=== PATIENT | female | born 1970 | race Caucasian/White ===

== ENCOUNTER → 2017-01-24 | Outpatient (CLI) | payer BC ==
[~2017-01-24] MED LIST: /WARF5TA; ASPI1TAB PO; AZIT-12; NEUR100C PO; PRED20TA; PROAAER10; TRAM50TA2 PO
--- NOTE | 2017-01-25 01:22 | REP ---
Clinical: Pain at the base of the first digit. Technique: AP, lateral, bilateral oblique views. Findings: Osseous structures, joint spaces, and surrounding soft tissues are relatively normal for age. No acute fracture dislocation. No subcutaneous emphysema or radiodense foreign body. No obvious soft tissue mass lesion or contour abnormality noted. Impression: Normal, age-appropriate right hand radiographs. Signed by Crow Xie MD 01/25/2017 01:13 A
== END ==
LOC: M WUC 18:41
PROVIDERS: ATTEND Physician Assistant
DX: M25.541 Pain in joints of right hand (principal)

== ENCOUNTER 2017-03-13 01:20 | Emergency (ER) | payer BC ==
[~2017-03-13] VITALS: Ht 149.9 cm; Wt 109.1 kg
[~2017-03-13 01:20] MED LIST changes: -AZIT-12; -PRED20TA; -PROAAER10
[2017-03-13] MEDS ORDERED: PRED20TA (01:33)
[2017-03-13] MEDS ORDERED: PROAAER10 (01:33)
[2017-03-13] MEDS ORDERED: AZIT-12 (01:33)
[2017-03-13 01:36] VITALS: BP 164/78
== END 2017-03-13 03:11 | disposition left against medical advice (07) ==
LOC: M ED 01:20
DX: R06.02 Shortness of breath (principal); Z53.29 Procedure and treatment not carried out because of patient's decision for other reasons

== ENCOUNTER → 2017-08-16 | Outpatient (CLI) | payer BC | LOC: M WUC 15:45 | DX: M54.5 Low back pain (principal) | CPT/HCPCS: 72110 ==

== ENCOUNTER → 2017-10-08 | Outpatient (CLI) | payer MEDICARE ==
[2017-10-08 16:22] LABS: BASO # 0.1 10^3/uL (0.0-0.2); BASO % 0.7 % (0.0-1.0); EOS # 0.3 10^3/uL (0.0-0.50); EOS % 2.5 % (0.0-3.0); HEMATOCRIT 43.9 % (36.0-47.0); HEMOGLOBIN 14.8 g/dl (12.0-15.5); IMMATURE GRANULOCYTE % 0.4 % (0-3.0); LYMPH # 2.1 10^3/uL (1.5-4.5); LYMPH % 21.4 % (24.0-44.0); MEAN CORPUSCULAR HEMOGLOBIN 28.6 pg (27.0-33.0); MEAN CORPUSCULAR HGB CONC 33.7 g/dl (32.0-36.5); MEAN CORPUSCULAR VOLUME 84.9 fl (80.0-96.0); MONO # 0.6 10^3/uL (0.0-0.8); MONO % 5.8 % (0.0-5.0); NEUTROPHILS # 6.9 10^3/uL (1.8-7.7); NEUTROPHILS % 69.2 % (36.0-66.0); PLATELET COUNT, AUTOMATED 260 10^3/uL (150-450); RED BLOOD COUNT 5.17 10^6/uL (4.00-5.40); RED CELL DISTRIBUTION WIDTH 14.5 % (11.5-14.5)
[2017-10-08 16:50] LABS: ALBUMIN 3.8 GM/DL (3.2-5.2); ALBUMIN/GLOBULIN RATIO 1.15 (1.00-1.93); ALKALINE PHOSPHATASE 89 U/L (45-117); ALT/SGPT 22 U/L (12-78); ANION GAP 6 MEQ/L (8-16); AST/SGOT 23 U/L (7-37); BILIRUBIN,TOTAL 0.6 MG/DL (0.2-1.0); BLOOD UREA NITROGEN 11 MG/DL (7-18); CALCIUM LEVEL 8.9 MG/DL (8.5-10.1); CARBON DIOXIDE LEVEL 28 MEQ/L (21-32); CHLORIDE LEVEL 109 MEQ/L (98-107); CREATININE FOR GFR 0.51 MG/DL (0.55-1.30); GLOMERULAR FILTRATION RATE > 60.0 (>58); GLUCOSE, FASTING 80 MG/DL (70-100); POTASSIUM SERUM 4.1 MEQ/L (3.5-5.1); SODIUM LEVEL 143 MEQ/L (136-145); TOTAL PROTEIN 7.1 GM/DL (6.4-8.2)
[2017-10-08 16:51] LABS: ERYTHROCYTE SEDIMENTATION RATE 10 mm/hr (0-20)
== END ==
LOC: M WUC 12:44
DX: R06.02 Shortness of breath (principal)
CPT/HCPCS: 84443

== ENCOUNTER → 2018-01-16 | Outpatient (CLI) | payer MEDICARE ==
[2018-01-16 18:40] LABS: THYROID PEROXIDASE ANTIBODY 284.1 U/ML (<60.0)
[2018-01-16 18:41] LABS: THYROGLOBULIN ANTIBODY > 500.0 U/ML (<60.0)
[2018-01-16 18:44] LABS: ALBUMIN 3.8 GM/DL (3.2-5.2); ALBUMIN/GLOBULIN RATIO 1.09 (1.00-1.93); ALKALINE PHOSPHATASE 84 U/L (45-117); ALT/SGPT 36 U/L (12-78); ANION GAP 6 MEQ/L (8-16); AST/SGOT 16 U/L (7-37); BILIRUBIN,TOTAL 0.5 MG/DL (0.2-1.0); BLOOD UREA NITROGEN 15 MG/DL (7-18); C REACTIVE PROTEIN QUANTITATIV 0.98 MG/DL (0.00-0.30); CARBON DIOXIDE LEVEL 29 MEQ/L (21-32); CHLORIDE LEVEL 106 MEQ/L (98-107); GLOMERULAR FILTRATION RATE > 60.0 (>58); GLUCOSE, FASTING 96 MG/DL (70-100); SODIUM LEVEL 141 MEQ/L (136-145); TOTAL PROTEIN 7.3 GM/DL (6.4-8.2)
[2018-01-16 18:54] LABS: BASO # 0.1 10^3/uL (0.0-0.2); BASO % 0.7 % (0.0-1.0); EOS # 0.2 10^3/uL (0.0-0.50); EOS % 1.9 % (0.0-3.0); HEMATOCRIT 45.6 % (36.0-47.0); HEMOGLOBIN 15.5 g/dl (12.0-15.5); IMMATURE GRANULOCYTE % 0.2 % (0-3.0); LYMPH # 2.3 10^3/uL (1.5-4.5); LYMPH % 25.8 % (24.0-44.0); MEAN CORPUSCULAR HEMOGLOBIN 28.8 pg (27.0-33.0); MEAN CORPUSCULAR VOLUME 84.8 fl (80.0-96.0); MONO # 0.5 10^3/uL (0.0-0.8); MONO % 6.2 % (0.0-5.0); NEUTROPHILS # 5.7 10^3/uL (1.8-7.7); NEUTROPHILS % 65.2 % (36.0-66.0); PLATELET COUNT, AUTOMATED 290 10^3/uL (150-450); RED BLOOD COUNT 5.38 10^6/uL (4.00-5.40); WHITE BLOOD COUNT 8.7 10^3/uL (4.0-10.0)
[2018-01-16 19:17] LABS: ERYTHROCYTE SEDIMENTATION RATE 5 mm/hr (0-20)
[2018-01-19 00:08] LABS: ANA (HEP2) Negative (.); Lyme Disease IgG/IgM Antibodie <0.91 ISR (0.00-0.90); Lyme Disease IgM Ab Quantitati <0.80 index (0.00-0.79)
== END ==
LOC: M SMT 13:31
DX: R94.6 Abnormal results of thyroid function studies (principal); R07.89 Other chest pain; Z13.1 Encounter for screening for diabetes mellitus; M51.34 Other intervertebral disc degeneration, thoracic region
CPT/HCPCS: 84443

== ENCOUNTER 2018-02-15 18:36 | Emergency (ER) | payer MEDICARE ==
[2018-02-15] MEDS: ONDANSETRON 4MG/2ML VIAL (J2405) IV (19:24)
[2018-02-15] MEDS: NS 1,000 ML IV (19:26)
[2018-02-15] MEDS: MECLIZINE 25 MG TABLET PO (19:32)
[2018-02-15 19:34] LABS: BASO % 0.3 % (0.0-1.0); EOS # 0.1 10^3/uL (0.0-0.50); HEMATOCRIT 47.5 % (36.0-47.0); HEMOGLOBIN 16.2 g/dl (12.0-15.5); IMMATURE GRANULOCYTE % 0.4 % (0-3.0); LYMPH # 1.2 10^3/uL (1.5-4.5); LYMPH % 12.6 % (24.0-44.0); MEAN CORPUSCULAR HEMOGLOBIN 29.2 pg (27.0-33.0); MEAN CORPUSCULAR HGB CONC 34.1 g/dl (32.0-36.5); MEAN CORPUSCULAR VOLUME 85.7 fl (80.0-96.0); MONO # 0.5 10^3/uL (0.0-0.8); MONO % 5.1 % (0.0-5.0); NEUTROPHILS # 7.4 10^3/uL (1.8-7.7); NEUTROPHILS % 80.6 % (36.0-66.0); PLATELET COUNT, AUTOMATED 255 10^3/uL (150-450); RED BLOOD COUNT 5.54 10^6/uL (4.00-5.40); RED CELL DISTRIBUTION WIDTH 13.9 % (11.5-14.5); WHITE BLOOD COUNT 9.2 10^3/uL (4.0-10.0)
[2018-02-15 20:00] LABS: ALBUMIN 3.8 GM/DL (3.2-5.2); ALKALINE PHOSPHATASE 85 U/L (45-117); ALT/SGPT 27 U/L (12-78); ANION GAP 7 MEQ/L (8-16); AST/SGOT 14 U/L (7-37); BILIRUBIN,TOTAL 0.6 MG/DL (0.2-1.0); BLOOD UREA NITROGEN 12 MG/DL (7-18); CALCIUM LEVEL 9.1 MG/DL (8.5-10.1); CARBON DIOXIDE LEVEL 29 MEQ/L (21-32); CHLORIDE LEVEL 104 MEQ/L (98-107); CPK CREATINE PHOSPHOKINASE 103 U/L (26-192); CREATININE FOR GFR 0.74 MG/DL (0.55-1.30); FREE T4 0.86 NG/DL (0.76-1.46); GLOMERULAR FILTRATION RATE > 60.0 (>58); GLUCOSE, FASTING 115 MG/DL (70-100); SODIUM LEVEL 140 MEQ/L (136-145); TOTAL PROTEIN 7.6 GM/DL (6.4-8.2); TROPONIN I < 0.02 NG/ML (< 0.10)
[2018-02-15 20:05] LABS: BILIRUBIN,DIRECT 0.1 MG/DL (0.0-0.2); CK-MB VALUE MASS < 1.0 NG/ML (<3.6); MB/CK RELATIVE INDEX 0.97 (< OR =4)
[2018-02-15] MEDS: KETOROLAC 30 MG/ML VIAL (J1885) IV (20:18)
[2018-02-15] MEDS: LORazepam 1 MG TAB PO (21:13)
== END 2018-02-15 21:18 | disposition home or self-care (01) ==
LOC: M ED 18:36
DX: H81.399 Other peripheral vertigo, unspecified ear (principal)
CPT/HCPCS: J2405

== ENCOUNTER → 2018-09-12 | Outpatient (CLI) | payer BC, MEDICARE ==
[~2018-09-12] MED LIST changes: -/WARF5TA; -ASPI1TAB PO; +ASPI81TA26 PO; +AZIT-12; +COUM1TAB17; +MECL-68 PO; +PRED20TA; +PROAAER10; +ZOFR4TAB14 PO
--- NOTE | 2018-09-12 10:10 | REP ---
CHEST, TWO VIEWS: COMPARISON: 10/08/2017 There is no evidence of acute infiltrate. No pleural effusion is seen. The heart is normal in size. The mediastinal silhouette is unremarkable. The visualized osseous structures are intact. There are degenerative changes of the spine. IMPRESSION: No acute pulmonary disease. Electronically Signed by Binh Cabezas MD 09/12/2018 04:01 P
== END ==
LOC: M WUC 08:56
PROVIDERS: ATTEND Physician Assistant
DX: R05 Cough (principal)

== ENCOUNTER → 2018-10-08 | Outpatient (CLI) | payer BC ==
[2018-10-08 17:40] LABS: ALBUMIN 3.8 GM/DL (3.2-5.2); ALT/SGPT 24 U/L (12-78); BILIRUBIN,TOTAL 0.6 MG/DL (0.2-1.0); BLOOD UREA NITROGEN 10 MG/DL (7-18); CARBON DIOXIDE LEVEL 27 MEQ/L (21-32); CHLORIDE LEVEL 109 MEQ/L (98-107); CREATININE FOR GFR 0.57 MG/DL (0.55-1.30); GLOMERULAR FILTRATION RATE > 60.0 (>58); GLUCOSE, FASTING 96 MG/DL (70-100); NT-PRO BNP 50 PG/ML (<125); POTASSIUM SERUM 4.4 MEQ/L (3.5-5.1); SODIUM LEVEL 142 MEQ/L (136-145); TOTAL PROTEIN 6.6 GM/DL (6.4-8.2)
[2018-10-08 17:44] LABS: BASO # 0.1 10^3/uL (0.0-0.2); BASO % 0.8 % (0.0-1.0); EOS # 0.3 10^3/uL (0.0-0.50); EOS % 3.2 % (0.0-3.0); HEMATOCRIT 44.1 % (36.0-47.0); HEMOGLOBIN 14.8 g/dl (12.0-15.5); LYMPH # 2.2 10^3/uL (1.5-4.5); LYMPH % 25.5 % (24.0-44.0); MEAN CORPUSCULAR HEMOGLOBIN 29.6 pg (27.0-33.0); MEAN CORPUSCULAR HGB CONC 33.6 g/dl (32.0-36.5); MEAN CORPUSCULAR VOLUME 88.2 fl (80.0-96.0); MONO # 0.7 10^3/uL (0.0-0.8); MONO % 7.6 % (0.0-5.0); NEUTROPHILS # 5.3 10^3/uL (1.8-7.7); NEUTROPHILS % 62.5 % (36.0-66.0); PLATELET COUNT, AUTOMATED 235 10^3/uL (150-450); WHITE BLOOD COUNT 8.5 10^3/uL (4.0-10.0)
== END ==
LOC: M SMT 11:42
PROVIDERS: ATTEND Family Medicine
DX: Z86.718 Personal history of other venous thrombosis and embolism (principal); J15.8 Pneumonia due to other specified bacteria; R06.02 Shortness of breath

== ENCOUNTER → 2019-03-14 | Outpatient (CLI) | payer BC, SELFPAY ==
--- NOTE | 2019-03-14 09:26 | REP ---
BILATERAL HAND SERIES: Four views of bilateral hands are performed. There is no fracture or dislocation. No bone lesion is seen. There is no significant arthritic change at the radiocarpal or intercarpal joints. Metacarpal phalangeal joints also appear normal. There is minimal early arthritic change of the distal interphalangeal joints with minimal joint space narrowing. Diffusely bilaterally. There are no other significant findings. IMPRESSION: Minimal early arthritic changes at the distal interphalangeal joints bilaterally in the form of minimal diffuse joint space narrowing. Electronically Signed by Binh Cabezas MD 03/14/2019 06:27 P
== END ==
LOC: M SMT 08:44
PROVIDERS: ATTEND Physician Assistant
DX: M79.645 Pain in left finger(s) (principal)

== ENCOUNTER → 2019-07-14 | Outpatient (REF) | payer BC ==
[~2019-07-14] MED LIST changes: -MECL-68 PO; +MECL1TAB31 PO
[2019-07-14 12:53] LABS: HEMATOCRIT 46.3 % (36.0-47.0); HEMOGLOBIN 15.3 g/dl (12.0-15.5); MEAN CORPUSCULAR HEMOGLOBIN 29.1 pg (27.0-33.0); PLATELET COUNT, AUTOMATED 249 10^3/uL (150-450); RED BLOOD COUNT 5.26 10^6/uL (4.00-5.40); WHITE BLOOD COUNT 7.6 10^3/uL (4.0-10.0)
[2019-07-14 13:03] LABS: ALBUMIN 3.9 GM/DL (3.2-5.2); ALT/SGPT 29 U/L (12-78); BILIRUBIN,TOTAL 0.6 MG/DL (0.2-1.0); BLOOD UREA NITROGEN 15 MG/DL (7-18); CALCIUM LEVEL 9.3 MG/DL (8.5-10.1); CARBON DIOXIDE LEVEL 26 MEQ/L (21-32); CHLORIDE LEVEL 107 MEQ/L (98-107); CHOLESTEROL LEVEL 238 MG/DL (<200); CHOLESTEROL RISK RATIO 4.666 (<5); CREATININE FOR GFR 0.57 MG/DL (0.55-1.30); FREE T4 0.89 NG/DL (0.76-1.46); GLOMERULAR FILTRATION RATE > 60.0 (>58); GLUCOSE, FASTING 97 MG/DL (70-100); HDL CHOLESTEROL 51 MG/DL (>40); LDL CHOLESTEROL 164 MG/DL (<100); NON-HDL-C 187 MG/DL; POTASSIUM SERUM 4.4 MEQ/L (3.5-5.1); RHEUMATOID FACTOR QUANT < 10.0 IU/ML (<15.0); SODIUM LEVEL 141 MEQ/L (136-145); TOTAL PROTEIN 7.1 GM/DL (6.4-8.2); TRIGLYCERIDES LEVEL 115 MG/DL (<150)
[2019-07-14 13:05] LABS: TOTAL 25(OH) VITAMIN D 17.5 NG/ML (30.0-100.0)
[2019-07-16 00:06] LABS: ANA (HEP2) Negative (.)
== END ==
LOC: M SFHCPLAZ 09:02
PROVIDERS: ATTEND Physician Assistant
DX: Z00.00 Encounter for general adult medical examination without abnormal findings (principal); Z13.29 Encounter for screening for other suspected endocrine disorder; Z13.220 Encounter for screening for lipoid disorders; R76.0 Raised antibody titer; E55.9 Vitamin D deficiency, unspecified

== ENCOUNTER 2019-10-19 10:52 | Inpatient (IN) | payer BC ==
[~2019-10-19] VITALS: Ht 152.4 cm; Wt 110.1 kg
[2019-10-19] MEDS ORDERED: LEVO50TA5 PO (11:29)
[2019-10-19] MEDS ORDERED: NS 500 ML IV ONE (12:15)
[2019-10-19] MEDS ORDERED: ISOVUE-370 76% 100ML VIAL As Ordered ONE (12:23)
[2019-10-19] MEDS: ALBUTEROL 90 MCG/ACT 8GM HFA INHALER INH SCH ×3 (12:30→13:31)
[2019-10-19 12:33] LABS: BASO # 0.1 10^3/uL (0.0-0.2); BASO % 1.1 % (0.0-1.0); EOS # 0.3 10^3/uL (0.0-0.5); EOS % 3.9 % (0.0-3.0); HEMATOCRIT 44.4 % (36.0-47.0); HEMOGLOBIN 15.2 g/dl (12.0-15.5); LYMPH # 2.4 10^3/uL (1.5-5.0); LYMPH % 29.1 % (24.0-44.0); MEAN CORPUSCULAR HEMOGLOBIN 29.5 pg (27.0-33.0); MEAN CORPUSCULAR HGB CONC 34.2 g/dl (32.0-36.5); MEAN CORPUSCULAR VOLUME 86.2 fl (80.0-96.0); MONO # 0.5 10^3/uL (0.0-0.8); MONO % 5.5 % (0.0-5.0); PLATELET COUNT, AUTOMATED 247 10^3/uL (150-450); RED BLOOD COUNT 5.15 10^6/uL (4.00-5.40); WHITE BLOOD COUNT 8.3 10^3/uL (4.0-10.0)
[2019-10-19 12:36] LABS: BLOOD UREA NITROGEN 10 MG/DL (7-18); CALCIUM LEVEL 8.9 MG/DL (8.5-10.1); CARBON DIOXIDE LEVEL 28 MEQ/L (21-32); CHLORIDE LEVEL 106 MEQ/L (98-107); CREATININE FOR GFR 0.54 MG/DL (0.55-1.30); GLOMERULAR FILTRATION RATE > 60.0 (>51); GLUCOSE, FASTING 89 MG/DL (70-100); SODIUM LEVEL 143 MEQ/L (136-145)
[2019-10-19 12:38] LABS: INR 0.99; PARTIAL THROMBOPLASTIN TIME 27.4 SECONDS (25.0-38.4); PROTHROMBIN TIME 12.8 SECONDS (11.8-14.0)
--- NOTE | 2019-10-19 14:22 | REP ---
CT ANGIOGRAM CHEST: TECHNIQUE: Axial contrast enhanced images from the thoracic inlet to the upper abdomen using 100 mL Isovue 370 intravenous contrast material with multiplanar reformations. COMPARISON: 04/22/2015 The lungs show mild diffuse increased interstitial markings compatible with mild diffuse interstitial infiltrates or edema. There is mild cardiomegaly. There is no pleural or pericardial effusion. There is no mediastinal, hilar or chest wall lymphadenopathy. Thoracic aorta is normal in caliber with no dissection or aneurysm. There is no evidence of pulmonary embolism. The patient has had a prior cholecystectomy. There are degenerative changes of the spine. IMPRESSION: No CT evidence of pulmonary embolism or aortic dissection. Mild diffuse bilateral interstitial infiltrate or edema. Mild cardiomegaly. Electronically Signed by Binh Cabezas MD 10/19/2019 09:58 P
[2019-10-19 14:41] LABS: CK-MB VALUE MASS < 1.0 NG/ML (<3.6); CPK CREATINE PHOSPHOKINASE 49 U/L (26-192); MB/CK RELATIVE INDEX 2.04 (< OR =4); NT-PRO BNP 29 PG/ML (<125); TROPONIN I < 0.02 NG/ML (< 0.10)
[2019-10-19] MEDS ORDERED: FUROSEMIDE 40MG/4ML VIAL (J1940) IV ONE (15:15)
[2019-10-19] MEDS ORDERED: methylPREDNISolone INJ 125 MG/2 ML VIAL (J2930) IV STA (16:04)
[2019-10-19] MEDS ORDERED: DOXY100T PO (16:05)
--- NOTE | 2019-10-19 16:30 | HPEPDOC ---
General Date of Admission 10/19/19 Date of Service: Oct 19, 2019 Chief Complaint The patient is a 49-year-old female admitted with a reason for visit of SOB. Source: Patient Exam Limitations: No limitations Timing/Duration: Day(s) Severity: Moderate Associated Symptoms: Cough, Shortness of breath History of Present Illness Patient is 49 years old female with past history of unprovoked DVT and PE around 10 years, lupus anticoagulant positive presented to the hospital with severe dyspnea. Patient stated that around 10 days ago she developed severe cough with dyspnea. PCP prescribed doxycycline and she took doxycycline for past 7 days. Her cough improved but no dyspnea. In emergency room patient was found to have on CTA: no pulmonary emboli, Mild diffuse bilateral interstitial infiltrate or edema. BNP is normal. CBC pertinent for mild eosinophilia, no leukocytosis. Of note patient stated that in June she had bilateral pneumonia treated with antibiotics. Patient denied fever, chills, nausea, vomiting, chest pain, palpitations diarrhea or dysuria. Home Medications Scheduled Doxycycline Hyclate (Doxycycline Hyclate) 100 Mg Tablet, 100 MG PO BID, (Reported) started 10/13/19 for 7 days Levothyroxine Sodium (Levothyroxine Sodium) 50 Mcg Tablet, 50 MCG PO QAM, (Reported) Allergies Coded Allergies: No Known Allergies (Verified , 08/18/09) Past Medical History Medical History DVT/PE DYSPHAGIA- SLEEPS WITH HEAD OF THE BED UP OBESITY HISTORY OF ABNORMAL LUPUS ANTICOAGULANT Hypothyroidism Surgical History X2 GALL BLADDER REMOVAL LT HEEL- DEBRIDEMENT Family History FATHER: ALIVE 67 YRS, HEART DZ, BLADDER CA, PROSTATE CA,BONE CANCER MOTHER: 60 YRS, BREAST CA, PERIPHERAL VASC. DZ SIBLINGS: ALIVE SON(S): ALIVE PATERNAL GRAND FATHER: LUNG CANCER PATERNAL GRAND MOTHER: BREAST CANCER MATERNAL GRAND MOTHER: BREAST CANCER 1 BROTHER(S) - HEALTHY. 2 SON(S) - HEALTHY. Social History * Smoker: Denies Alcohol: Denies Drugs: denies A-FIB/CHADSVASC A-FIB History Current/History of A-Fib/PAF?: No Current PO Anticoag Therapy: No Review of Systems Constitutional: Denies: Chills, Fever Eyes: Denies: Pain, Vision change ENT: Denies: Head Aches, Ear Pain Skin: Denies: Rash, Lesions Pulmonary: Reports: Dyspnea, Cough Cardiovascular: Denies: Chest Pain, Palpitations Gastrointestinal: Reports: Nausea Genitourinary: Reports: Dysuria, Frequency Hematologic: Reports: Bruising Endocrine: Reports: Polydipsia, Polyphagia Musculoskeletal: Reports: Neck Pain Neurological: Reports: Weakness Psych: Reports: Mood Normal Physical Examination General Exam: Positive: Alert, Cooperative Eye Exam: Positive: PERRLA ENT Exam: Positive: Atraumatic, Mucous membr. moist/pink Neck Exam: Positive: Supple; Negative: JVD Chest Exam: Positive: Clear to auscultation Heart Exam: Positive: Rate Normal Telemetry: Positive: No significant arrhythmia Abdomen Exam: Positive: Normal bowel sounds Extremity Exam: Negative: Clubbing, Cyanosis Skin Exam: Positive: Nl turgor and temperature Neuro Exam: Positive: Normal Gait, Strength at 5/5 X4 ext Psych Exam: Positive: Mental status NL Vital Signs Vital Signs Date Time Temp Pulse Resp B/P (MAP) Pulse Ox O2 Delivery O2 Flow Rate FiO2 10/19/19 14:49 97.5 95 12 155/83 (107) 97 Room Air Laboratory Data Labs 24H Laboratory Tests 2 10/19/19 11:42: 10/19/19 11:50: Immature Granulocyte % (Auto) 0.4, Neutrophils (%) (Auto) 60.0, Lymphocytes (%) (Auto) 29.1, Monocytes (%) (Auto) 5.5H, Eosinophils (%) (Auto) 3.9H, Basophils (%) (Auto) 1.1H, Neutrophils # (Auto) 5.0, Lymphocytes # (Auto) 2.4, Monocytes # (Auto) 0.5, Eosinophils # (Auto) 0.3, Basophils # (Auto) 0.1, Nucleated Red Blood Cells % (auto) 0.0, Prothrombin Time 12.8, Prothromb Time International Ratio 0.99, Activated Partial Thromboplast Time 27.4, Anion Gap 9, Glomerular Filtration Rate > 60.0, Calcium Level 8.9, Total Creatine Kinase 49, Creatine Kinase MB < 1.0, Creatine Kinase MB Relative Index 2.04, Troponin I < 0.02, WV-Xon-D-Type Natriuretic Peptide 29 CBC/BMP Laboratory Tests 10/19/19 11:50 Microbiology Microbiology 10/19/19 Respiratory Panel (PCR) - Final, Complete Assessment/Plan Patient is 49 years old female with past history of unprovoked DVT and PE around 10 years, lupus anticoagulant positive presented to the hospital with severe dyspnea. Patient stated that around 10 days ago she developed severe cough with dyspnea. PCP prescribed doxycycline and she took doxycycline for past 7 days. Her cough improved but no dyspnea. In emergency room patient was found to have on CTA: no pulmonary emboli, Mild diffuse bilateral interstitial infiltrate or edema. BNP is normal. CBC pertinent for mild eosinophilia, no leukocytosis. Of note patient stated that in June she had bilateral pneumonia treated with antibiotics. Patient denied fever, chills, nausea, vomiting, chest pain, palpi tations diarrhea or dysuria. Problems (1) Dyspnea Status: Acute Problem Text: Unclear etiology Patient Covid 19 negative There is concern for diffuse parenchymal diseases including acute interstitial pneumonia, eosinophilic pneumonia, cryptogenic pneumonia I will prescribe Solu-Medrol once and prednisone 40 mg by mouth daily Appreciate/agree with courtesy bus driver consult Echo PT/OT Plan / VTE VTE Prophylaxis Ordered?: Yes ANTONIA YEE DO Oct 19, 2019 16:30
[2019-10-19 17:10] VITALS: BP 130/105
[2019-10-19] MEDS: PANTOPRAZOLE 40MG TAB (PROTONIX) PO SCH (17:29)
[2019-10-19] MEDS: IPRATROPIUM 0.5MG/ALBUTEROL 2.5MG INH SOL UD 3ML (DUONEB)(J7620) NEB SCH (19:58)
[2019-10-19] MEDS: ENOXAPARIN 40MG/0.4ML SYRINGE (J1650 PER 10MG) SC SCH (20:34)
[2019-10-19] MEDS: ACETAMINOPHEN TAB 650MG DOSE (2X325MG) PO PRN (20:40)
[2019-10-19 22:00] VITALS: BP 122/79
[2019-10-20] MEDS: IPRATROPIUM 0.5MG/ALBUTEROL 2.5MG INH SOL UD 3ML (DUONEB)(J7620) NEB SCH ×4 (02:40→19:53)
[2019-10-20] MEDS: LEVOTHYROXINE 50MCG TABLET (0.05MG) PO SCH (05:31)
[2019-10-20 06:00] VITALS: BP 150/90
[2019-10-20 06:14] LABS: HEMATOCRIT 47.1 % (36.0-47.0); HEMOGLOBIN 16.5 g/dl (12.0-15.5); MEAN CORPUSCULAR HEMOGLOBIN 29.6 pg (27.0-33.0); MEAN CORPUSCULAR VOLUME 84.6 fl (80.0-96.0); PLATELET COUNT, AUTOMATED 293 10^3/uL (150-450); RED BLOOD COUNT 5.57 10^6/uL (4.00-5.40); WHITE BLOOD COUNT 13.7 10^3/uL (4.0-10.0)
[2019-10-20 06:38] LABS: BLOOD UREA NITROGEN 12 MG/DL (7-18); CALCIUM LEVEL 9.2 MG/DL (8.5-10.1); CARBON DIOXIDE LEVEL 24 MEQ/L (21-32); CHLORIDE LEVEL 105 MEQ/L (98-107); CREATININE FOR GFR 0.64 MG/DL (0.55-1.30); GLOMERULAR FILTRATION RATE > 60.0 (>51); GLUCOSE, FASTING 147 MG/DL (70-100); MAGNESIUM LEVEL 2.2 MG/DL (1.8-2.4); POTASSIUM SERUM 3.5 MEQ/L (3.5-5.1); SODIUM LEVEL 139 MEQ/L (136-145)
--- NOTE | 2019-10-20 07:22 | ECGEPIP ---
[facility] - ED Test Date: 2019-10-19 Pat Name: JEREMY LEE Department: Room: [place] [address] Gender: Female Lead Process Engineer: aliyah : 1970 Requested By: Estella Cabello Order Number: [id number] Reading MD: Chaparro Boss Measurements Intervals [place] Rate: 80 P: 46 [place]: 193 QRS: -16 QRSD: 88 T: 35 QT: 385 QTc: 446 Interpretive Statements SINUS RHYTHM WITH MARKED SINUS ARRHYTHMIA POOR R WAVE PROGRESSION SIMILAR TO 02/15/18 Electronically Signed on 10-20-2019 7:22:19 EDT by Chaparro Boss
[2019-10-20] MEDS: ACETAMINOPHEN TAB 650MG DOSE (2X325MG) PO PRN (07:59)
[2019-10-20] MEDS: BUDESONIDE 180MCG INHALER (PULMICORT FLEXHALER) INH SCH ×2 (08:00→19:53)
[2019-10-20] MEDS: PANTOPRAZOLE 40MG TAB (PROTONIX) PO SCH (08:00)
[2019-10-20] MEDS: predniSONE 20 MG TAB PO SCH (08:00)
--- NOTE | 2019-10-20 09:05 | ECHO ---
DATE OF PROCEDURE: 10/19/2019 DATE OF : 1970 AGE: 49 REFERRING PROVIDER: Dr. Derek Braga REASON FOR THE STUDY: Shortness of breath. PATIENT LOCATION: Room 4229. 2-D MEASUREMENTS: IVS: 1.1 cm LV: 4.5 cm LVPW: 1.1 cm LA: 3.2 cm Aorta: 3.0 cm IVC: 1.3 cm DOPPLER MEASUREMENTS: Peak velocity across the aortic valve: 1.2 m/sec Mitral E: 0.5, Mitral A: 0.7 with a ratio of 0.7 2-D COMMENTS: 1. Normal left ventricular size, wall thickness, and normal global left ventricular systolic function. The estimated left ventricular systolic function is 55-60%. 2. Normal left atrium. Normal right atrium and right ventricle. 3. The atrial septum appeared to be normal without evidence of defect or shunt. 4. Normal aortic root. 5. Trace to small pericardial effusion, no evidence of cardiac tamponade. 6. The aortic valve, mitral valve, and tricuspid valve appeared to be normal. The pulmonic valve was not well visualized. The proximal pulmonary artery branches also were not well visualized. 7. The inferior vena cava was normal in size, central venous pressure is most likely normal. DOPPLER: Only trace mitral regurgitation detected. Abnormal relaxation pattern was noted across the mitral valve leaflets as well as the mitral valve annulus consistent with features of grade 1 left ventricular diastolic dysfunction. IMPRESSION: 1. Normal global left ventricular systolic function. There are some features of left ventricular diastolic dysfunction manifested by abnormal relaxation. 2. Trace mitral regurgitation. 3. Trace to small pericardial effusion noted in limited views, no evidence of cardiac tamponade. 4. Bubble study done with 80 mL normal saline in limited views did not reveal any bubbles from the right heart chambers to the left heart chambers. 5. The study was technically limited due to poor acoustic window.
--- NOTE | 2019-10-20 11:49 | IPNPDOC ---
Text Note Date of Service The patient was seen on 10/20/19. NOTE Subjective: Patient continues to have dyspnea on exertion, during walking on 2 L her saturation dropped to 88% Objective: VITAL SIGNS: Please see below. GENERAL: awake, alert, NAD, obese female HEENT: NCAT, anicteric sclera, VANESSA NECK: supple, no JVD CARDIOVASCULAR EXAMINATION: NS1S2, regular rate/rhythm RESPIRATORY EXAMINATION: Diminished lung sounds bilaterally ABDOMINAL EXAMINATION: positive bowel sounds x 4, NT EXTREMITIES: no cyanosis, clubbing, edema SKIN: warm, no rashes. NEUROLOGICAL EXAMINATION: AAO x 3, no motor/sensory deficits PSYCHIATRIC EXAMINATION: calm, normal affect Assessment/Plan Patient is 49 years old female with past history of unprovoked DVT and PE around 10 years, lupus anticoagulant positive presented to the hospital with severe dyspnea. Patient stated that around 10 days ago she developed severe cough with dyspnea. PCP prescribed doxycycline and she took doxycycline for past 7 days. Her cough improved but no dyspnea. In emergency room patient was found to have on CTA: no pulmonary emboli, Mild diffuse bilateral interstitial infiltrate or edema. BNP is normal. CBC pertinent for mild eosinophilia, no leukocytosis. Of note patient stated that in June she had bilateral pneumonia treated with antibiotics. Patient denied fever, chills, nausea, vomiting, chest pain, palpitations diarrhea or dysuria. Problems (1) Dyspnea Most likely secondary to bronchospasm secondary to previous bilateral pneumonia superimposed with possible obstructive sleep apnea Patient Covid 19 negative Continue by mouth prednisone Continue inhalers Echo unremarkable Appreciate/agree with special education paraprofessional consult Sleep study in the outpatient settings PT/OT Morbidly obese Computed care Patient will benefit from bariatric surgery Hypertension Continue to monitor Lisinopril 10 mg daily VS,Fishbone, I+O VS, Fishbone, I+O Laboratory Tests 10/19/19 11:50 10/20/19 05:51 10/20/19 05:52 Vital Signs Date Time Temp Pulse Resp B/P (MAP) Pulse Ox O2 Delivery O2 Flow Rate FiO2 10/20/19 06:00 97.6 95 20 150/90 (110) 90 Nasal Cannula 2.0 I&O- Last 24 Hours up to 6 AM 10/20/19 06:00 Intake Total 820 ml Output Total 600 ml Balance 220 ml ANTONIA YEE DO Oct 20, 2019 11:49
[2019-10-20] MEDS ORDERED: lisinopriL 10 MG TAB PO ONE (12:00)
[2019-10-20 13:12] LABS: CK-MB VALUE MASS < 1.0 NG/ML (<3.6); CPK CREATINE PHOSPHOKINASE 64 U/L (26-192); MB/CK RELATIVE INDEX 1.56 (< OR =4); TROPONIN I < 0.02 NG/ML (< 0.10)
[2019-10-20 14:00] VITALS: BP 130/74
[2019-10-20 14:12] VITALS: O2SAT 92
--- NOTE | 2019-10-20 14:13 | CR ---
DATE OF CONSULTATION: 10/20/2019 ATTENDING PHYSICIAN: Derek Braga DO ATTENDING PHYSICIAN: Jocelyn Collazo MD Reason for Consultation: Shortness of breath HISTORY OF PRESENT ILLNESS: Ms. Barahona is a 49-year-old female who had presented to the [facility] Emergency Department with complaint of shortness of breath. She had stated that her shortness of breath started approximately a week to two weeks ago when she had a cough, as well. She denied any sputum production. However, stated that she did have some chills and fever during that time. She stated that her cough had improved, as well as her fevers and chills. However, she continued to be short of breath. She stated that she would get short of breath just walking to her mailbox. She states that her shortness of breath appears to be worse when lying down and also at nighttime. She does have a remote history of multiple pneumonias, as well as episodes of shortness of breath in her medical record, as well as reported by her. She states that she has been told that she has bronchitis and has been placed on antibiotics, including doxycycline, azithromycin, and levofloxacin within the past couple years several times a year. She has also been started on HFA and levalbuterol nebulizer. She stated that the levalbuterol nebulizer does help. She has been noncompliant with her inhaler but states that her nebulizer does help her. She states that she does have a history of pulmonary embolism back in 2009, for which she was told that she had a provoked deep venous thrombosis (DVT) and had been placed on Coumadin. She denies any formal diagnosis of asthma in the past. HOME MEDICATIONS: - doxycycline 100 mg by mouth twice a day - levothyroxine 50 mcg by mouth every morning ALLERGIES: No known allergies. PAST MEDICAL HISTORY: 1. Deep venous thrombosis and pulmonary embolism. 2. Dysphagia. 3. Obesity. 4. History of obstructive sleep apnea. 5. History of abnormal lupus anticoagulant. 6. Hypothyroidism. 7. Bronchitis. SURGICAL HISTORY: 1. (C) section times two. 2. Cholecystectomy. 3. Left heel debridement. FAMILY HISTORY: The patient's father is alive. He is currently 67 years old. He has a history of heart disease, bladder cancer, prostate cancer, and bone metastasis. The patient's mother is . She at the age of 6060 years old from breast cancer and peripheral vascular disease. She does have siblings who are alive and well, as well as a son who is alive and well. She has one brother and two sons. SOCIAL HISTORY: The patient lives at home with her . She is a never smoker. She denies alcohol use. She denies any intravenous (IV) or illicit drug use. She denies any chemical or inhalational exposures. REVIEW OF SYSTEMS: CONSTITUTIONAL: The patient currently denies any fevers or chills. She denies any night sweats. She denies any unintentional weight loss or weight gain. HEENT: The patient denies any change in her vision. Denies any headache. She denies any pain in her ears. She denies any change in her hearing. INTEGUMENTARY: The patient denies any rashes or lesions. PULMONARY: The patient reports a cough, as well as some shortness of breath. She denies any sputum production. She denies any hemoptysis. CARDIOVASCULAR: The patient denies any chest pain. She denies palpitations. She denies feelings of her heart racing. GASTROINTESTINAL: The patient does report some nausea. However, she denies any vomiting. She denies any diarrhea or constipation. GENITOURINARY: The patient currently denies any dysuria, increased frequency, or urgency. HEMATOLOGIC: The patient admits to easy bruising but denies any history of easy bleeding. She admits to history of DVT and pulmonary embolism. ENDOCRINOLOGY: The patient admits to a history of polydipsia and polyphagia. She denies any formal diagnosis of diabetes. She admits to hypothyroidism. MUSCULOSKELETAL: The patient admits to chronic neck pain. NEUROLOGIC: The patient denies any changes in her gait or speech. PSYCHIATRIC: The patient admits to a history of depression. She denies any anxiety. PHYSICAL EXAMINATION: VITAL SIGNS: Temperature 97.6, pulse 95, respiratory rate 20, blood pressure 150/90, pulse oximetry 96% on room air. GENERAL: The patient is awake, alert, and oriented. She does not appear in acute distress. She is lying comfortably in bed. HEENT: Atraumatic, normocephalic. Eyes anicteric. Trachea is midline. NECK: Is alicea. CARDIOVASCULAR: There is a normal S1, S2. Regular rate and rhythm. No clicks, rubs, or murmurs auscultated. PULMONARY: The patient has clear vesicular breath sounds bilaterally. There is symmetric chest expansion. The patient has overall poor respiratory effort with some shallow breaths. There is no conversational dyspnea. ABDOMINAL EXAMINATION: The patient is morbidly obese. The abdomen is soft, nondistended, nontender. There is no rebound tenderness or guarding. Normoactive bowel sounds throughout. EXTREMITIES: No edema. No clubbing or cyanosis. Full and equal pulse bilateral upper and lower extremities. INTEGUMENTARY: The patient has normal skin turgor and temperature. There is no rash, no lesion. NEUROLOGICAL: No focal neurological deficits. PSYCHIATRIC: Mood and affect appear appropriate for situation. LABORATORY DATA: Hematology: White blood cell 13.7, hemoglobin 15.5, hematocrit 47.5, platelet count 293. Chemistry: Sodium 139, potassium 3.5, chloride 105, carbon dioxide 24, BUN 12, creatinine 0.64, fasting glucose 147, calcium 9.2, magnesium 2.2. Coagulation: PT 12.8, INR 0.99, PTT 27.4. Echocardiogram from 10/19/2019: Demonstrating normal ventricular size, wall thickness, and normal global left ventricular systolic function of 55% to 60%, normal left atrium, trace mitral regurgitation, trace small pericardial effusion, no evidence of cardiac tamponade. CT chest 10/19/19- no large PE. Respiratory motion artifact and appears to be expiratory film. In RUL posteriorly there is some GGO and mild opacity. In lower lobes bilaterally there are dependent changes and atelectasis and crowding of pulmonary vasculature likely due to expiratory film. Some mild mosaic attenuation. No mediastinal/hilar adenopathy. no pleural effusions. INPATIENT MEDICATIONS: - prednisone 40 mg daily by mouth - Synthroid 50 mcg every morning at 6 by mouth - Lovenox 40 mg nightly - DuoNebs - Tylenol 650 mg - Protonix 40 mg daily by mouth ASSESSMENT AND PLAN: Ms. Barahona is a 49-year-old female who presented to the [facility] Emergency Department with dyspnea and without hypoxia. She had what appeared to be a viral illness approximately 1-2 weeks ago and which has appeared to be resolved. However, continues to have some shortness of breath and intermittent cough that has not resolved. 1. Dyspnea without hypoxia. The patient is currently on room air. Her shortness of breath is likely secondary to some form of reactive airway disease, possibly secondary to postviral bronchospasm. She was started on levalbuterol nebulizer, as well as HFA, by primary care provider, which she feels does help. This can be continued inpatient. She was started on prednisone 40 mg daily yesterday. Will continue for 5 days' treatment. Additionally, would recommend starting Pulmicort, as the patient likely has a degree of reactive airway disease. Recommend followup for pulmonary function testing after discharge from the hospital for a formal diagnosis of asthma. 2. Morbid obesity with suspected obstructive sleep apnea, possible obesity hypoventilation syndrome. The patient is morbidly obese with some deconditioning and atelectasis likely contributing to her shortness of breath as on her CT imaging, she has what appears to be atelectatic regions of the lung likely secondary to her morbid obesity. She appears to have desaturations at night and is placed on 2L NC when sleeping. This is likely due to obstructive sleep apnea. She would benefit from formal sleep study in the future for evaluation of ESTEBAN. 3. History of pulmonary embolism. The patient has a remote history of pulmonary embolism in the past. She states she had positive lupus anticoagulant. However, she was on anticoagulation when she had her coagulation studies were completed. Her antinuclear antibody (JED) is negative. Her positive lupus anticoagulant was likely a false positive in the setting of factor Xa inhibitor. Her previous DVT was likely provoked due to immobility and morbid obesity. Current CTA did not show evidence of large PE however some respiratory motion artifact. No LE edema or calf tenderness. Code status: FULL CODE I, Jocelyn Collazo, have conducted an independent examination and history of patient and agree with the plan as detailed above by the resident and discussed during rounds. SHERRON
--- NOTE | 2019-10-20 14:52 | ECGEPIP ---
[facility] Test Date: 2019-10-20 Pat Name: JEREMY LEE Department: Room: [place] [address] Gender: Female Hand Packager: : 1970 Requested By: ANTONIA YEE Order Number: [id number] Reading MD: Jose Hankins Measurements Intervals [place] Rate: 88 P: 54 [place]: 193 QRS: -18 QRSD: 97 T: 28 QT: 315 QTc: 382 Interpretive Statements Normal sinus rhythm Delayed anterior R wave progression Nonspecific ST-T wave abnormalities No significant change when compared to prior tracing of 10/19/2019 Electronically Signed on 10-20-2019 14:51:57 EDT by Jose Hanikns
[2019-10-20] MEDS: ONDANSETRON 4MG/2ML VIAL IV PRN (15:28)
[2019-10-20 19:54] VITALS: O2SAT 93
[2019-10-20] MEDS: ENOXAPARIN 40MG/0.4ML SYRINGE (J1650 PER 10MG) SC SCH (20:39)
[2019-10-20 22:00] VITALS: BP 102/62
[2019-10-21] MEDS: IPRATROPIUM 0.5MG/ALBUTEROL 2.5MG INH SOL UD 3ML (DUONEB)(J7620) NEB SCH ×5 (01:17→19:39)
[2019-10-21 01:18] VITALS: O2SAT 92
[2019-10-21] MEDS: LEVOTHYROXINE 50MCG TABLET (0.05MG) PO SCH (05:31)
[2019-10-21 06:00] VITALS: BP 108/67
[2019-10-21 07:06] LABS: HEMOGLOBIN 14.7 g/dl (12.0-15.5); MEAN CORPUSCULAR HEMOGLOBIN 29.3 pg (27.0-33.0); MEAN CORPUSCULAR HGB CONC 33.4 g/dl (32.0-36.5); MEAN CORPUSCULAR VOLUME 87.6 fl (80.0-96.0); PLATELET COUNT, AUTOMATED 271 10^3/uL (150-450); RED BLOOD COUNT 5.02 10^6/uL (4.00-5.40); WHITE BLOOD COUNT 13.8 10^3/uL (4.0-10.0)
[2019-10-21 07:07] LABS: BLOOD UREA NITROGEN 29 MG/DL (7-18); CALCIUM LEVEL 9.1 MG/DL (8.5-10.1); CARBON DIOXIDE LEVEL 29 MEQ/L (21-32); CHLORIDE LEVEL 104 MEQ/L (98-107); CREATININE FOR GFR 0.84 MG/DL (0.55-1.30); GLOMERULAR FILTRATION RATE > 60.0 (>51); GLUCOSE, FASTING 97 MG/DL (70-100); MAGNESIUM LEVEL 2.3 MG/DL (1.8-2.4); POTASSIUM SERUM 3.9 MEQ/L (3.5-5.1); SODIUM LEVEL 139 MEQ/L (136-145)
[2019-10-21] MEDS: ONDANSETRON 4MG/2ML VIAL IV PRN (07:18)
[2019-10-21] MEDS: BUDESONIDE 180MCG INHALER (PULMICORT FLEXHALER) INH SCH ×2 (07:37→19:40)
[2019-10-21] MEDS: predniSONE 20 MG TAB PO SCH (08:49)
[2019-10-21] MEDS: PANTOPRAZOLE 40MG TAB (PROTONIX) PO SCH (08:49)
[2019-10-21 08:55] LABS: CLOSTRIDIUM DIFFICILE PCR NEGATIVE (NEGATIVE)
[2019-10-21] MEDS: lisinopriL 10 MG TAB PO SCH (09:00)
--- NOTE | 2019-10-21 12:06 | IPN ---
DATE OF SERVICE: 10/21/2019 SUBJECTIVE: Ms. Barahona was seen and examined this morning. Currently, there have been no adverse events reported overnight. She had worked with physical therapy yesterday. She had reportedly desaturated upon ambulation. Her oxygen sat dropped to 87-88% and she was placed on 2 liters nasal cannula. Currently, she has remained on nasal cannula with saturation of 96%. She states that overall her breathing has improved since yesterday. She currently has no other complaints. OBJECTIVE: Vital Signs: Temperature 95.5, pulse 63, respiratory rate 19, blood pressure 108/67, pulse oximetry 96% on 2 liters nasal cannula. General: The patient is awake, alert, and oriented. She does not appear in any acute distress. She is lying comfortably in bed. She has some conversational dyspnea. HEENT: Atraumatic. Normocephalic. Eyes nonicteric. Trachea is midline. Neck is alicea. Cardiovascular: Normal S1, S2. Regular rate and rhythm. No clicks, rubs or murmurs. Pulmonary: The patient continues to take shallow breaths. She has somewhat diminished breath sounds. There is no wheezes, rhonchi or rales noted. Symmetric chest expansion. Abdomen: Morbidly obese, soft, nondistended, nontender. There is no tenderness or guarding. Normoactive bowel sounds throughout. Extremities: No edema. Full and equal pulses in bilateral upper and lower extremities. Neurologic: No focal neurological deficits. Psychiatric: Mood and affect appear appropriate. LABORATORY STUDIES: Hematology: White blood cell count 13.8, hemoglobin 14.7, hematocrit 44, platelet count 271. Chemistries: Sodium 139, potassium 3.9, chloride 104, CO2 29, BUN 29, creatinine 0.84, fasting glucose 97, calcium 9.1, magnesium 2.3. Microbiology: C. Difficile negative. INPATIENT MEDICATIONS: 1. DuoNeb 3 mL required every 4 hours 2. Lisinopril 10 mg daily p.o. 3. Zofran 2 mg every 4 hours as needed IV. 4. Prednisone 40 mg daily by mouth. 5. Pulmicort 2 puffs required twice a day. 6. Synthroid 50 mcg q. A.m. 7. Lovenox 40 mg q.h.s. 8. Tylenol 650 mg q. 6 h. p.r.n. 9. Protonix 40 mg daily by mouth. ASSESSMENT AND PLAN: Ms. Barahona is a 49-year-old female who presented to [facility] emergency department with dyspnea, initially without hypoxia, felt to be secondary to viral illness and a component of reactive airway disease. She continues to be short of breath with intermittent cough. 1. Shortness of breath. The patient is currently on 2 liters nasal cannula. She appears to have desaturations upon ambulation. Started with physical therapy yesterday and had oxygen saturations of 88% with ambulation. Her shortness of breath is still felt to be secondary to some form of reactive airway disease. Her symptoms have been improving with nebulizer treatments and prednisone. She is on albuterol nebulizers and Pulmicort. Her shortness of breath and hypoxia is also likely multifactorial in addition to her morbid obesity and likely chronic alveolar hypoventilation from this as well. She is recommended to have pulmonary function testing after discharge. Patient also recommended to cont with incentive spirometry, has been able to have improved volumes with usage. 2. Morbid obesity with possible obstructive sleep apnea/obesity hypoventilation syndrome. As stated previously, the patient is morbidly obese, and it likely contributing to her shortness of breath and hypoxia. Additionally, she is deconditioned from such. Patient may also have a component of sleep disordered breathing contributing to her symptoms and mild daytime hypoxia. She would likely benefit from sleep study in the future 3. History of pulmonary embolism. The patient has a remote history of pulmonary embolism. She is hypoxic with exertion. She had a negative CTA for PE on admission. She has a reported positive lupus anticoagulant previously, although it is felt to be a false positive in setting of factor Xa inhibitor. At this point, pulmonary embolism remains low in differential. However, if the patient does not recover, will consider D-Dimer and ventilation perfusion scan. 4. Deep vein thrombosis prophylaxis. Patient is currently on Lovenox 40 mg 5. GI prophylaxis. The patient is currently on Protonix 40 mg by mouth. I, Jocelyn Collazo, have conducted an independent history and examination of the patient and agree with the plan as detailed above by the resident and discussed during rounds. SHERRON
--- NOTE | 2019-10-21 13:07 | IPNPDOC ---
Text Note Date of Service The patient was seen on 10/21/19. NOTE Subjective: Patient continues to have dyspnea on exertion. No any acute events overnight Objective: VITAL SIGNS: Please see below. GENERAL: awake, alert, NAD, obese female HEENT: NCAT, anicteric sclera, VANESSA NECK: supple, no JVD CARDIOVASCULAR EXAMINATION: NS1S2, regular rate/rhythm RESPIRATORY EXAMINATION: Diminished lung sounds bilaterally ABDOMINAL EXAMINATION: positive bowel sounds x 4, NT EXTREMITIES: no cyanosis, clubbing, edema SKIN: warm, no rashes. NEUROLOGICAL EXAMINATION: AAO x 3, no motor/sensory deficits PSYCHIATRIC EXAMINATION: calm, normal affect Assessment/Plan Patient is 49 years old female with past history of unprovoked DVT and PE around 10 years, lupus anticoagulant positive presented to the hospital with severe dyspnea. Patient stated that around 10 days ago she developed severe cough with dyspnea. PCP prescribed doxycycline and she took doxycycline for past 7 days. Her cough improved but no dyspnea. In emergency room patient was found to have on CTA: no pulmonary emboli, Mild diffuse bilateral interstitial infiltrate or edema. BNP is normal. CBC pertinent for mild eosinophilia, no leukocytosis. Of note patient stated that in June she had bilateral pneumonia treated with antibiotics. Patient denied fever, chills, nausea, vomiting, chest pain, palpitations diarrhea or dysuria. Problems (1) Dyspnea Most likely secondary to bronchospasm secondary to previous bilateral pneumonia superimposed with possible obstructive sleep apnea Patient Covid 19 negative Continue by mouth prednisone Continue inhalers Echo unremarkable Appreciate/agree with rn diabetes consult Sleep study in the outpatient settings PT/OT Morbidly obese Complicated care Patient will benefit from bariatric surgery Hypertension Continue to monitor Lisinopril 10 mg daily History of DVT and pulmonary embolism Patient stated that she has positive lupus anticoagulant, around 8 years ago she developed PE She was on the anticoagulation for 6 months There is possibility that patient has chronic thromboembolism. We will proceed with VQ scan if patient not improve. VS,Fishbone, I+O VS, Fishbone, I+O Laboratory Tests 10/21/19 06:00 Vital Signs Date Time Temp Pulse Resp B/P (MAP) Pulse Ox O2 Delivery O2 Flow Rate FiO2 10/21/19 09:00 100/60 10/21/19 06:00 95.5 63 19 96 Nasal Cannula 2.0 l I&O- Last 24 Hours up to 6 AM 10/21/19 05:59 Intake Total 720 ml Output Total 1 ml Balance 719 ml ANTONIA YEE DO Oct 21, 2019 13:07
[2019-10-21 14:00] VITALS: BP 121/82
[2019-10-21] MEDS: ACETAMINOPHEN TAB 650MG DOSE (2X325MG) PO PRN (15:57)
[2019-10-21] MEDS ORDERED: LOPERAMIDE 2 MG CAPLET PO PRN (16:15)
[2019-10-21 19:40] VITALS: O2SAT 94
[2019-10-21] MEDS: ENOXAPARIN 40MG/0.4ML SYRINGE (J1650 PER 10MG) SC SCH (21:12)
[2019-10-21 22:00] VITALS: BP 123/77
[2019-10-22] MEDS: IPRATROPIUM 0.5MG/ALBUTEROL 2.5MG INH SOL UD 3ML (DUONEB)(J7620) NEB SCH ×4 (00:19→10:45)
[2019-10-22 00:20] VITALS: O2SAT 96
[2019-10-22 03:58] VITALS: O2SAT 95
[2019-10-22 06:00] VITALS: BP 123/70
[2019-10-22] MEDS: LEVOTHYROXINE 50MCG TABLET (0.05MG) PO SCH (06:00)
[2019-10-22] MEDS ORDERED: CEPACOL LOZENGE PO PRN (06:00)
[2019-10-22 06:30] LABS: HEMATOCRIT 41.6 % (36.0-47.0); HEMOGLOBIN 13.7 g/dl (12.0-15.5); MEAN CORPUSCULAR HEMOGLOBIN 29.2 pg (27.0-33.0); MEAN CORPUSCULAR HGB CONC 32.9 g/dl (32.0-36.5); MEAN CORPUSCULAR VOLUME 88.7 fl (80.0-96.0); PLATELET COUNT, AUTOMATED 235 10^3/uL (150-450); RED BLOOD COUNT 4.69 10^6/uL (4.00-5.40); WHITE BLOOD COUNT 11.6 10^3/uL (4.0-10.0)
[2019-10-22 06:56] LABS: BLOOD UREA NITROGEN 22 MG/DL (7-18); CALCIUM LEVEL 8.3 MG/DL (8.5-10.1); CARBON DIOXIDE LEVEL 27 MEQ/L (21-32); CHLORIDE LEVEL 108 MEQ/L (98-107); CREATININE FOR GFR 0.66 MG/DL (0.55-1.30); GLOMERULAR FILTRATION RATE > 60.0 (>51); GLUCOSE, FASTING 87 MG/DL (70-100); MAGNESIUM LEVEL 2.2 MG/DL (1.8-2.4); POTASSIUM SERUM 4.1 MEQ/L (3.5-5.1); SODIUM LEVEL 140 MEQ/L (136-145)
[2019-10-22] MEDS: BUDESONIDE 180MCG INHALER (PULMICORT FLEXHALER) INH SCH (07:47)
[2019-10-22 08:24] VITALS: BP 147/82
[2019-10-22] MEDS: lisinopriL 10 MG TAB PO SCH (08:24)
[2019-10-22] MEDS: PANTOPRAZOLE 40MG TAB (PROTONIX) PO SCH (08:24)
[2019-10-22] MEDS: predniSONE 20 MG TAB PO SCH (08:24)
[2019-10-22] MEDS ORDERED: VENTAER INH (12:09)
[2019-10-22] MEDS ORDERED: PRED20TA PO (12:09)
[2019-10-22] MEDS ORDERED: ANTI2TAB16 PO (12:09)
[2019-10-22] MEDS ORDERED: PULM0.5S INH (12:09)
--- NOTE | 2019-10-22 13:13 | IPN ---
DATE OF SERVICE: 10/22/2019 SUBJECTIVE: Ms. Barahona was seen and examined this morning. She is currently on room air oxygenation. She has worked with physical therapy. Previously, was noted to have desaturations. Today with physical therapy, she was noted to stay between 90% to 92% oxygen (O2) saturations. She states that she still feels somewhat short of breath. However, this is improved. She states that the heaviness across her chest has improved, as well. The patient states that she is able to walk without getting as short of breath. OBJECTIVE: Vital Signs: Temperature 98.0, pulse 66, respiratory rate 18, blood pressure 123/70, pulse oximetry 98% on room air. General: The patient is awake, alert, and oriented. She does not appear in any acute distress. She is sitting up comfortably in chair. She is conversive. HEENT: Atraumatic. Normocephalic. Eyes anicteric. Trachea is midline. Neck is alicea. Cardiovascular: Normal S1, S2. Regular rate and rhythm. No clicks, rubs, or murmurs. Pulmonary: The patient has clear vesicular breath sounds bilaterally, somewhat continuous shallow breaths, although improved from previous. Symmetric chest expansion. No accessory muscle use. Abdominal: Morbidly obese, soft, nondistended, nontender. There is no tenderness or guarding. Normoactive bowel sounds. Extremities: No edema in bilateral upper or lower extremities. Full and equal pulses bilateral upper or lower extremities. Neurologic: No focal neurological deficits. Psychiatric: Mood and affect appear appropriate. LABORATORY DATA: Hematology: White blood cell 11.6, hemoglobin 13.7, hematocrit 41.6, platelet count 235. Chemistry: Sodium 140, potassium 4.1, chloride 108, carbon dioxide 27, BUN 22, creatinine 0.66, fasting glucose 87, calcium 8.3, magnesium 2.2. INPATIENT MEDICATIONS: - Cepacol lozenges every 6 hours as needed - Imodium 2 mg as needed for diarrhea - DuoNebs required every 4 hours - Lisinopril 10 mg daily - Zofran 2 mg every 4 hours as needed - prednisone 40 mg daily by mouth - Pulmicort two puffs required twice a day - Synthroid 50 mcg every morning - Lovenox 40 mg nightly - Tylenol 650 mg every 6 hours as needed - Protonix 40 mg daily by mouth ASSESSMENT AND PLAN: Ms. Barahona is a 49-year-old female who presented to [facility] Emergency Department with a complaint of shortness of breath and was found to have hypoxia with exertion likely secondary to reactive airway disease from a postviral illness. 1. Shortness of breath. The patient was previously on 2 liters of nasal cannula. Currently being weaned down to room air. She walked today with physical therapy and was noted to hold her saturations between 90% and 92%. She states that her shortness of breath has improved somewhat. Her shortness of breath appears to be multifactorial, likely reactive airway disease, possibly due to postviral illness. Additionally, the patient has morbid obesity and probably chronic alveolar hypoventilation from such. She has been started on Pulmicort, and she should continue this once she is discharged. Additionally, the patient has been placed on oral prednisone. She should continue this for a total of 5 days. She has received three doses already, so she has two more doses to complete her treatment. Additionally, the patient is to continue DuoNebs at home. She should followup with pulmonary medicine outpatient to receive formal pulmonary function testing for evaluation of asthma. 2. Morbid obesity with possible ESTEBAN/obesity hypoventilation syndrome. Patient is morbidly obese. This likely contributes to her shortness of breath and hypoxia. She likely has chronic alveolar hypoventilation from her obesity. Additionally, she would benefit from a sleep study to evaluate for obstructive sleep apnea. 3. History of pulmonary embolism/hypercoagulability. The patient has a history of pulmonary embolism in the past. She has been told she has a positive lupus anticoagulant. However, this is felt to be a false positive. Her CTA on this admission did not show evidence of acute PE. She should followup for confirmatory testing when she sees pulmonary outpatient. 4. Deep venous thrombosis (DVT) prophylaxis. The patient is currently on Lovenox 40 mg. 5. Gastrointestinal (GI) prophylaxis. The patient is currently on Protonix by mouth daily. DISPOSITION: The patient from a pulmonary standpoint is okay for discharge home with followup with pulmonary medicine for evaluation of asthma and possible sleep apnea in 2-3 weeks. Jocelyn Talbert, have conducted an independent history and examination of the patient and agree with the plan as detailed above by the resident and discussed during rounds. SHERRON
[2019-10-22 14:00] VITALS: BP 117/73
--- NOTE | 2019-10-22 20:59 | DS.PDOC ---
Discharge Summary General Date of Admission Oct 19, 2019 at 16:04 Date of Discharge 10/22/19 Discharge Summary PROCEDURES PERFORMED DURING STAY: [None]. ADMITTING DIAGNOSES: Dyspnea Morbidly obese Hypertension History of DVT and pulmonary embolism DISCHARGE DIAGNOSES: Dyspnea Morbidly obese Hypertension History of DVT and pulmonary embolism COMPLICATIONS/CHIEF COMPLAINT: Dyspnea. HISTORY OF PRESENT ILLNESS:Patient is 49 years old female with past history of unprovoked DVT and PE around 10 years, lupus anticoagulant positive presented to the hospital with severe dyspnea. Patient stated that around 10 days ago she developed severe cough with dyspnea. PCP prescribed doxycycline and she took doxycycline for past 7 days. Her cough improved but no dyspnea. In emergency room patient was found to have on CTA: no pulmonary emboli, Mild diffuse bilateral interstitial infiltrate or edema. BNP is normal. CBC pertinent for mild eosinophilia, no leukocytosis. Of note patient stated that in June she had bilateral pneumonia treated with antibiotics. Patient denied fever, chills, nausea, vomiting, chest pain, palpitations diarrhea or dysuria. HOSPITAL COURSE: (1) Dyspnea Most likely secondary to bronchospasm secondary to previous bilateral pneumonia superimposed with possible obstructive sleep apnea Patient Covid 19 negative Continue by mouth prednisone Continue inhalers Echo unremarkable Sleep study in the outpatient settings PT/OT Morbidly obese Complicated care Patient will benefit from bariatric surgery Hypertension Continue to monitor Lisinopril 10 mg daily History of DVT and pulmonary embolism Patient stated that she has positive lupus anticoagulant, around 8 years ago she developed PE She was on the anticoagulation for 6 months DISCHARGE MEDICATIONS: Please see below. ALLERGIES: Please see below. PHYSICAL EXAMINATION ON DISCHARGE: VITAL SIGNS: Please see below. GENERAL: awake, alert, NAD, obese female HEENT: NCAT, anicteric sclera, VANESSA NECK: supple, no JVD CARDIOVASCULAR EXAMINATION: NS1S2, regular rate/rhythm RESPIRATORY EXAMINATION: Diminished lung sounds bilaterally ABDOMINAL EXAMINATION: positive bowel sounds x 4, NT EXTREMITIES: no cyanosis, clubbing, edema SKIN: warm, no rashes. NEUROLOGICAL EXAMINATION: AAO x 3, no motor/sensory deficits PSYCHIATRIC EXAMINATION: calm, normal affect LABORATORY DATA: Please see below. IMAGING: CT ANGIOGRAM CHEST: TECHNIQUE: Axial contrast enhanced images from the thoracic inlet to the upper abdomen using 100 mL Isovue 370 intravenous contrast material with multiplanar reformations. COMPARISON: 04/22/2015 The lungs show mild diffuse increased interstitial markings compatible with mild diffuse interstitial infiltrates or edema. There is mild cardiomegaly. There is no pleural or pericardial effusion. There is no mediastinal, hilar or chest wall lymphadenopathy. Thoracic aorta is normal in caliber with no dissection or aneurysm. There is no evidence of pulmonary embolism. The patient has had a prior cholecystectomy. There are degenerative changes of the spine. IMPRESSION: No CT evidence of pulmonary embolism or aortic dissection. Mild diffuse bilateral interstitial infiltrate or edema. Mild cardiomegaly. PROGNOSIS: Fair ACTIVITY: [As tolerated]. DIET: Cardiac DISPOSITION: Home, Self-Care. 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 TIME SPENT ON DISCHARGE: Greater than 20 minutes. Vital Signs/I&Os Vital Signs Date Time Temp Pulse Resp B/P (MAP) Pulse Ox O2 Delivery O2 Flow Rate FiO2 10/22/19 14:00 98.6 88 18 117/73 (88) 94 Nasal Cannula 10/22/19 06:00 2.0 I&O- Last 24 Hours up to 6 AM 10/22/19 06:00 Intake Total 1830 ml Output Total 0 ml Balance 1830 ml Laboratory Data Labs 24H Laboratory Tests 2 10/22/19 06:10: Nucleated Red Blood Cells % (auto) 0.0, Anion Gap 5L, Glomerular Filtration Rate > 60.0, Calcium Level 8.3L, Magnesium Level 2.2 CBC/BMP Laboratory Tests 10/22/19 06:10 Microbiology Microbiology 10/20/19 Blood Culture - Preliminary, Resulted No Growth after 48 hours. All Specime... 10/19/19 Respiratory Panel (PCR) - Final, Complete Discharge Medications Scheduled Levothyroxine Sodium (Levothyroxine Sodium) 50 Mcg Tablet, 50 MCG PO QAM, ( Reported) Prednisone (Prednisone) 20 Mg Tablet, 40 MG PO DAILY Scheduled PRN Albuterol Sulfate (Ventolin Hfa) 18 Gm Hfa.aer.ad, 2 PUFF INH Q4-6HP PRN for wheezing Budesonide (Pulmicort) 0.5 Mg/2 Ml Ampul.neb, 0.5 MG INH DAILYPRN PRN for shortness of breath Loperamide HCl (Anti-Diarrheal) 2 Mg Tablet, 2 MG PO ASDIRECTED PRN for DIARRHEA Allergies Coded Allergies: No Known Allergies (Verified , 08/18/09) DROZHZHIN,ANTONIA DO Oct 22, 2019 20:59
== END 2019-10-22 15:40 | disposition home or self-care (01) | DRG 144 ==
LOC: M ED 10:52 → M ED INP 16:04 → M MSPAV 17:07
PROVIDERS: ADMIT Internal Medicine; ATTEND Internal Medicine
DX: J98.01 Acute bronchospasm (principal); E66.2 Morbid (severe) obesity with alveolar hypoventilation; I10 Essential (primary) hypertension; Z68.42 Body mass index [BMI] 45.0-49.9, adult; G47.33 Obstructive sleep apnea (adult) (pediatric); Z86.718 Personal history of other venous thrombosis and embolism; Z86.711 Personal history of pulmonary embolism; E03.9 Hypothyroidism, unspecified; Z79.899 Other long term (current) drug therapy

== ENCOUNTER → 2020-01-22 | Outpatient (CLI) | payer BC ==
[~2020-01-22] MED LIST changes: +ANTI2TAB16 PO; +DOXY100T PO; +LEVO50TA5 PO; +PRED20TA PO; +PULM0.5S INH; +VENTAER INH
--- NOTE | 2020-03-08 07:18 | SLEEPHOME ---
DATE: 01/22/2020 ORDERED BY: Dr. Carrizales Diagnostic home sleep testing was performed due to concern for the obstructive sleep apnea syndrome. For testing, a nocturnal T3 respiratory monitoring device was used. Continuous record was made of pulse, oxygen saturation, air flow, chest and abdominal strain, and body position. There was 9 hours and 59 minutes of data reviewed. There was 9 hours and 30 minutes marked as time in bed. During the interval marked time in bed, there were 147 respiratory events identified of 10 seconds in duration or greater for a respiratory event index of 15.5. The events were primarily obstructive though 12 mixed and central apneas were seen. Baseline pulse rate 82 beats per minute. Pulse rate ranged 57-107. Baseline saturation was 89%. Saturations fell below 68%. Testing was performed in both the supine and non-supine positions. IMPRESSION: Abnormal home sleep testing with repetitive respiratory events and oxygen desaturations to 68% with a respiratory event index of 15.5 is consistent with the obstructive sleep apnea syndrome. RECOMMENDATION: The patient should be encouraged to undergo formal sleep evaluation. /tawnya [facility]
== END ==
LOC: M SLEEP HO 12:05 → M LAB 12:05
PROVIDERS: ATTEND Internal Medicine Pulmonary Disease
DX: G47.30 Sleep apnea, unspecified (principal)

== ENCOUNTER → 2020-04-27 | Outpatient (REF) | payer BC ==
[2020-04-27 14:03] LABS: BASO # 0.1 10^3/uL (0.0-0.2); EOS # 0.4 10^3/uL (0.0-0.5); EOS % 4.2 % (0.0-3.0); HEMATOCRIT 46.6 % (36.0-47.0); HEMOGLOBIN 14.8 g/dl (12.0-15.5); LYMPH # 2.1 10^3/uL (1.5-5.0); LYMPH % 25.2 % (24.0-44.0); MEAN CORPUSCULAR HEMOGLOBIN 27.6 pg (27.0-33.0); MEAN CORPUSCULAR HGB CONC 31.8 g/dl (32.0-36.5); MEAN CORPUSCULAR VOLUME 86.9 fl (80.0-96.0); MONO # 0.6 10^3/uL (0.0-0.8); MONO % 7.4 % (0.0-5.0); NEUTROPHILS # 5.1 10^3/uL (1.5-8.5); NEUTROPHILS % 61.8 % (36.0-66.0); PLATELET COUNT, AUTOMATED 258 10^3/uL (150-450); RED BLOOD COUNT 5.36 10^6/uL (4.00-5.40); WHITE BLOOD COUNT 8.3 10^3/uL (4.0-10.0)
[2020-04-27 15:08] LABS: ALBUMIN 3.9 GM/DL (3.2-5.2); ALT/SGPT 33 U/L (12-78); BILIRUBIN,TOTAL 0.5 MG/DL (0.2-1.0); BLOOD UREA NITROGEN 12 MG/DL (7-18); CALCIUM LEVEL 9.2 MG/DL (8.5-10.1); CARBON DIOXIDE LEVEL 27 MEQ/L (21-32); CHLORIDE LEVEL 107 MEQ/L (98-107); CHOLESTEROL LEVEL 244 MG/DL (<200); CHOLESTEROL RISK RATIO 4.979 (<5); CREATININE FOR GFR 0.59 MG/DL (0.55-1.30); GLOMERULAR FILTRATION RATE > 60.0 (>51); GLUCOSE, FASTING 102 MG/DL (70-100); HDL CHOLESTEROL 49 MG/DL (>40); LDL CHOLESTEROL 165 MG/DL (<100); NON-HDL-C 195 MG/DL; POTASSIUM SERUM 4.3 MEQ/L (3.5-5.1); SODIUM LEVEL 140 MEQ/L (136-145); TOTAL 25(OH) VITAMIN D 37.6 NG/ML (30.0-100.0); TOTAL PROTEIN 7.2 GM/DL (6.4-8.2); TRIGLYCERIDES LEVEL 151 MG/DL (<150)
== END ==
LOC: M SFHCPLAZ 09:06
PROVIDERS: ATTEND Physician Assistant
DX: L50.9 Urticaria, unspecified (principal); E03.9 Hypothyroidism, unspecified; E78.00 Pure hypercholesterolemia, unspecified; R79.89 Other specified abnormal findings of blood chemistry

== ENCOUNTER → 2020-08-04 | Outpatient (CLI) | payer BC ==
--- NOTE | 2020-08-04 13:14 | REPPI ---
INDICATION: FALL WITH PAIN. COMPARISON: None. TECHNIQUE: Five views. FINDINGS: Five views of the right knee demonstrate medial compartment osteoarthritic spurring. There is mild patellar spurring. No fracture or subluxation is seen.. No evidence of joint effusion.. No opaque foreign body noted. IMPRESSION: Osteoarthritic changes. No fracture or other acute abnormality seen.. <Electronically signed by Gerson Lawrence > 08/04/20 [id number]
== END ==
LOC: M PLAIMG 11:42
PROVIDERS: ATTEND Physician Assistant
DX: M17.11 Unilateral primary osteoarthritis, right knee (principal)

== ENCOUNTER → 2020-08-26 | Outpatient (CLI) | payer BC ==
--- NOTE | 2020-08-26 10:41 | REPPI ---
INDICATION: M25.562 ACUTE PAIN OF LEFT KNEE COMPARISON: None. TECHNIQUE: AP, lateral, bilateral oblique and sunrise views. FINDINGS: Early moderate tricompartmental osteoarthritic degenerative changes include subtle osteophyte formation primarily noted along the femoral condyles, medial tibial plateau, and superior margin of the patella. Minimal subchondral sclerosis and patellofemoral joint space narrowing noted. [place] view also demonstrates sclerosis and fraying along the anterior patellar margin. No acute fracture or dislocation. No definite effusion. IMPRESSION: Mild/early moderate tricompartmental osteoarthritic changes. <Electronically signed by Crow Xie > 08/26/20 [id number]
== END ==
LOC: M PLAIMG 09:58
PROVIDERS: ATTEND Physician Assistant
DX: M25.562 Pain in left knee (principal)

== ENCOUNTER → 2020-09-22 | Outpatient (CLI) | payer BC ==
--- NOTE | 2020-09-22 17:05 | REP ---
INDICATION: PAIN IN LATONIA KNEES. COMPARISON: Radiographs 08/26/2020. TECHNIQUE: Multiple sequences obtained in the axial, coronal and sagittal planes. FINDINGS: Menisci: Intact, no tear. Cruciate ligaments: Intact. Collateral ligaments: Intact. Extensor mechanism/patellar retinacula: Intact. Cartilage: There is [id number] global chondromalacia. There is mild fissuring of the cartilage at the weight-bearing surface of the lateral femoral condyle. Bone marrow: There is mild subchondral marrow edema of the posterior medial femoral condyle. Joint fluid: There is moderate joint effusion. Popliteal region: No cyst. There is mild spurring of the femoral condyles. IMPRESSION: [id number] global chondromalacia with mild fissuring of the cartilage of the weight-bearing surface of the lateral femoral condyle. Mild subchondral marrow edema posterior medial femoral condyle. Moderate joint effusion. <Electronically signed by Binh Cabezas > 09/22/20 [id number]
--- NOTE | 2020-09-22 17:10 | REP ---
INDICATION: PAIN IN [place]ON[place] KNEES. COMPARISON: Radiographs 08/04/2020. TECHNIQUE: Multiple sequences obtained in the axial, coronal and sagittal planes. FINDINGS: Menisci: Intact, no tear. Cruciate ligaments: Intact. Collateral ligaments: Intact. Extensor mechanism/patellar retinacula: Intact. Cartilage: There is mild to moderate global chondromalacia, with no osteochondral defect. Bone marrow: Normal signal, no edema or occult fracture. Joint fluid: There is a moderate joint effusion. Popliteal region: No cyst. IMPRESSION: No evidence of internal derangement. [id number] global chondromalacia. Moderate joint effusion. <Electronically signed by Binh Cabezas > 09/22/20 [id number]
== END ==
LOC: M PLARAD 14:01
PROVIDERS: ATTEND Physician Assistant
DX: M25.562 Pain in left knee (principal); M25.561 Pain in right knee; M94.262 Chondromalacia, left knee; M94.261 Chondromalacia, right knee

== ENCOUNTER → 2021-03-09 | Outpatient (CLI) | payer BC ==
--- NOTE | 2021-03-10 19:15 | REP ---
INDICATION: ACUTE RIGHT SIDED THORACIC BACK PAIN COMPARISON: None. TECHNIQUE: AP, lateral, and swimmers views. FINDINGS: Mild generalized osteopenia and moderate degenerative changes include endplate sclerosis with minimal disc space narrowing and marginal bridging osteophytes. Alignment and kyphosis maintained. No acute fracture/compression injury or subluxation. IMPRESSION: Osteopenia and mild/moderate multilevel degenerative changes. <Electronically signed by Crow Xie > 03/10/21 [id number]
== END ==
LOC: M WUC 15:36
PROVIDERS: ATTEND Physician Assistant
DX: M85.88 Other specified disorders of bone density and structure, other site (principal); M43.04 Spondylolysis, thoracic region

== ENCOUNTER → 2021-03-16 | Outpatient (CLI) | payer BC ==
[2021-03-16 15:25] LABS: BLOOD UREA NITROGEN 12 MG/DL (7-18); CALCIUM LEVEL 9.2 MG/DL (8.5-10.1); CARBON DIOXIDE LEVEL 27 MEQ/L (21-32); CHLORIDE LEVEL 107 MEQ/L (98-107); CREATININE FOR GFR 0.57 MG/DL (0.55-1.30); FREE T4 0.94 NG/DL (0.76-1.46); GLOMERULAR FILTRATION RATE > 60.0 (>51); GLUCOSE, FASTING 103 MG/DL (70-100); MAGNESIUM LEVEL 2.5 MG/DL (1.8-2.4); POTASSIUM SERUM 4.9 MEQ/L (3.5-5.1); SODIUM LEVEL 142 MEQ/L (136-145)
== END ==
LOC: M PLALAB 08:36
PROVIDERS: ATTEND Physician Assistant
DX: R25.2 Cramp and spasm (principal); E03.9 Hypothyroidism, unspecified

== ENCOUNTER 2021-04-23 18:56 | Emergency (ER) | payer BC ==
[~2021-04-23] VITALS: Ht 149.9 cm; Wt 111.4 kg
[2021-04-23 18:57] VITALS: BP 151/75
--- OUTSIDE RECORDS SUMMARY | 2021-04-23 19:02 | CCD | Continuity of Care Document ---
Author Author Susanne CARRIZALES MD Organization Unknown Address [address] [facility] [address] [place] [address] Phone [phone] Care Team Providers Care Channel Man Name Role Phone Mechelle Mcduffie-Choco AUTM [phone] AUTM Unavailable Margarita Bryant-C AUTM [phone] Problems Description No Information Available Social History Type Date Description Comments Sex Unknown Tobacco Use Start: Unknown Patient has never smoked Smoking Status Reviewed: 02/03/21 Patient has never smoked Allergies, Adverse Reactions, Alerts Description No Known Drug Allergies Medications Active Medications SIG Qnty Indications Ordering Provide r Date Autopap Device 4-20cm lcw Kwesi Carrizales MD 02/24/2020 Breo Ellipta 200-25mcg/Inh Aerosol 1 puff every day 60units Kwesi Carrizales MD 12/08/2019 Ventolin HFA 108(90Base) mcg/Act A erosol 2 puffs qid/prn 18gm Kwesi Carrizales MD 11/13/2017 Levothyroxine Sodium 75mcg Tablets 1 by mouth every day Unknown Albuterol Sulfate (2 .5mg/3ML) 0.083% Nebulizer 1 vial four times a day as needed Unknown Immunizations Description No Information Available Vital Signs Date Vital Result Comment 02/03/2021 8:53am BP Systolic 130 mmHg BP Diastolic 80 mmHg Heart Rate 80 /min O2 % BldC Oximetry 96 % Room Air Height 60 inches 5'0" Weight 254.00 lb BMI (Body Mass Index) 49.6 kg/m2 [place] Body Weight 100 lb Weight 115.214 kg BSA (Body Surface Area) 2.07 m2 07/27/2020 11:05am BP Systolic 126 mmHg BP Diastolic 80 mmHg Heart Rate 76 /min O2 % BldC Oximetry 97 % Room Air Height 60 inches 5'0" Weight 252.00 lb BMI (Body Mass Index) 49.2 kg/m2 [place] Body Weight 100 lb Weight 114.307 kg BSA (Body Surface Area) 2.06 m2 Results Description No Information Available Procedures Date Code Description Status 02/03/2021 06378 Office/Outpatient Established Lo w MDM 20-29 Min Completed 02/03/2021 48750 Spirometry Completed Medical Devices Description No Information Available Encounters Type Date Location Provider Dx Diagnosis Office Visit 02/03/2021 9:00a [facility] Pulmonary/Thoracic Lawrenc rosita Carrizales MD J45.40 Moderate persistent asthma, uncomplicate d G47.33 Obstructive sleep apnea (tiesha lt) (pediatric) Assessments Date Code Description Provider 02/03/2021 J45.40 Moderate persistent asthma, unco mplicated Kwesi Carrizales MD 02/03/2021 G47.33 Obstructive sleep apnea (adult) (pediatric) Kwesi Carrizales MD Plan of Treatment 02/03/2021 - Kwesi Carrizales MD* J45.40 Moderate persistent asthma, uncomplicated * G47.33 Obstructive sleep apnea (adult) (pediatric) * * New Labs:* FVL/[place], Ordered: 02/03/21 * Comments:* ~ At this point, she really needs to be more compliant with her Breo, and we discussed that at length. She assures me she will do better. She is up to date on her Ventolin, and I have asked her to make sure she carries it with her, especially, when she goes back and forth to [place]. ~ She assures me she will do better wearing her CPAP. If she needs to stay overnight, she should take it with her.~ Otherwise, I have asked her to return here in 6 months with spirometry, oximetry and flow volume loop for her asthma. She keeps all of her COVID and immunizations up to date, [place]. * Follow up:* Follow up in six months with spirometry, oximetry and flow volume loop. Functional Status Description No Information Available Mental Status Description No Information Available Referrals Description No Information Available
--- OUTSIDE RECORDS SUMMARY | 2021-04-23 19:02 | CCD ---
Author Author [facility] Organization [facility] Address Unknown Phone Unavailable Care Team Providers Care Conference Planner Name Role Phone Mechelle Mcduffie Unavailable PROBLEMS Type Condition ICD9-CM Code [id number] Code Onset Dates Condition S tatus W/U Status Risk SNOMED Code Notes Problem History of pulmonary embolism Z86.711 Active confir med 730500204 Problem Elevated cholesterol E78.00 Active confirmed 06052816 Problem Insomnia, unspecified type G47.00 Active confirmed 038683115 Problem Other depression F32.89 Active confirmed 354 13428 Problem BMI 45.0-49.9, adult Z68.42 Active confirmed 149639644 Problem Vitamin D deficiency E55.9 Active confirmed 90717200 Problem Hypothyroidism, unspecified type E03.9 Active conf irmed 21704749 ALLERGIES No Known Allergies ENCOUNTERS from 1970 to 2021-03-07 Encounter Location Date Provider Diagnosis [address] [phone] [place] [address] Jan, Mechelle Mcduffie Insomnia, unspecified type G 47.00 and Acute right-sided thoracic back pain M54.6 IMMUNIZATIONS Vaccine Route Administration Date Status Influenza 18 yrs & older Flublok IM Intramuscular Apr 19, 2020 Administered SOCIAL HISTORY Tobacco Use: Social History Observation Description Date Details (start date - stop date) Never Smoker Sex Assigned At : Social History Observation Description Sex Assigned At Unknown Education: Question Answer Notes Level of Education: High School Audit Question Answer Notes Total Score: 1 Interpretation: Alcohol Education Language: Question Answer Notes Languages spoken: Kittitian Sexual Hx: Question Answer Notes Had sex in the last 12 months (vaginal, oral, or anal)? Yes Have you ever had an STD? No with Men only Use protection? No Drug and Alcohol Question Answer Notes Total Score: 0 Interpretation: No problems reported Tobacco Use: Question Answer Notes Are you a: never smoker REASON FOR REFERRAL No Information VITAL SIGNS Weight 252.4 lbs Jan, Weight-kg 114.49 kg Jan, Height 60 1/2 in Jan, BMI 48.48 kg/m2 Jan, Heart Rate 97 /min Jan, Respiratory Rate 18 /min Jan, Temperature 97.4 degrees Fahrenheit Jan, Oximetry 100 Jan, Blood pressure systolic 132 mm Hg Jan, Blood pressure diastolic 84 mm Hg Jan, MEDICATIONS Medication SIG (Take, Route, Frequency, Duration) Notes Start Da te End Date Status predniSONE 5 MG 2 tablets Orally Once a day for 21 day(s) October, Not-Taking Breo Ellipta 200-25 MCG/INH INHALE ONE PUFF BY MOUTH E DAY Inhalation for 30 Active Diclofenac Sodium 75 MG 1 tablet with food or milk O rally Twice a day as needed for 30 days Aug, Not-Taking Levothyroxine Sodium 50 MCG 1 tablet in the morning on an empty stomach Orally Once a day for 30 day(s) Aug, Active Budesonide 1 MG/2ML 2 ml as needed Inhalation Once a day Not-Taking Albuterol Sulfate HFA 108 (90 Base) MCG/ACT 1 puff as needed Inhalation every 4- 6 hrs Active hydrOXYzine HCl 10 MG 1-2 tablets as needed Orally before bed fo r 30 Days Jan, Active predniSONE 20 MG 2 tablets Orally Once a day x 5 days Not-Taking Loperamide HCl 2 MG 1 cap Orally take one after each loose stool, MDD 4 Not-Taking predniSONE 10 MG 3 tablets Orally Once a day for 5 day(s) Jan, Active Tylenol Active Elidel 1 % apply thin layer to affected areas on back and extremities Externally Twice a day for 7 day(s) Mar, Not-Gumaro ing PROCEDURES from 1969 to 2021-03-07 Procedure Date Ordered Result Body Site Medication: Toradol 30mg/1mL IM (Ketorolac) 2021-02-10 N/A RESULTS No Results REASON FOR VISIT back pain MEDICAL (GENERAL) HISTORY Type Description Date Medical History DVT/PE Medical History Dysphagia- sleeps with head of the bed u p Medical History Obesity Medical History History of abnormal lupus anticoagulant Surgical History x2 Surgical History gall bladder removal Surgical History lt heel- debridement Hospitalization History Dvt/PE 08/04 Hospitalization History back issues 02/01 Hospitalization History SOB 10/2019 Goals Section No Information Health Concerns No Information MEDICAL EQUIPMENT No Information MENTAL STATUS No Information FUNCTIONAL STATUS No Information ASSESSMENTS Encounter Date Diagnosis Assessment Notes Treatment Notes Treatm ent Clinical Notes Jan, Insomnia, unspecified type (ICD-10 - G47.00) Instructions given to patient on medication use along with a discussion concerning common reactions/side effects to medication. Patient verbalized understanding and will call clinic with any further questions or concerns. Jan, Acute right-sided thoracic back pain (ICD-10 - M 54.6) Toradol injection today and will send a short prednisone burst for patient to start as well she should continue to to alternate heat/ice if she develops saddle anesthesia or loss of bladder or bowel control she should go to the ER immediately. if her pain continues over 2 weeks she should RTO for re-evaluation Jan, Other Total time spen t with the patient on the day of the encounter: 20 minutes PLAN OF TREATMENT Medication Medication Name Sig Start Date Stop Date hydrOXYzine HCl 10 MG 1-2 tablets as needed Orally before be d for 30 Days Jan, predniSONE 10 MG 3 tablets Orally Once a day for 5 day(s) Jan Treatment Notes Assessment Notes Clinical Notes Insomnia, unspecified type Instructions given to patient on medication use along with a discussion concerning common reactions/side effects to medication. Patient verbalized understanding and will call clinic with any further questions or concerns. Acute right-sided thoracic back pain Tor adol injection today and will send a short prednisone burst for patient to start as wellshe should continue to to alternate heat/iceif she develops saddle anesthesia or loss of bladder or bowel control she should go to the ER immediately. if her pain continues over 2 weeks she should RTO for re-evaluation Future Test Test Name Order Date PLZ SPINE THORACIC AP/LAT [id number] Next Appt Details prn Reason: Insurance Providers Payer Name Payer Address Payer Phone Insured Name Patient Relati onship to Insured Coverage Start Date Coverage End Date [employer] PPO [phone] [id number] JEREMY LEE self
--- OUTSIDE RECORDS SUMMARY | 2021-04-23 19:02 | CCD | Continuity of Care Document ---
Author Author Susanne CARRIZALES MD Organization Unknown Address [address] [facility] [address] [place] [address] Phone [phone] Care Team Providers Care Aesthetics Instructor Name Role Phone Mechelle Mcduffie-Choco AUTM [phone] AUTM Unavailable Margarita Bryant-C AUTM [phone] Problems Description No Information Available Social History [...] lb BMI (Body Mass Index) 49.6 kg/m2 [place] Body Weight 100 lb Weight 115.214 kg BSA (Body Surface Area) 2.07 m2 07/27/2020 11:05am BP Systolic 126 mmHg BP Diastolic 80 mmHg Heart Rate 76 /min O2 % BldC Oximetry 97 % Room Air Height 60 inches 5'0" Weight 252.00 lb BMI (Body Mass Index) 49.2 kg/m2 [place] Body Weight 100 lb Weight 114.307 kg BSA (Body Surface Area) 2.06 m2 Results Description No Information Available Procedures Description No Information Available Medical Devices Description No Information Available Encounters Description No Information Available Assessments Date Code Description Provider 02/03/2021 J45.40 Moderate persistent asthma, unco mplicated Kwesi Carrizales MD 02/03/2021 G47.33 Obstructive sleep apnea (adult) (pediatric) Kwesi Carrizales MD Plan of Treatment 02/03/2021 - Kwesi Carrizales MD* J45.40 Moderate persistent asthma, uncomplicated * G47.33 Obstructive sleep apnea (adult) (pediatric) * * New Labs:* FVL/[place], Ordered: 02/03/21 * Follow up:* Follow up in six months with spirometry, oximetry and flow volume loop. Functional Status Description No Information Available Mental Status Description No Information Available Referrals Description No Information Available
--- OUTSIDE RECORDS SUMMARY | 2021-04-23 19:02 | CCD | Continuity of Care Document ---
Author Author Susanne CARRIZALES MD Organization Unknown Address [address] [facility] [address] [place] [address] Phone [phone] Care Team Providers Care Golf Course Designer Name Role Phone Mechelle Mcduffie-Choco AUTM [phone] AUTM Unavailable Margarita Bryant-C AUTM [phone] Problems Description No Information Available Social History [...] lb BMI (Body Mass Index) 49.6 kg/m2 [place] Body Weight 100 lb Weight 115.214 kg BSA (Body Surface Area) 2.07 m2 07/27/2020 11:05am BP Systolic 126 mmHg BP Diastolic 80 mmHg Heart Rate 76 /min O2 % BldC Oximetry 97 % Room Air Height 60 inches 5'0" Weight 252.00 lb BMI (Body Mass Index) 49.2 kg/m2 [place] Body Weight 100 lb Weight 114.307 kg BSA (Body Surface Area) 2.06 m2 Results Description No Information Available Procedures Date Code Description Status 02/03/2021 34067 Office/Outpatient Established Lo w MDM 20-29 Min Completed 02/03/2021 44616 Spirometry Completed Medical Devices Description No Information Available Encounters Type Date Location Provider Dx Diagnosis Office Visit 02/03/2021 9:00a [facility] Pulmonary/Thoracic Lawrenc rosita Carirzales MD J45.40 Moderate persistent asthma, uncomplicate d G47.33 Obstructive sleep apnea (tiesha lt) (pediatric) Assessments Date Code Description Provider 02/03/2021 J45.40 Moderate persistent asthma, unco mplicated Kwesi Carrizales MD 02/03/2021 G47.33 Obstructive sleep apnea (adult) (pediatric) Kwesi Carrizales MD Plan of Treatment 02/03/2021 - Kwesi Carrizales MD* J45.40 Moderate persistent asthma, uncomplicated * G47.33 Obstructive sleep apnea (adult) (pediatric) * * New Labs:* FVL/[place], Ordered: 02/03/21 * Comments:* ~ At this point, she really needs to be more compliant with her Breo, and we discussed that at length. She assures me she will do better. She is up to date on her Ventolin, and I have asked her to make sure she carries it with her, especially, when she goes back and forth to [place]. ~ She assures me she will do [...]
--- OUTSIDE RECORDS SUMMARY | 2021-04-23 19:02 | CCD ---
Author Author [facility] Organization [facility] Address Unknown Phone Unavailable Care Team Providers Care Interdisciplinary Professor Name Role Phone Feola, T Maggie PA Unavailable Unavailable Feola, T Maggie PA Unavailable Unavailable Feola, T Maggie PA Unavailable Unavailable Feola, T Maggie PA Unavailable Unavailable Feola, T Maggie PA Unavailable Unavailable Feola, T Maggie PA Unavailable Unavailable Feola, T Maggie PA Unavailable Unavailable Feola, T Maggie PA Unavailable Unavailable Feola, T Maggie PA Unavailable Unavailable Feola, T Maggie PA Unavailable Unavailable Feola, T Maggie PA Unavailable Unavailable Feola, T Maggie PA Unavailable Unavailable Feola, T Maggie PA Unavailable Unavailable Feola, T Maggie PA Unavailable Unavailable Feola, T Maggie PA Unavailable Unavailable Feola, T Maggie PA Unavailable Unavailable Feola, T Maggie PA Unavailable Unavailable Feola, T Maggie PA Unavailable Unavailable Feola, T Maggie PA Unavailable Unavailable Feola, T Maggie PA Unavailable Unavailable Feola, T Maggie PA Unavailable Unavailable Feola, T Maggie PA Unavailable Unavailable Feola, T Maggie PA Unavailable Unavailable Feola, T Maggie PA Unavailable Unavailable Feola, T Maggie PA Unavailable Unavailable Feola, T Maggie PA Unavailable Unavailable Feola, T Maggie PA Unavailable Unavailable Feola, T Maggie PA Unavailable Unavailable Feola, T Maggie PA Unavailable Unavailable Feola, T Maggie PA Unavailable Unavailable Feola, T Maggie PA Unavailable Unavailable Feola, T Maggie PA Unavailable Unavailable Feola, T Maggie PA Unavailable Unavailable Feola, T Maggie PA Unavailable Unavailable Feola, T Maggie PA Unavailable Unavailable Feola, T Maggie PA Unavailable Unavailable Feola, T Maggie PA Unavailable Unavailable Feola, T Maggie PA Unavailable Unavailable Feola, T Maggie PA Unavailable Unavailable Feola, T Maggie PA Unavailable Unavailable Feola, T Maggie PA Unavailable Unavailable Alexx Carrizales MD Unavailable Unavailable Alexx Carrizales MD Unavailable Unavailable Alexx Carrizales MD Unavailable Unavailable Alexx Carrizales MD Unavailable Unavailable Alexx Carrizales MD Unavailable Unavailable Alexx Carrizales MD Unavailable Unavailable Alexx Carrizales MD Unavailable Unavailable Alexx Carrizales MD Unavailable Unavailable Alexx Carrizales MD Unavailable Unavailable Alexx Carrizales MD Unavailable Unavailable Alexx Carrizales MD Unavailable Unavailable Alexx Carrizales MD Unavailable Unavailable Alexx Carrizales MD Unavailable Unavailable Alexx Carrizales MD Unavailable Unavailable Alexx Carrizales MD Unavailable Unavailable Alexx Carrizales MD Unavailable Unavailable Alexx Carrizales MD Unavailable Unavailable Alexx Carrizales MD Unavailable Unavailable Alexx Carrizales MD Unavailable Unavailable Alexx Carrizales MD Unavailable Unavailable Alexx Carrizales MD Unavailable Unavailable Alexx Carrizales MD Unavailable Unavailable Alexx Carrizales MD Unavailable Unavailable Alexx Carrizales MD Unavailable Unavailable Alexx Carrizales MD Unavailable Unavailable Alexx Carrizales MD Unavailable Unavailable Alexx Carrizales MD Unavailable Unavailable Alexx Carrizales MD Unavailable Unavailable Alexx Carrizales MD Unavailable Unavailable Alexx Carrizales MD Unavailable Unavailable Alexx Carrizales MD Unavailable Unavailable Alexx Carrizales MD Unavailable Unavailable Alexx Carrizales MD Unavailable Unavailable Alexx Carrizales MD Unavailable Unavailable Alexx Carrizales MD Unavailable Unavailable Alexx Carrizales MD Unavailable Unavailable lAexx Carrizales MD Unavailable Unavailable Alexx Carrizales MD Unavailable Unavailable Alexx Carrizales MD Unavailable Unavailable Alexx Carrizales MD Unavailable Unavailable Alexx Carrizales MD Unavailable Unavailable Carrizales, Alexx Kwesi MD Unavailable Unavailable Carrizales, Alexx Kwesi MD Unavailable Unavailable Carrizales, Alexx Orosco MD Unavailable Unavailable Carrizales, Alexx Orosco MD Unavailable Unavailable Carrizales, Alexx Orosco MD Unavailable Unavailable Carrizales, Alexx Kwesi MD Unavailable Unavailable Carrizales, Alexx Orosco MD Unavailable Unavailable Carrizales, Alexx Orosco MD Unavailable Unavailable Carrizales, Alexx Orosco MD Unavailable Unavailable Carrizales, Alexx Orosco MD Unavailable Unavailable Carrizales, Alexx Orosco MD Unavailable Unavailable Carrizales, Alexx Orosco MD Unavailable Unavailable Carrizales, Alexx Orosco MD Unavailable Unavailable Re-disclosure Warning The records that you are about to access may contain information from federally-assisted alcohol or drug abuse programs. If such information is present, then the following federally mandated warning applies: This information has been disclosed to you from records protected by federal confidentiality rules (42 CFR part 2). The federal rules prohibit you from making any further disclosure of this information unless further disclosure is expressly permitted by the written consent of the person to whom it pertains or as otherwise permitted by 42 CFR part 2. A general authorization for the release of medical or other information is NOT sufficient for this purpose. The Federal rules restrict any use of the information to criminally investigate or prosecute any alcohol or drug abuse patient.The records that you are about to access may contain highly sensitive health information, the redisclosure of which is protected by Article 27-F of the [facility] Public Health law. If you continue you may have access to information: Regarding HIV / AIDS; Provided by facilities licensed or operated by the [facility] Office of Mental Health; or Provided by the [facility] Office for People With Developmental Disabilities. If such information is present, then the following [facility] mandated warning applies: This information has been disclosed to you from confidential records which are protected by state law. State law prohibits you from making any further disclosure of this information without the specific written consent of the person to whom it pertains, or as otherwise permitted by law. Any unauthorized further disclosure in violation of state law may result in a fine or assisted sentence or both. A general authorization for the release of medical or other information is NOT sufficient authorization for further disc losure. Family History Family Member Name Family Member Gender Family Member Status Date o f Status Description Data Source(s) Unknown Male Problem MEDENT ([facility]) Unknown Male Problem MEDENT ([facility] Unknown Female Problem [facility] Unknown Female Problem MEDENT ([facility]) Unknown Female Problem MEDENT ([facility]) Unknown Female Problem MEDENT ([facility]) Encounters Encounter Providers Location Date Indications Data Source(s ) [place] [address] [facility] [facility] [address] 03/11/2021 12:00:00 AM EDT eCW1 ([facility]) [place] [address] [facility] [address] 02/10/2021 12:00:00 AM EDT eCW1 ([facility]) Outpatient 02/05/2021 10:26:47 PM EDT - 021 10:36:43 PM EDT DocuTap ([facility]) Outpatient Attender: Kwesi Guevara/Dara/Pool/Mahnaz jackson 02/03/2021 09:00:00 AM EDT MEDENT ([facility]) Outpatient Attender: Maggie GAONA 021 06:23:37 PM EDT - 01/27/2021 06:53:01 PM EDT [facility] ([facility] ) Outpatient Attender: Maggie GAONA 021 04:25:17 PM EDT - 01/10/2021 05:11:28 PM EDT [facility] ([facility] ) [place] [address] [facility] [address] 12/30/2020 12:00:00 AM EDT eCW1 [facility]) [place] [address] [facility] [address] 09/24/2020 12:00:00 AM EDT eCW1 ([facility]) [place] [address] [facility] [facility] [address] 08/26/2020 12:00:00 AM EST eCW1 ([facility]) [place] [address] [facility] [address] 08/25/2020 12:00:00 AM EST eCW1 ([facility]) [place] [address] [facility] [address] 08/04/2020 12:00:00 AM EST eCW1 ([facility]) [place] [address] [facility] [address] 07/01/2020 12:00:00 AM EST eCW1 ([facility]) Unknown [address] [facility] [address] 06/22/2020 12:00:00 AM EST eCW1 ([facility]) [place] [address] [facility] [address] 04/19/2020 12:00:00 AM EDT eCW1 ([facility]) [place] [address] [facility] [address] 04/19/2020 12:00:00 AM EDT eCW1 ([facility]) Immunizations Vaccine Date Status Description Data Source(s) COVID-19 VACCINE Moderna 10/11/2020 12:00:00 AM EDT completed [facility] Vaccine Series Complete: YESThis Data wa s Submitted to [facility] Via [place]. COVID-19 VACCINE Moderna 09/09/2020 12:00:00 AM EDT completed [place] Vaccine Series Complete: NOThis Data was Submitted to [facility] [place]. influenza, recombinant, quadrIvalent,injectable, prese rvative free 04/19/2020 05:43:00 PM EDT completed eCW1 ([facility]) influenza, recombinant, quadrIvalent,injectable, prese rvative free 04/19/2020 05:43:00 PM EDT completed eCW1 ([facility]) influenza, recombinant, quadrIvalent,injectable, prese rvative free 04/19/2020 05:43:00 PM EDT completed eCW1 ([facility]) influenza, recombinant, quadrIvalent,injectable, prese rvative free 04/19/2020 05:43:00 PM EDT completed eCW1 ([facility]) influenza, recombinant, quadrIvalent,injectable, prese rvative free 04/19/2020 05:43:00 PM EDT completed eCW1 ([facility]) influenza, recombinant, quadrIvalent,injectable, prese rvative free 04/19/2020 05:43:00 PM EDT completed eCW1 ([facility]) influenza, recombinant, quadrIvalent,injectable, prese rvative free 04/19/2020 05:43:00 PM EDT completed eCW1 ([facility]) influenza, recombinant, quadrIvalent,injectable, prese rvative free 04/19/2020 05:43:00 PM EDT completed eCW1 ([facility]) influenza, recombinant, quadrIvalent,injectable, prese rvative free 04/19/2020 05:43:00 PM EDT completed eCW1 ([facility]) influenza, recombinant, quadrIvalent,injectable, prese rvative free 04/19/2020 05:43:00 PM EDT completed eCW1 ([facility]) influenza, recombinant, quadrIvalent,injectable, prese rvative free 04/19/2020 05:43:00 PM EDT completed eCW1 ([facility]) Medications Medication Brand Name Start Date Product Form Dose Route Admi nistrative Instructions Pharmacy Instructions Status Indications Reaction Description Data Source(s) 25 mcg 03/25/2021 12:00:00 AM EDT tablet 30 TAKE ONE TABLET BY MOUTH EVERY MORNING ON AN EMPTY STOMACH TAKE ONE TABLET BY MOUTH EVERY MORNING O N AN EMPTY STOMACH SOLD: 04/05/2021 [facility] 300 mg 03/11/2021 12:00:00 AM EDT capsule 90 TAKE ONE CAPSULE BY MOUTH THREE TIMES A DAY TAKE ONE CAPSULE BY MOUTH THREE TIMES A DAY SOLD: 03/11/2021 [facility] 10 mg 02/11/2021 12:00:00 AM EDT tablet 15 TAKE THREE TABLETS BY MOUTH EVERY DAY FOR 5 DAYS TAKE THREE TABLETS BY MOUTH EVERY DAY FOR 5 DAYS SOLD: 02/12/2021 [facility] 10 mg 02/11/2021 12:00:00 AM EDT tablet 60 TAKE 1-2 TABLETS BY MOUTH NEEDED BEFORE BED TAKE 1-2 TABLETS BY MOUTH NEEDED BEFORE BED SOLD: 02/12/2021 [facility] Hydroxyzine Hydrochloride 10 MG Oral Tablet hydrOXYzin e HCl 10 MG hydrOXYzine HCl 10 MG 02/10/2021 12:00:00 AM EDT active hydrOXYzine HCl 10 MG eCW1 ([facility]) Hydroxyzine Hydrochloride 10 MG Oral Tablet hydrOXYzin e HCl 10 MG hydrOXYzine HCl 10 MG 02/10/2021 12:00:00 AM EDT active hydrOXYzine HCl 10 MG eCW1 ([facility]) Prednisone 10 MG Oral Tablet predniSONE 10 MG predniSONE 10 MG 02/10/2021 12:00:00 AM EDT 3.0 {tablets} active p redniSONE 10 MG eCW1 ([facility]) Prednisone 10 MG Oral Tablet predniSONE 10 MG predniSONE 10 MG 02/10/2021 12:00:00 AM EDT 3.0 {tablets} active p redniSONE 10 MG eCW1 ([facility]) 90 mcg/actuation 02/03/2021 12:00:00 AM EDT HFA aerosol inha ler 18 INHALE TWO PUFFS BY MOUTH FOUR TIMES A DAY NEEDED INHALE TWO PUFFS BY MOUTH FOUR TIMES A DAY NEEDED SOLD: 02/10/2021 [facility] 30 ACTUAT fluticasone furoate 0.2 MG/ACT UAT / vilanterol 0.025 MG/ACTUAT Dry Powder Inhaler [Breo] 200-25 mcg/dose FLUTICASONE/VILANTEROL 02/03/2021 12:00 :00 AM EDT blister with device 60 INHALE ONE PUFF BY MO UTH EVERY DAY INHALE ONE PUFF BY MOUTH EVERY DAY SOLD: 02/10/2021 [facility] Diclofenac Sodium 75 MG Delayed Release Oral Tablet DICLOFEN AC SODIUM 09/25/2020 12:00:00 AM EDT tablet,delayed release (DR/EC) 60 TAKE ONE TABLET BY MOUTH TWICE A DAY NEEDED WITH FOOD OR MILK TAKE ONE TABLET BY MOUTH TWICE A DAY NEEDED WITH FOOD OR MILK SOLD: 09/29/2020 [facility] Diclofenac Sodium 75 MG Delayed Release Oral Tablet Diclofen ac Sodium 75 MG 08/26/2020 12:00:00 AM EST 1.0 {tablet_with_food_or_milk} active Diclofenac Sodium 75 MG eCW1 ([facility]) Diclofenac Sodium 75 MG Delayed Release Oral Tablet Diclofen ac Sodium 75 MG 08/26/2020 12:00:00 AM EST 1.0 {tablet_with_food_or_milk} active Diclofenac Sodium 75 MG eCW1 ([facility]) Diclofenac Sodium 75 MG Delayed Release Oral Tablet Diclofen ac Sodium 75 MG 08/26/2020 12:00:00 AM EST 1.0 {tablet_with_food_or_milk} active Diclofenac Sodium 75 MG eCW1 ([facility]) Diclofenac Sodium 75 MG Delayed Release Oral Tablet Diclofen ac Sodium 75 MG 08/26/2020 12:00:00 AM EST 1.0 {tablet_with_food_or_milk} active Diclofenac Sodium 75 MG eCW1 ([facility]) Diclofenac Sodium 75 MG Delayed Release Oral Tablet Diclofen ac Sodium 75 MG 08/26/2020 12:00:00 AM EST 1.0 {tablet_with_food_or_milk} suspended Diclofenac Sodium 75 MG eCW1 ([facility]) Diclofenac Sodium 75 MG Delayed Release Oral Tablet DICLOFEN AC SODIUM 08/26/2020 12:00:00 AM EST tablet,delayed release (DR/EC) 20 TAKE ONE TABLET BY MOUTH TWICE A DAY WITH FOOD TAKE ONE TABLET BY MOUTH TWICE A DAY WITH FOOD SOLD: 08/26/2020 [facility] Diclofenac Sodium 75 MG Delayed Release Oral Tablet Diclofen ac Sodium 75 MG 08/26/2020 12:00:00 AM EST 1.0 {tablet_with_food_or_milk} suspended Diclofenac Sodium 75 MG eCW1 ([facility]) 50 mcg 07/01/2020 12:00:00 AM EST tablet 30 TAKE ONE TABLET BY MOUTH EVERY MORNING ON AN EMPTY STOMACH ONCE A DAY TAKE ONE TABLET BY MOUTH EVERY MORNING O N AN EMPTY STOMACH ONCE A DAY SOLD: 07/05/2020 [facility] 1 % 04/20/2020 12:00:00 AM EDT cream 60 APPLY THIN LAYER TO AFFECTED AREAS ON BACK AND EXTREMITIES TWO TIMES A DAY APPLY THIN LAYER TO AFFECTED AREAS ON BACK AND EXTREMITIES TWO TIMES A DAY SOLD: 04/20/2020 [facility] Pimecrolimus 10 MG/ML Topical Cream [Elidel] Elidel 1 % Elid el 1 % 04/19/2020 12:00:00 AM EDT suspended Elide l 1 % eCW1 ([facility]) Pimecrolimus 10 MG/ML Topical Cream [Elidel] Elidel 1 % Elid el 1 % 04/19/2020 12:00:00 AM EDT active Elidel 1 % eCW1 ([facility]) Pimecrolimus 10 MG/ML Topical Cream [Elidel] Elidel 1 % Elid el 1 % 04/19/2020 12:00:00 AM EDT active Elidel 1 % eCW1 ([facility]) Pimecrolimus 10 MG/ML Topical Cream [Elidel] Elidel 1 % Elid el 1 % 04/19/2020 12:00:00 AM EDT active Elidel 1 % eCW1 ([facility]) Pimecrolimus 10 MG/ML Topical Cream [Elidel] Elidel 1 % Elid el 1 % 04/19/2020 12:00:00 AM EDT active Elidel 1 % eCW1 ([facility]) Pimecrolimus 10 MG/ML Topical Cream [Elidel] Elidel 1 % Elid el 1 % 04/19/2020 12:00:00 AM EDT active Elidel 1 % eCW1 ([facility]) Pimecrolimus 10 MG/ML Topical Cream [Elidel] Elidel 1 % Elid el 1 % 04/19/2020 12:00:00 AM EDT suspended Elide l 1 % eCW1 ([facility]) Pimecrolimus 10 MG/ML Topical Cream [Elidel] Elidel 1 % Elid el 1 % 04/19/2020 12:00:00 AM EDT active Elidel 1 % eCW1 ([facility]) Pimecrolimus 10 MG/ML Topical Cream [Elidel] Elidel 1 % Elid el 1 % 04/19/2020 12:00:00 AM EDT active Elidel 1 % eCW1 ([facility]) Pimecrolimus 10 MG/ML Topical Cream [Elidel] Elidel 1 % Elid el 1 % 04/19/2020 12:00:00 AM EDT active Elidel 1 % eCW1 ([facility]) Pimecrolimus 10 MG/ML Topical Cream [Elidel] Elidel 1 % Elid el 1 % 04/19/2020 12:00:00 AM EDT active Elidel 1 % eCW1 ([facility]) Autopap 02/24/2020 12:00:00 AM EDT active MEDENT ([facility] ) Insurance Providers Payer name Policy type / Coverage type Policy ID Covered republican ID Covered republican's relationship to bernal Policy Bernal Plan Information [facility] [id number] [facility] [id number] EXCELLUS C [id number] Spouse [id number] EXCELLUS C [id number] Self [id number] Excellus Blue Cross and Blue Shield - [place] Blue Cross/B lue Shield [id number] Spouse [id number] EXCELLUS BC-BS PPO [id number] EXCELLUS H [id number] Spouse [id number] BCBS VI HMO [id number] SP [id number] AETNA MEDICARE [id number] [facility] OPTIONS SP BLUE CROSS BLUE SHIELD -O/P [id number] BC[place] 306/[id number] SP [id number] Excellus Blueshield U/W Commercial [id number] Self YN [id number] Aetna Medigap Part B [id number] Family Dependent [id number] Excell[employer] Blueshield U/W Commercial [id number] Self YN [id number] BCBS/[place] Commercial [id number] Self [id number] Excell[employer] Blueshield U/W Commercial [id number] Self YN [id number] BCBS/[place] Commercial [id number] [id number] Self [id number] AETNA MEDICARE [id number] SP [id number] AETNA MEDICARE O [id number] S [id number] Aetna Commercial [id number] Family Dependent [id number] Aetna Commercial [id number] Family Dependent [id number] Aetna Commercial [id number] Family Dependent [id number] Aetna Ppo/Pos/Nap/MC Commercial [id number] Self [id number] BCBS Federal P [id number] BC BS [place] FEDERAL B [id number] O [id number] AETNA HEALTHCARE [place] [id number] SP [id number] Aetna Ppo/Pos/Nap/MC Commercial [id number] Self [id number] BCBS FEDERAL EMPLOYEE PROGRAM [id number] HU2 [id number] EXCELLUS BCBS FEDERAL [id number] HU2 [id number] BCBS Federal Plan Commercial [id number] Family Dependent [id number] BCBS Federal Plan Commercial [id number] Family Dependent [id number] BCBS Federal Plan Commercial ..[id number] Family Dependent BCBS [facility] AREA [id number] [id number] [facility] [id number] BC BS [place] FEDERAL [id number] HU2 [id number] [place] [id number] SPO [id number] BCBS [place] PPO 302/307 [id number] [id number] [place]CE[place] BC-BS PPO 306 [id number] SP [id number] EXCELLUS BC-BS PPO 306 [id number] EXCELLUS BCBS B [id number] P [id number] SELF PAY ONLY SP AETNA MEDICARE O [id number] S [id number] Problems, Conditions, and Diagnoses Code Display Name Description Problem Type Effective Dates Data Source(s) G89.29 [id number] Other chronic pain Problem 03/11/2021 12:00: 00 AM EDT eCW1 ([facility]) G47.00 [id number] Insomnia, unspecified type Problem 12:00:00 AM EDT eCW1 ([facility]) Z86.711 [id number] History of pulmonary embolism Problem 07/10/2020 12:00:00 AM EST eCW1 ([facility]) E78.00 [id number] Elevated cholesterol Problem 04/19/2020 12:0 0:00 AM EDT eCW1 ([facility]) Surgeries/Procedures Procedure Description Date Indications Data Source(s) Medication: Toradol 30mg/1mL IM (Ketorolac) 02/10/2021 12:00:00 AM EDT eCW1 ([facility]) Spirometry 02/03/2021 12:00:00 AM EDT Rubi NOBLE ([facility], ) OFFICE OUTPATIENT VISIT 15 MINUTES 02/03/2021 12:00:00 AM EDT LEONCIO ([facility]) Immunization: Flublok Quadrivalent (18 years & older) 0.5mL IM (Influenza) 04/19/2020 12:00:00 AM EDT eCW1 ([facility]) Results ID Date Data Source [id number] 04/13/2021 12:00:00 AM EDT [facility] Name Value Range Interpretation Code Description Data Tayler rce(s) Supporting Document(s) PCR NEGATIVE [facility] This lab was ordered by [facility] and reported by [facility]. ID Date Data Source [id number] 03/18/2021 05:30:00 PM EDT [facility] Name Value Range Interpretation Code Description Data Tayler rce(s) Supporting Document(s) SARS-CoV-2 RNA Resp Ql SHREYA+probe NOT DETECTED [facility] This lab was ordered by [facility] and reported by [facility]. ID Date Data Source MAGNESIUM LEVEL 03/16/2021 12:00:00 AM EDT eCW1 ([facility]) Name Value Range Interpretation Code Description Data Tayler rce(s) Supporting Document(s) 2.5 1.8-2.4 MAGNESIUM LEVEL eCW1 ([facility]) ID Date Data Source Basic Metabolic Profile (BMP) 03/16/2021 12:00:00 AM EDT eCW 1 ([facility]) Name Value Range Interpretation Code Description Data Tayler rce(s) Supporting Document(s) 12 7-18 BLOOD UREA NITROGEN eCW1 ([facility]) 103 70-100 GLUCOSE, FASTING eCW1 ([facility]) 0.57 0.55-1.30 CREATININE FOR GFR eCW1 ([facility]) 107 98-107 CHLORIDE LEVEL eCW1 ([facility]) 142 136-145 SODIUM LEVEL eCW1 ([facility]) > 60.0 >51 GLOMERULAR FILTRATION RATE eCW 1 ([facility]) 27 21-32 CARBON DIOXIDE LEVEL eCW1 ([facility]) 4.9 3.5-5.1 POTASSIUM SERUM eCW1 ([facility]) 9.2 8.5-10.1 CALCIUM LEVEL eCW1 ([facility]) ID Date Data Source FREE T4 & TSH PANEL 03/16/2021 12:00:00 AM EDT eCW1 ([facility]) Name Value Range Interpretation Code Description Data Tayler rce(s) Supporting Document(s) 3.580 0.358-3.740 THYROID STIMULATING HORM ONE eCW1 ([facility]) 0.94 0.76-1.46 FREE T4 eCW1 ([facility]) ID Date Data Source [id number] 02/05/2021 10:30:00 PM EDT [facility] Name Value Range Interpretation Code Description Data Tayler rce(s) Supporting Document(s) SARS-CoV-2 RNA Resp Ql SHREYA+probe NOT DETECTED [facility] This lab was ordered by DAKSHA de la torre and reported by [facility]. ID Date Data Source [id number] 02/03/2021 06:30:00 PM EDT [facility] Name Value Range Interpretation Code Description Data Tayler rce(s) Supporting Document(s) SARS-CoV-2 RNA Resp Ql SHREYA+probe NOT DETECTED [facility] This lab was ordered by DAKSHA de la torre and reported by [facility]. ID Date Data Source [id number] 01/10/2021 04:30:00 PM EDT [facility] Name Value Range Interpretation Code Description Data Tayler rce(s) Supporting Document(s) SARS-CoV-2 RNA Resp Ql SHREYA+probe NOT DETECTED [facility] This lab was ordered by DAKSHA de la torre and reported by [facility]. ID Date Data Source [id number] 01/03/2021 12:00:00 AM EDT [facility] Name Value Range Interpretation Code Description Data Tayler rce(s) Supporting Document(s) PCR NEGATIVE [facility] This lab was ordered by [facility] and reported by [facility]. ID Date Data Source PLZ KNEE COMPLETE 08/26/2020 12:00:00 AM EST eCW1 ([facility]) Name Value Range Interpretation Code Description Data Tayler rce(s) Supporting Document(s) PLZ KNEE COMPLETE eCW1 ([facility]) Procedure Social History Code Duration Value Status Description Data Source(s ) Smoking 03/11/2021 12:00:00 AM EDT Never Smoker completed Never S moker eCW1 ([facility]) Smoking 02/10/2021 12:00:00 AM EDT Never Smoker completed Never S moker eCW1 ([facility]) Smoking 02/03/2021 12:00:00 AM EDT Patient has never smoked co mpleted Patient has never smoked MEDENT ([facility], ) Smoking 08/26/2020 12:00:00 AM EST Never Smoker completed Never S moker eCW1 ([facility]) Smoking 08/26/2020 12:00:00 AM EST Never Smoker completed Never S moker eCW1 ([facility]) Smoking 08/26/2020 12:00:00 AM EST Never Smoker completed Never S moker eCW1 ([facility]) Smoking 08/26/2020 12:00:00 AM EST Never Smoker completed Never S moker eCW1 ([facility]) Smoking 08/04/2020 12:00:00 AM EST Never Smoker completed Never S moker eCW1 ([facility]) Smoking 07/01/2020 12:00:00 AM EST Never Smoker completed Never S moker eCW1 ([facility]) Smoking 04/19/2020 12:00:00 AM EDT Never Smoker completed Never S moker eCW1 ([facility]) Smoking 04/19/2020 12:00:00 AM EDT Never Smoker completed Never S moker eCW1 ([facility]) Smoking 04/19/2020 12:00:00 AM EDT Never Smoker completed Never S moker eCW1 ([facility]) Vital Signs ID Date Data Source UNK Name Value Range Interpretation Code Description Data Source(s) Body weight 247.4 [lb_av] 247.4 [lb_av] eCW1 ([facility]) Body weight 112.22 kg 112.22 kg eCW1 ([facility]) Body height [in_i] eCW1 ([facility]) Body mass index (BMI) [Ratio] 47.52 kg/m2 47.52 kg/m2 eCW1 ([facility]) Heart rate 87 /min 87 /min eCW1 ([facility]) Respiratory rate 18 /min 18 /min eCW1 ([facility]) Body temperature 97.5 [degF] 97.5 [degF] eCW1 ( [facility]) Systolic blood pressure 130 mm[Hg] 130 mm[Hg] e CW1 ([facility]) Diastolic blood pressure 82 mm[Hg] 82 mm[Hg] eCW1 ([facility]) Body weight 252.4 [lb_av] 252.4 [lb_av] eCW1 ([facility]) Body temperature 97.4 [degF] 97.4 [degF] eCW1 ( [facility]) Systolic blood pressure 132 mm[Hg] 132 mm[Hg] e CW1 ([facility]) Body height [in_i] eCW1 ([facility]) Body mass index (BMI) [Ratio] 48.48 kg/m2 48.48 kg/m2 eCW1 ([facility]) Heart rate 97 /min 97 /min eCW1 ([facility]) Respiratory rate 18 /min 18 /min eCW1 ([facility]) Diastolic blood pressure 84 mm[Hg] 84 mm[Hg] eCW1 ([facility]) Body weight 114.49 kg 114.49 kg eCW1 ([facility]) Body height 60 [in_i] 60 [in_i] MEDENT ([facility], ) 5'0" Systolic blood pressure 130 mm[Hg] 130 mm[Hg] M EDENT ([facility], ) Diastolic blood pressure 80 mm[Hg] 80 mm[Hg] MEDENT ([facility], ) Heart rate 80 /min 80 /min MEDENT ([facility], ) Oxygen saturation in Arterial blood by Pulse oximetry 96 % 96 % MEDIVETTE ([facility], ) Room Air Body weight 254.00 [lb_av] 254.00 [lb_av] MEDEN T [facility] Body mass index (BMI) [Ratio] 49.6 kg/m2 49.6 k g/m2 MEDENT ([facility]) [place] body weight 100 [lb_av] 100 [lb_av] MEDEN T ([facility]) Body weight 115.214 kg 115.214 kg MEDENT ([facility]) Body surface area Derived from formula 2.07 m2 2.07 m2 MEDENT ([facility]) Body weight 203 [lb_av] 203 [lb_av] eCW1 ([facility]) Body height [in_i] eCW1 ([facility]) Body mass index (BMI) [Ratio] 38.99 kg/m2 38.99 kg/m2 W1 ([facility]) Heart rate 75 /min 75 /min eCW1 ([facility]) Respiratory rate 18 /min 18 /min eCW1 ([facility]) Body temperature 97.5 [degF] 97.5 [degF] eCW1 ( [facility]) Systolic blood pressure 128 mm[Hg] 128 mm[Hg] e CW1 ([facility]) Diastolic blood pressure 82 mm[Hg] 82 mm[Hg] eCW1 ([facility]) Body weight 225 [lb_av] 225 [lb_av] eCW1 ([facility]) Body mass index (BMI) [Ratio] 43.21 kg/m2 43.21 kg/m2 eCW1 ([facility]) Body height [in_i] eCW1 ([facility]) Heart rate 92 /min 92 /min eCW1 ([facility]) Respiratory rate 18 /min 18 /min eCW1 ([facility]) Body temperature 97.9 [degF] 97.9 [degF] eCW1 ( [facility]) Systolic blood pressure 148 mm[Hg] 148 mm[Hg] e CW1 ([facility]) Diastolic blood pressure 84 mm[Hg] 84 mm[Hg] eCW1 ([facility]) Systolic blood pressure 126 mm[Hg] 126 mm[Hg] M EDENT ([facility]) Diastolic blood pressure 80 mm[Hg] 80 mm[Hg] [facility] ([facility]) Heart rate 76 /min 76 /min [facility] ([facility]) Oxygen saturation in Arterial blood by Pulse oximetry 97 % 97 % [facility] ([facility]) Room Air Body height 60 [in_i] 60 [in_i] [facility] ([facility]) 5'0" Body weight 252.00 [lb_av] 252.00 [lb_av] MEDEN T ([facility]) Body mass index (BMI) [Ratio] 49.2 kg/m2 49.2 k g/m2 [facility] ([facility]) [place] body weight 100 [lb_av] 100 [lb_av] MEDEN T ([facility]) Body weight 114.307 kg 114.307 kg [facility] ([facility]) Body surface area Derived from formula 2.06 m2 2.06 m2 [facility] ([facility]) Body weight 252 [lb_av] 252 [lb_av] eCW1 ([facility]) Body height [in_i] eCW1 ([facility]) Body mass index (BMI) [Ratio] 48.40 kg/m2 48.40 kg/m2 eCW1 ([facility]) Heart rate 100 /min 100 /min eCW1 ([facility]) Respiratory rate 18 /min 18 /min eCW1 ([facility]) Body temperature 97.3 [degF] 97.3 [degF] eCW1 ( [facility]) Systolic blood pressure 136 mm[Hg] 136 mm[Hg] e CW1 ([facility]) Diastolic blood pressure 80 mm[Hg] 80 mm[Hg] eCW1 ([facility]) Body weight 247 [lb_av] 247 [lb_av] eCW1 ([facility]) Body height [in_i] eCW1 ([facility]) Body mass index (BMI) [Ratio] 47.44 kg/m2 47.44 kg/m2 eCW1 ([facility]) Heart rate 80 /min 80 /min eCW1 ([facility]) Respiratory rate 18 /min 18 /min eCW1 ([facility]) Body temperature 97.8 [degF] 97.8 [degF] eCW1 ( [facility]) Systolic blood pressure 118 mm[Hg] 118 mm[Hg] e CW1 ([facility]) Diastolic blood pressure 74 mm[Hg] 74 mm[Hg] eCW1 ([facility]) Patient Treatment Plan of Care Planned Activity Planned Date Details Description Data Source (s) Prednisone 10 MG Oral Tablet 02/10/2021 12:00:00 AM EDT eCW1 ([facility]) Hydroxyzine Hydrochloride 10 MG Oral Tablet 02/10/2021 12:00:00 AM EDT eCW1 ([facility]) Diclofenac Sodium 75 MG Delayed Release Oral Tablet 08/27/19 21 12:00:00 AM EST eCW1 ([facility]) Diclofenac Sodium 75 MG Delayed Release Oral Tablet 08/27/19 21 12:00:00 AM EST eCW1 ([facility]) Diclofenac Sodium 75 MG Delayed Release Oral Tablet 08/27/19 21 12:00:00 AM EST eCW1 ([facility]) Diclofenac Sodium 75 MG Delayed Release Oral Tablet 08/27/19 21 12:00:00 AM EST eCW1 ([facility]) Pimecrolimus 10 MG/ML Topical Cream [Elidel] 04/19/2020 12:00:00 AM EDT eCW1 ([facility]) Pimecrolimus 10 MG/ML Topical Cream [Elidel] 04/19/2020 12:00:00 AM EDT eCW1 ([facility]) Pimecrolimus 10 MG/ML Topical Cream [Elidel] 04/19/2020 12:00:00 AM EDT eCW1 ([facility])
--- OUTSIDE RECORDS SUMMARY | 2021-04-23 19:02 | CCD ---
Author Author [facility] Organization [facility] Address Unknown Phone Unavailable Care Team Providers Care Sheet Metal Former Name Role Phone Mechelle Mcduffie Unavailable PROBLEMS Type Condition ICD9-CM Code [id number] Code Onset Dates Condition S tatus W/U Status Risk SNOMED Code Notes Problem History of pulmonary embolism Z86.711 Active confir med 704895767 Problem BMI 45.0-49.9, adult Z68.42 Active confirmed 684308237 Problem Insomnia, unspecified type G47.00 Active confirmed 879527883 Problem Other chronic pain G89.29 Active confirmed 8 2160879 Problem Vitamin D deficiency E55.9 Active confirmed 39929246 Problem Other depression F32.89 Active confirmed 354 99857 Problem Hypothyroidism, unspecified type E03.9 Active conf irmed 59334905 Problem Elevated cholesterol E78.00 Active confirmed 82990692 ALLERGIES No Known Allergies ENCOUNTERS from 1970 to 2021-03-18 Encounter Location Date Provider Diagnosis [address] [phone] [place] [address] Feb, Mechelle Froy Pain in thoracic spine M54.6 ; Other chronic pain G89.29 ; Muscle cramping R25.2 and Hypothyroidism, unspecified type E03.9 IMMUNIZATIONS Vaccine Route Administration Date Status Influenza [...] Education Language: Question Answer Notes Languages spoken: Setswana Sexual Hx: Question Answer Notes Had sex in the last 12 months (vaginal, oral, or anal)? Yes Have you ever had an STD? No with Men only Use protection? No Drug and Alcohol Question Answer Notes Total Score: 0 Interpretation: No problems reported Tobacco Use: Question Answer Notes Are you a: never smoker REASON FOR REFERRAL No Information VITAL SIGNS Weight 247.4 lbs Feb, Weight-kg 112.22 kg Feb, Height 60 1/2 in Feb, BMI 47.52 kg/m2 Feb, Heart Rate 87 /min Feb, Respiratory Rate 18 /min Feb, Temperature 97.5 degrees Fahrenheit Feb, Oximetry 98 Feb, Blood pressure systolic 130 mm Hg Feb, Blood pressure diastolic 82 mm Hg Feb, MEDICATIONS Medication SIG (Take, Route, Frequency, Duration) Notes Start Da te End Date Status Tylenol Active predniSONE 10 MG 3 tablets Orally Once a day for 5 day(s) Jan, Active Diclofenac Sodium 75 MG 1 tablet with food or milk O rally Twice a day as needed for 30 days Aug, Not-Taking hydrOXYzine HCl 10 MG 1-2 tablets as needed Orally before bed fo r 30 Days Jan, Active predniSONE 5 MG 2 tablets Orally Once a day for 21 day(s) October, Not-Taking Albuterol Sulfate HFA 108 (90 Base) MCG/ACT 1 puff as needed Inhalation every 4- 6 hrs Active predniSONE 20 MG 2 tablets Orally Once a day x 5 days Not-Taking Budesonide 1 MG/2ML 2 ml as needed Inhalation Once a day Not-Taking Levothyroxine Sodium 50 MCG 1 tablet in the morning on an empty stomach Orally Once a day for 30 day(s) Aug, Active Gabapentin 300 MG 1 capsule Orally tHREE TIMES A DAY for 30 day( s) Jan, Active Breo Ellipta 200-25 MCG/INH INHALE ONE PUFF BY MOUTH E VERY DAY Inhalation for 30 Active Loperamide HCl 2 MG 1 cap Orally take one after each loose stool, MDD 4 Not-Taking Elidel 1 % apply thin layer to affected areas on back and extremities Externally Twice a day for 7 day(s) Mar, Not-Gumaro ing PROCEDURES No Information RESULTS Component Value Reference Range FREE T4 & TSH PANEL Reviewed date:03/18/2021 17:29:08 Interpretation: Performing Lab:[facility] [address] [address] , ,[place] [address] THYROID STIMULATING HORMONE 3.580 0.358-3.740 FREE T4 0.94 0.76-1.46 Basic Metabolic Profile (BMP) Reviewed date:03/18/2021 17:29:08 Interpretation: Performing Lab:[facility] [address] [address] , ,[place] [address] GLUCOSE, FASTING 103 70-100 BLOOD UREA NITROGEN 12 7-18 CREATININE FOR GFR 0.57 0.55-1.30 GLOMERULAR FILTRATION RATE > 60.0 >51 SODIUM LEVEL 142 136-145 POTASSIUM SERUM 4.9 3.5-5.1 CHLORIDE LEVEL 107 98-107 CARBON DIOXIDE LEVEL 27 21-32 CALCIUM LEVEL 9.2 8.5-10.1 MAGNESIUM LEVEL Reviewed date:03/18/2021 17:29:08 Interpretation: Performing Lab:[facility] [address] [address] , ,[place] [address] MAGNESIUM LEVEL 2.5 1.8-2.4 REASON FOR VISIT charley horses in calf of leg MEDICAL (GENERAL) HISTORY Type Description Date Medical [...] Notes Treatment Notes Treatm ent Clinical Notes Feb, Pain in thoracic spine (ICD-10 - M54.6) patient has been on gabapentin before and tolerated it well, will try it again since her back pain is persisting Feb, Other chronic pain (ICD-10 - G89.29) Feb, Muscle cramping (ICD-10 - R25.2) will get labs to look at electrolyte levels, if normal patient may need a muscle relaxer patient should use heat on the cramps as well Feb, Hypothyroidism, unspecified type (ICD-10 - E03.9 ) will also check thyroid levels today Feb, Other Total time spen t with the patient on the day of the encounter: 25 minutes PLAN OF TREATMENT Medication Medication Name Sig Start Date Stop Date Gabapentin 300 MG 1 capsule Orally tHREE TIMES A DAY for 30 day( s) Jan, Treatment Notes Assessment Notes Clinical Notes Pain in thoracic spine patient has been on gabapentin before and tolerated it well, will try it again since her back pain is persisting Muscle cramping will get labs to loo k at electrolyte levels, if normal patient may need a muscle relaxerpatient should use heat on the cramps as well Hypothyroidism, unspecified type will al so check thyroid levels today Next Appt Details prn Reason: Insurance Providers Payer Name Payer Address Payer Phone Insured Name Patient Relati onship to Insured Coverage Start Date Coverage End Date [employer] P[employer] [phone] [address] JEREMY LEE
[2021-04-23] MEDS ORDERED: NORCO, ANEXSIA 5/325MG TABLET (HYDROcodone/ACETAMINOPHEN) PO ONE (19:30)
--- NOTE | 2021-04-23 19:36 | REP ---
INDICATION: rib pain after a fall. COMPARISON: PA and lateral chest, 09/12/2018. TECHNIQUE: Upright PA chest image and 4 views of the right-sided ribs were performed. FINDINGS: The lungs are clear. The heart borders, mediastinum and pulmonary vascular pattern are normal. The upper abdominal bowel gas pattern is normal. There are no acute bony abnormalities of the chest with attention to the right-sided ribs. IMPRESSION: 1. No evidence of acute cardiopulmonary pathology. 2. No evidence of right-sided rib fractures. <Electronically signed by Chema Ba > 04/23/21 193
--- OUTSIDE RECORDS SUMMARY | 2021-04-23 19:51 | CCD ---
Author Author [facility] Organization [facility] Address Unknown Phone Unavailable Care Team Providers Care [employer] Name Role Phone Feola, T Maggie PA [...] T Maggie PA Unavailable Unavailable Feola, T Maggei PA Unavailable Unavailable Feola, T Maggie PA [...] is protected by Article 27-F of the [facility] Public Health law. If you continue you may have access to information: Regarding HIV / AIDS; Provided by facilities licensed or operated by the [facility] Office of Mental Health; or Provided by the [facility] Office for People With Developmental Disabilities. If such information is present, then the following [facility] mandated warning applies: This information has been [...] law may result in a fine or fdc sentence or both. A general authorization for the release of medical or other information is NOT sufficient authorization for further disc losure. Family History Family Member Name Family Member Gender Family Member Status Date o f Status Description Data Source(s) Unknown Male Problem MEDENT ([facility]) Unknown Male Problem MEDENT ([facility] Unknown Female Problem MEDENT ([facility]) Unknown Female Problem MEDENT ([facility]) Unknown Female Problem MEDENT ([facility]) Unknown Female Problem MEDENT ([facility]) Encounters Encounter Providers Location Date Indications Data Source(s ) [place] [address] [facility] [address] 03/11/2021 12:00:00 AM EDT eCW1 ([facility]) [place] [address] [facility] [address] 02/10/2021 12:00:00 AM EDT eCW1 ([facility]) Outpatient 02/05/2021 10:26:47 PM EDT - 021 10:36:43 PM EDT DocuTap ([facility]) Outpatient Attender: Kwesi Guevara/Dara/Chip jackson 02/03/2021 09:00:00 AM EDT MEDENT ([facility]) Outpatient Attender: Maggie GAONA 021 06:23:37 PM EDT - 01/27/2021 06:53:01 PM EDT DocuTap ([facility] ) Outpatient Attender: Maggie GAONA 021 04:25:17 PM EDT - 01/10/2021 05:11:28 PM EDT [facility] ([facility] ) [place] [address] [facility] [address] 12/30/2020 12:00:00 AM EDT eCW1 ([facility]) Unknown [address] [address] 09/24/2020 12:00:00 AM EDT eCW1 ([facility]) [place] [address] [facility] [address] 08/26/2020 12:00:00 AM EST eCW1 ([facility]) Unknown [address] [facility] [address] 08/25/2020 12:00:00 AM EST eCW1 ([facility]) [place] [address] [facility] [address] 08/04/2020 12:00:00 AM EST eCW1 ([facility]) [place] [address] [facility] [address] 07/01/2020 12:00:00 AM EST eCW1 ([facility]) Unknown [address] [facility] [address] 06/22/2020 12:00:00 AM EST eCW1 ([facility]) [place] [address] [facility] [address] 04/19/2020 12:00:00 AM EDT eCW1 ([facility]) Unknown [address] [facility] [address] 04/19/2020 12:00:00 AM EDT eCW1 ([facility]) Immunizations Vaccine Date Status Description Data Source(s) COVID-19 VACCINE Moderna 10/11/2020 12:00:00 AM EDT completed [facility]IS Vaccine Series Complete: YESThis Data wa s Submitted to [facility] Via [employer]. COVID-19 VACCINE Moderna 09/09/2020 12:00:00 AM EDT completed [place] Vaccine Series Complete: NOThis Data was Submitted to [facility] Via [employer]. influenza, recombinant, quadrIvalent,injectable, prese rvative free 04/19/2020 05:43:00 PM EDT completed eCW1 ([facility]) influenza, recombinant, quadrIvalent,injectable, prese rvative free 04/19/2020 05:43:00 PM EDT completed eCW1 ([facility]) influenza, recombinant, quadrIvalent,injectable, prese rvative free 04/19/2020 05:43:00 PM EDT completed eCW1 ([facility]) influenza, recombinant, quadrIvalent,injectable, prese rvative free 04/19/2020 05:43:00 PM EDT completed eCW1 ([facility]) influenza, recombinant, quadrIvalent,injectable, prese rvative free 04/19/2020 05:43:00 PM EDT completed eCW1 ([facility]) influenza, recombinant, quadrIvalent,injectable, prese rvative free 04/19/2020 05:43:00 PM EDT completed eCW1 ([facility]) influenza, recombinant, quadrIvalent,injectable, prese rvative free 04/19/2020 05:43:00 PM EDT completed eCW1 ([facility]) influenza, recombinant, quadrIvalent,injectable, prese rvative free 04/19/2020 05:43:00 PM EDT completed eCW1 ([facility]) influenza, recombinant, quadrIvalent,injectable, prese rvative free 04/19/2020 05:43:00 PM EDT completed eCW1 ([facility]) influenza, recombinant, quadrIvalent,injectable, prese rvative free 04/19/2020 05:43:00 PM EDT completed eCW1 ([facility]) influenza, recombinant, quadrIvalent,injectable, prese rvative free 04/19/2020 05:43:00 PM EDT completed eCW1 ([facility]) Medications Medication Brand Name Start Date Product [...] EDT active hydrOXYzine HCl 10 MG eCW1 ([facility]) Hydroxyzine Hydrochloride 10 MG Oral Tablet hydrOXYzin e HCl 10 MG hydrOXYzine HCl 10 MG 02/10/2021 12:00:00 AM EDT active hydrOXYzine HCl 10 MG eCW1 ([facility]) Prednisone 10 MG Oral Tablet predniSONE 10 MG predniSONE 10 MG 02/10/2021 12:00:00 AM EDT 3.0 {tablets} active p redniSONE 10 MG eCW1 ([facility]) Prednisone 10 MG Oral Tablet predniSONE 10 MG predniSONE 10 MG 02/10/2021 12:00:00 AM EDT 3.0 {tablets} active p redniSONE 10 MG eCW1 ([facility]) 90 mcg/actuation 02/03/2021 12:00:00 AM EDT HFA [...] {tablet_with_food_or_milk} active Diclofenac Sodium 75 MG eCW1 ([facility]) Diclofenac Sodium 75 MG Delayed Release Oral Tablet Diclofen ac Sodium 75 MG 08/26/2020 12:00:00 AM EST 1.0 {tablet_with_food_or_milk} active Diclofenac Sodium 75 MG eCW1 ([facility]) Diclofenac Sodium 75 MG Delayed Release Oral Tablet Diclofen ac Sodium 75 MG 08/26/2020 12:00:00 AM EST 1.0 {tablet_with_food_or_milk} active Diclofenac Sodium 75 MG eCW1 ([facility]) Diclofenac Sodium 75 MG Delayed Release Oral Tablet Diclofen ac Sodium 75 MG 08/26/2020 12:00:00 AM EST 1.0 {tablet_with_food_or_milk} active Diclofenac Sodium 75 MG eCW1 ([facility]) Diclofenac Sodium 75 MG Delayed Release Oral Tablet Diclofen ac Sodium 75 MG 08/26/2020 12:00:00 AM EST 1.0 {tablet_with_food_or_milk} suspended Diclofenac Sodium 75 MG eCW1 ([facility]) Diclofenac Sodium 75 MG Delayed Release Oral [...] {tablet_with_food_or_milk} suspended Diclofenac Sodium 75 MG eCW1 ([facility]) 50 mcg 07/01/2020 12:00:00 AM EST tablet [...] EXTREMITIES TWO TIMES A DAY SOLD: 04/20/2020 [facility] Pimecrolimus 10 MG/ML Topical Cream [Elidel] Elidel 1 % Elid el 1 % 04/19/2020 12:00:00 AM EDT suspended Elide l 1 % eCW1 ([facility]) Pimecrolimus 10 MG/ML Topical Cream [Elidel] Elidel 1 % Elid el 1 % 04/19/2020 12:00:00 AM EDT active Elidel 1 % eCW1 ([facility]) Pimecrolimus 10 MG/ML Topical Cream [Elidel] Elidel 1 % Elid el 1 % 04/19/2020 12:00:00 AM EDT active Elidel 1 % eCW1 ([facility]) Pimecrolimus 10 MG/ML Topical Cream [Elidel] Elidel 1 % Elid el 1 % 04/19/2020 12:00:00 AM EDT active Elidel 1 % eCW1 ([facility]) Pimecrolimus 10 MG/ML Topical Cream [Elidel] Elidel 1 % Elid el 1 % 04/19/2020 12:00:00 AM EDT active Elidel 1 % eCW1 ([facility]) Pimecrolimus 10 MG/ML Topical Cream [Elidel] Elidel 1 % Elid el 1 % 04/19/2020 12:00:00 AM EDT active Elidel 1 % eCW1 ([facility]) Pimecrolimus 10 MG/ML Topical Cream [Elidel] Elidel 1 % Elid el 1 % 04/19/2020 12:00:00 AM EDT suspended Elide l 1 % eCW1 ([facility]) Pimecrolimus 10 MG/ML Topical Cream [Elidel] Elidel 1 % Elid el 1 % 04/19/2020 12:00:00 AM EDT active Elidel 1 % eCW1 ([facility]) Pimecrolimus 10 MG/ML Topical Cream [Elidel] Elidel 1 % Elid el 1 % 04/19/2020 12:00:00 AM EDT active Elidel 1 % eCW1 ([facility]) Pimecrolimus 10 MG/ML Topical Cream [Elidel] Elidel 1 % Elid el 1 % 04/19/2020 12:00:00 AM EDT active Elidel 1 % eCW1 ([facility]) Pimecrolimus 10 MG/ML Topical Cream [Elidel] Elidel 1 % Elid el 1 % 04/19/2020 12:00:00 AM EDT active Elidel 1 % eCW1 ([facility]) Autopap 02/24/2020 12:00:00 AM EDT active MEDENT ([facility], ) Insurance Providers Payer name Policy type / Coverage type Policy ID Covered green party ID Covered green party's relationship to bernal Policy Bernal Plan Information [facility] [id number] [facility] [id number] EXCELLUS C [id number] Spouse [id number] EXCELLUS C [id number] Self [id number] Excellus Blue Cross and Blue Shield - [place] Blue Cross/B lue Shield [id number] Spouse [id number] EXCELLUS BC-BS PPO [id number] EXCELLUS H [id number] Spouse [id number] BCBS VI HMO [id number] SP [id number] AETNA MEDICARE [id number] [facility] HE[facility] CARE OPTIONS SP BLUE CROSS BLUE SHIELD -O/P [id number] BCBS OF [place] 306/806 [id number] SP [id number] Excellus Blueshield U/W Commercial [id number] Self YN [id number] Aetna Medigap Part B [id number] Family Dependent [id number] Excellus Blueshield U/W Commercial [id number] Self YN [id number] BCBS/Excellus Commercial [id number] Self [id number] Excellus Blueshield U/W Commercial [id number] Self YN [id number] BCBS/Excellus Commercial [id number] Self [id number] AETNA MEDICARE [id number] SP [id number] AETNA MEDICARE O [id number] S [id number] Aetna Commercial [id number] Family Dependent [id number] Aetna Commercial [id number] Family Dependent [id number] Aetna Commercial [id number] Family Dependent [id number] Aetna Ppo/Pos/Nap/MC Commercial [id number] Self [id number] BCBS Federal P [id number] M [id number] BC BS [place] FEDERAL B [id number] O [id number] AETNA HEALTHCARE [place] [id number] SP [id number] Aetna Ppo/Pos/Nap/MC Commercial [id number] Self [id number] BCBS FEDERAL EMPLOYEE PROGRAM [id number] HU2 [id number] EXCELLUS BCBS FEDERAL [id number] HU2 [id number] BCBS Federal Plan Commercial [id number] Family Dependent [id number] BCBS Federal Plan Commercial [id number] Family Dependent [id number] BCBS Federal Plan Commercial [id number] Family D[address] BCBS [facility] 080/580 [id number] HU2 [id number] [facility] [id number] [id number] BC BS [place] FEDERAL [id number] HU2 [id number] [place]BS [place] [id number] SPO [id number] BCBS [place] PPO 302/307 [id number] HU2 [id number] EXCELLUS BC-BS PPO 306 [id number] SP [id number] EXCELLUS BC-BS PPO 306 [id number] UNK2 [id number] EXCELLUS BCBS B [id number] P [id number] SELF PAY ONLY SP AETNA MEDICARE O [id number] S [id number] Problems, Conditions, and Diagnoses Code Display Name Description Problem Type Effective Dates Data Source(s) G89.29 [id number] Other chronic pain Problem 03/11/2021 12:00: 00 AM EDT eCW1 ([facility]) G47.00 [id number] Insomnia, unspecified type Problem 12:00:00 AM EDT eCW1 ([facility]) Z86.711 [id number] History of pulmonary embolism Problem 07/10/2020 12:00:00 AM EST eCW1 ([facility]) E78.00 [id number] Elevated cholesterol Problem 04/19/2020 12:0 0:00 AM EDT eCW1 ([facility]) Surgeries/Procedures Procedure Description Date Indications Data Source(s) Medication: Toradol 30mg/1mL IM (Ketorolac) 02/10/2021 12:00:00 AM EDT eCW1 ([facility]) Spirometry 02/03/2021 12:00:00 AM EDT Rubi NOBLE ([facility], ) OFFICE OUTPATIENT VISIT 15 MINUTES 02/03/2021 12:00:00 AM EDT LEONCIO ([facility]) Immunization: Flublok Quadrivalent (18 years & older) 0.5mL IM (Influenza) 04/19/2020 12:00:00 AM EDT eCW1 ([facility]) Results ID Date Data Source [id number] 04/13/2021 12:00:00 AM EDT [facility] Name Value Range Interpretation Code Description Data Tayler rce(s) Supporting Document(s) PCR NEGATIVE [facility] This lab was ordered by [facility] are and reported by [facility]. ID Date Data Source [id number] 03/18/2021 05:30:00 PM EDT [facility] Name Value Range Interpretation Code Description Data Tayler rce(s) Supporting Document(s) SARS-CoV-2 RNA Resp Ql SHREYA+probe NOT DETECTED [facility] This lab was ordered by [facility] and reported by [facility]. ID Date Data Source MAGNESIUM LEVEL 03/16/2021 12:00:00 AM EDT eCW1 ([facility]) Name Value Range Interpretation Code Description Data Tayler rce(s) Supporting Document(s) 2.5 1.8-2.4 MAGNESIUM LEVEL eCW1 ([facility]) ID Date Data Source Basic Metabolic Profile (BMP) 03/16/2021 12:00:00 AM EDT eCW 1 ([facility]) Name Value Range Interpretation Code Description Data Tayler rce(s) Supporting Document(s) 12 7-18 BLOOD UREA NITROGEN eCW1 ([facility]) 103 70-100 GLUCOSE, FASTING eCW1 ([facility]) 0.57 0.55-1.30 CREATININE FOR GFR eCW1 ([facility]) 107 98-107 CHLORIDE LEVEL eCW1 ([facility]) 142 136-145 SODIUM LEVEL eCW1 ([facility]) > 60.0 >51 GLOMERULAR FILTRATION RATE eCW 1 ([facility]) 27 21-32 CARBON DIOXIDE LEVEL eCW1 ([facility]) 4.9 3.5-5.1 POTASSIUM SERUM eCW1 ([facility]) 9.2 8.5-10.1 CALCIUM LEVEL eCW1 ([facility]) ID Date Data Source FREE T4 & TSH PANEL 03/16/2021 12:00:00 AM EDT eCW1 ([facility]) Name Value Range Interpretation Code Description Data Tayler rce(s) Supporting Document(s) 3.580 0.358-3.740 THYROID STIMULATING HORM ONE eCW1 ([facility]) 0.94 0.76-1.46 FREE T4 eCW1 ([facility]) ID Date Data Source [id number] 02/05/2021 10:30:00 PM EDT [facility] Name Value Range Interpretation Code Description Data Tayler rce(s) Supporting Document(s) SARS-CoV-2 RNA Resp Ql SHREYA+probe NOT DETECTED [facility] This lab was ordered by [facility] and reported by [facility]. ID Date Data Source [id number] 02/03/2021 06:30:00 PM EDT [facility] Name Value Range Interpretation Code Description Data Tayler rce(s) Supporting Document(s) SARS-CoV-2 RNA Resp Ql SHREYA+probe NOT DETECTED [facility] This lab was ordered by [facility] and reported by [facility]. ID Date Data Source [id number] 01/10/2021 04:30:00 PM EDT [facility] Name Value Range Interpretation Code Description Data Tayler rce(s) Supporting Document(s) SARS-CoV-2 RNA Resp Ql SHREYA+probe NOT DETECTED [facility] This lab was ordered by [facility] and reported by [facility]. ID Date Data Source [id number] 01/03/2021 12:00:00 AM EDT [facility] Name Value Range Interpretation Code Description Data Tayler rce(s) Supporting Document(s) PCR NEGATIVE [facility] This [facility] reported by [facility]. ID Date Data Source PLZ KNEE COMPLETE 08/26/2020 12:00:00 AM EST eCW1 ([facility]) Name Value Range Interpretation Code Description Data Tayler rce(s) Supporting Document(s) PLZ KNEE COMPLETE eCW1 ([facility]) Procedure Social History Code Duration Value Status Description Data Source(s ) Smoking 03/11/2021 12:00:00 AM EDT Never Smoker completed Never S moker eCW1 ([facility]) Smoking 02/10/2021 12:00:00 AM EDT Never Smoker completed Never S moker eCW1 ([facility]) Smoking 02/03/2021 12:00:00 AM EDT Patient has never smoked co mpleted Patient has never smoked MEDENT ([facility], ) Smoking 08/26/2020 12:00:00 AM EST Never Smoker completed Never S moker eCW1 ([facility]) Smoking 08/26/2020 12:00:00 AM EST Never Smoker completed Never S moker eCW1 ([facility]) Smoking 08/26/2020 12:00:00 AM EST Never Smoker completed Never S moker eCW1 ([facility]) Smoking 08/26/2020 12:00:00 AM EST Never Smoker completed Never S moker eCW1 ([facility]) Smoking 08/04/2020 12:00:00 AM EST Never Smoker completed Never S moker eCW1 ([facility]) Smoking 07/01/2020 12:00:00 AM EST Never Smoker completed Never S moker eCW1 ([facility]) Smoking 04/19/2020 12:00:00 AM EDT Never Smoker completed Never S moker eCW1 ([facility]) Smoking 04/19/2020 12:00:00 AM EDT Never Smoker completed Never S moker eCW1 ([facility]) Smoking 04/19/2020 12:00:00 AM EDT Never Smoker completed Never S moker eCW1 ([facility]) Vital Signs ID Date Data Source UNK Name Value Range Interpretation Code Description Data Source(s) Body weight 247.4 [lb_av] 247.4 [lb_av] eCW1 ([facility]) Body weight 112.22 kg 112.22 kg eCW1 ([facility]) Body height [in_i] eCW1 ([facility]) Body mass index (BMI) [Ratio] 47.52 kg/m2 47.52 kg/m2 eCW1 ([facility]) Heart rate 87 /min 87 /min eCW1 ([facility]) Respiratory rate 18 /min 18 /min eCW1 ([facility]) Body temperature 97.5 [degF] 97.5 [degF] eCW1 ( [facility]) Systolic blood pressure 130 mm[Hg] 130 mm[Hg] e CW1 ([facility]) Diastolic blood pressure 82 mm[Hg] 82 mm[Hg] eCW1 ([facility]) Body weight 252.4 [lb_av] 252.4 [lb_av] eCW1 ([facility]) Body temperature 97.4 [degF] 97.4 [degF] eCW1 ( [facility]) Systolic blood pressure 132 mm[Hg] 132 mm[Hg] e CW1 ([facility]) Diastolic blood pressure 84 mm[Hg] 84 mm[Hg] eCW1 ([facility]) Body weight 114.49 kg 114.49 kg eCW1 ([facility]) Body height [in_i] eCW1 ([facility]) Body mass index (BMI) [Ratio] 48.48 kg/m2 48.48 kg/m2 eCW1 ([facility]) Heart rate 97 /min 97 /min eCW1 ([facility]) Respiratory rate 18 /min 18 /min eCW1 ([facility]) Body height 60 [in_i] 60 [in_i] MEDENT ([facility] ) 5'0" Systolic blood pressure 130 mm[Hg] 130 mm[Hg] M EDENT ([facility] ) Diastolic blood pressure 80 mm[Hg] 80 mm[Hg] MEDENT ([facility] ) Heart rate 80 /min 80 /min MEDENT ([facility] ) Oxygen saturation in Arterial blood by Pulse oximetry 96 % 96 % MEDIVETTE ([facility] ) Room Air Body weight 254.00 [lb_av] 254.00 [lb_av] MEDEN T ([facility]) Body mass index (BMI) [Ratio] 49.6 kg/m2 49.6 k g/m2 [facility] ([facility]) [place] body weight 100 [lb_av[facility] 100 [lb_av] [facility] Body weight 115.214 kg 115.214 kg [facility] ([facility]) Body surface area Derived from formula 2.07 m2 2.07 m2 [facility] ([facility]) Body weight 203 [lb_av] 203 [lb_av] eCW1 ([facility]) Body height [in_i] eCW1 ([facility]) Body mass index (BMI) [Ratio] 38.99 kg/m2 38.99 kg/m2 W1 ([facility]) Heart rate 75 /min 75 /min eCW1 ([facility]) Respiratory rate 18 /min 18 /min eCW1 ([facility]) Body temperature 97.5 [degF] 97.5 [degF] eCW1 ( [facility]) Systolic blood pressure 128 mm[Hg] 128 mm[Hg] e CW1 ([facility]) Diastolic blood pressure 82 mm[Hg] 82 mm[Hg] eCW1 ([facility]) Body weight 225 [lb_av] 225 [lb_av] eCW1 ([facility]) Body mass index (BMI) [Ratio] 43.21 kg/m2 43.21 kg/m2 eCW1 ([facility]) Heart rate 92 /min 92 /min eCW1 ([facility]) Respiratory rate 18 /min 18 /min eCW1 ([facility]) Body temperature 97.9 [degF] 97.9 [degF] eCW1 ( [facility]) Systolic blood pressure 148 mm[Hg] 148 mm[Hg] e CW1 ([facility]) Body height [in_i] eCW1 ([facility]) Diastolic blood pressure 84 mm[Hg] 84 mm[Hg] eCW1 ([facility]) Systolic blood pressure 126 mm[Hg] 126 mm[Hg] M EDENT ([facility]) Diastolic blood pressure 80 mm[Hg] 80 mm[Hg] [facility] ([facility]) Heart rate 76 /min 76 /min [facility] ([facility]) Oxygen saturation in Arterial blood by Pulse oximetry 97 % 97 % [facility] ([facility]) Room Air Body height 60 [in_i] 60 [in_i] [facility] ([facility]) 5'0" Body weight 252.00 [lb_av] 252.00 [lb_av] MEDEN T ([facility]) Body mass index (BMI) [Ratio] 49.2 kg/m2 49.2 k g/m2 [facility] ([facility]) [place] body weight 100 [lb_av] 100 [lb_av] [facility] Body weight 114.307 kg 114.307 kg [facility] ([facility]) Body surface area Derived from formula 2.06 m2 2.06 m2 [facility] ([facility]) Body weight 252 [lb_av] 252 [lb_av] eCW1 ([facility]) Body height [in_i] eCW1 ([facility]) Body mass index (BMI) [Ratio] 48.40 kg/m2 48.40 kg/m2 W1 ([facility]) Heart rate 100 /min 100 /min eCW1 ([facility]) Respiratory rate 18 /min 18 /min eCW1 ([facility]) Body temperature 97.3 [degF] 97.3 [degF] eCW1 ( [facility]) Systolic blood pressure 136 mm[Hg] 136 mm[Hg] e CW1 ([facility]) Diastolic blood pressure 80 mm[Hg] 80 mm[Hg] eCW1 ([facility]) Body weight 247 [lb_av] 247 [lb_av] eCW1 ([facility]) Body height [in_i] eCW1 ([facility]) Body mass index (BMI) [Ratio] 47.44 kg/m2 47.44 kg/m2 eCW1 ([facility]) Heart rate 80 /min 80 /min eCW1 ([facility]) Respiratory rate 18 /min 18 /min eCW1 ([facility]) Body temperature 97.8 [degF] 97.8 [degF] eCW1 ( [facility]) Systolic blood pressure 118 mm[Hg] 118 mm[Hg] e CW1 ([facility]) Diastolic blood pressure 74 mm[Hg] 74 mm[Hg] eCW1 ([facility]) Patient Treatment Plan of Care Planned Activity Planned Date Details Description Data Source (s) Prednisone 10 MG Oral Tablet 02/10/2021 12:00:00 AM EDT eCW1 ([facility]) Hydroxyzine Hydrochloride 10 MG Oral Tablet 02/10/2021 12:00:00 AM EDT eCW1 ([facility]) Diclofenac Sodium 75 MG Delayed Release Oral Tablet 08/27/19 21 12:00:00 AM EST eCW1 ([facility]) Diclofenac Sodium 75 MG Delayed Release Oral Tablet 08/27/19 21 12:00:00 AM EST eCW1 ([facility]) Diclofenac Sodium 75 MG Delayed Release Oral Tablet 08/27/19 21 12:00:00 AM EST eCW1 ([facility]) Diclofenac Sodium 75 MG Delayed Release Oral Tablet 08/27/19 21 12:00:00 AM EST eCW1 ([facility]) Pimecrolimus 10 MG/ML Topical Cream [Elidel] 04/19/2020 12:00:00 AM EDT eCW1 ([facility]) Pimecrolimus 10 MG/ML Topical Cream [Elidel] 04/19/2020 12:00:00 AM EDT eCW1 ([facility]) Pimecrolimus 10 MG/ML Topical Cream [Elidel] 04/19/2020 12:00:00 AM EDT eCW1 ([facility])
--- NOTE | 2021-04-23 20:38 | REPVR ---
PROCEDURE INFORMATION: Exam: CT Chest Without Contrast; Diagnostic Exam date and time: 04/23/2021 8:00 PM Age: 50 years old Clinical indication: Other: Fall onto post R ribs, severe pain TECHNIQUE: Imaging protocol: Diagnostic computed tomography of the chest without contrast. 3D rendering (Not supervised by radiologist): MIP and/or 3D reconstructed images were created by the technologist. Radiation optimization: All CT scans at this facility use at least one of these dose optimization techniques: automated exposure control; mA and/or kV adjustment per patient size (includes targeted exams where dose is matched to clinical indication); or iterative reconstruction. COMPARISON: CT ANGIO CHEST 10/19/2019 12:47 PM FINDINGS: Lungs: Minimal right lower lobe fibro-atelectatic change. Pleural spaces: Unremarkable. No pneumothorax. No pleural effusion. Heart: Unremarkable. No cardiomegaly. No pericardial effusion. Pulmonary arteries: The main pulmonary artery measures 30 mm. Aorta: The ascending thoracic aorta measures 35 mm. Lymph nodes: Unremarkable. No enlarged lymph nodes. Liver: The liver at mid clavicular line measures 14.4 cm. Gallbladder and bile ducts: Status post cholecystectomy. Bones/joints: Slight anterior wedge configuration of T7 and to a lesser degree T6 which appear to be chronic and similar to the prior study. Soft tissues: Unremarkable. IMPRESSION: 1. Minimal right lower lobe fibro-atelectatic change with generalized pulmonary clearing since 10/19/2019. 2. Status post cholecystectomy. 3. Otherwise negative CT chest. No acute posttraumatic change is seen. Electronically signed by: Yadeil Pickett On 04/23/2021 20:38:09 PM
[2021-04-23] MEDS ORDERED: HYDR-3713 PO (20:49)
[2021-04-23] MEDS ORDERED: NORCO 5/325MG TABLET (BULK FOR ED) PO ONE (20:50)
[2021-04-23] MEDS ORDERED: ONDANSETRON 4 MG ORAL DISINTEGRATING TAB PO ONE (20:50)
== END 2021-04-23 21:27 | disposition home or self-care (01) ==
LOC: M ED 18:56
DX: R07.89 Other chest pain (principal); Z86.711 Personal history of pulmonary embolism; Z86.718 Personal history of other venous thrombosis and embolism; Z79.899 Other long term (current) drug therapy
CPT/HCPCS: 71101; 71250; 99283; Q0162

== ENCOUNTER → 2021-05-24 | Outpatient (CLI) | payer BC ==
[~2021-05-24] MED LIST changes: +HYDR-3713 PO
[2021-05-24 15:34] LABS: BASO # 0.1 10^3/uL (0.0-0.2); BASO % 0.7 % (0.0-1.0); EOS # 0.2 10^3/uL (0.0-0.5); EOS % 2.2 % (0.0-3.0); HEMATOCRIT 44.5 % (36.0-47.0); HEMOGLOBIN 14.7 g/dl (12.0-15.5); LYMPH # 2.3 10^3/uL (1.5-5.0); LYMPH % 22.9 % (24.0-44.0); MEAN CORPUSCULAR HEMOGLOBIN 28.5 pg (27.0-33.0); MEAN CORPUSCULAR VOLUME 86.2 fl (80.0-96.0); MONO # 0.6 10^3/uL (0.0-0.8); MONO % 5.6 % (2.0-8.0); NEUTROPHILS # 6.9 10^3/uL (1.5-8.5); NEUTROPHILS % 68.2 % (36.0-66.0); PLATELET COUNT, AUTOMATED 268 10^3/uL (150-450); RED BLOOD COUNT 5.16 10^6/uL (4.00-5.40); WHITE BLOOD COUNT 10.1 10^3/uL (4.0-10.0)
[2021-05-24 16:05] LABS: HEMOGLOBIN A1c 5.7 %
[2021-05-24 16:15] LABS: ALBUMIN 3.7 GM/DL (3.2-5.2); ALT/SGPT 29 U/L (12-78); BILIRUBIN,TOTAL 0.4 MG/DL (0.2-1.0); BLOOD UREA NITROGEN 16 MG/DL (7-18); CARBON DIOXIDE LEVEL 30 MEQ/L (21-32); CHLORIDE LEVEL 105 MEQ/L (98-107); CHOLESTEROL LEVEL 212 MG/DL (<200); CHOLESTEROL RISK RATIO 4.608 (<5); CREATININE FOR GFR 0.71 MG/DL (0.55-1.30); FREE T4 0.97 NG/DL (0.76-1.46); GLOMERULAR FILTRATION RATE > 60.0 (>51); GLUCOSE, FASTING 93 MG/DL (70-100); HDL CHOLESTEROL 46 MG/DL (>40); LDL CHOLESTEROL 137 MG/DL (<100); NON-HDL-C 166 MG/DL; POTASSIUM SERUM 4.2 MEQ/L (3.5-5.1); PTH INTACT 44.9 PG/ML (18.5-88.0); SODIUM LEVEL 142 MEQ/L (136-145); TOTAL 25(OH) VITAMIN D 21.7 NG/ML (30.0-100.0); TOTAL PROTEIN 7.1 GM/DL (6.4-8.2); TRIGLYCERIDES LEVEL 144 MG/DL (<150)
== END ==
LOC: M PLALAB 12:55
PROVIDERS: ATTEND Physician Assistant Medical
DX: Z12.11 Encounter for screening for malignant neoplasm of colon (principal); E03.9 Hypothyroidism, unspecified; E55.9 Vitamin D deficiency, unspecified; E78.00 Pure hypercholesterolemia, unspecified; Z68.41 Body mass index [BMI] 40.0-44.9, adult

== ENCOUNTER 2021-12-30 09:03 | Emergency (ER) | payer OTHER ==
[~2021-12-30] VITALS: Ht 149.9 cm; Wt 110.7 kg
[2021-12-30 12:46] VITALS: BP 136/73
== END 2021-12-30 12:48 | disposition home or self-care (01) ==
LOC: M ED 09:03
DX: M79.662 Pain in left lower leg (principal); E03.9 Hypothyroidism, unspecified; M32.9 Systemic lupus erythematosus, unspecified; G89.29 Other chronic pain; Z86.16 Personal history of COVID-19; Z86.711 Personal history of pulmonary embolism; Z86.718 Personal history of other venous thrombosis and embolism; Z87.19 Personal history of other diseases of the digestive system; Z79.899 Other long term (current) drug therapy; Z79.890 Hormone replacement therapy

== ENCOUNTER → 2022-01-11 | Outpatient (CLI) | payer OTHER | LOC: M SOG 08:13 | PROVIDERS: ATTEND Orthopaedic Surgery Adult Reconstructive Orthopaedic Surgery | DX: M25.562 Pain in left knee (principal) ==

== ENCOUNTER → 2022-01-30 | Outpatient (CLI) | payer OTHER ==
[2022-01-30 14:42] LABS: BASO # 0.1 10^3/uL (0.0-0.2); BASO % 0.8 % (0.0-1.0); EOS # 0.1 10^3/uL (0.0-0.5); EOS % 1.5 % (0.0-3.0); HEMATOCRIT 47.5 % (36.0-47.0); HEMOGLOBIN 15.8 g/dl (12.0-15.5); LYMPH % 21.8 % (24.0-44.0); MEAN CORPUSCULAR HEMOGLOBIN 29.1 pg (27.0-33.0); MEAN CORPUSCULAR HGB CONC 33.3 g/dl (32.0-36.5); MEAN CORPUSCULAR VOLUME 87.5 fl (80.0-96.0); MONO # 0.5 10^3/uL (0.0-0.8); MONO % 5.9 % (2.0-8.0); NEUTROPHILS # 6.3 10^3/uL (1.5-8.5); NEUTROPHILS % 69.8 % (36.0-66.0); PLATELET COUNT, AUTOMATED 253 10^3/uL (150-450); RED BLOOD COUNT 5.43 10^6/uL (4.00-5.40)
[2022-01-30 15:12] LABS: ERYTHROCYTE SEDIMENTATION RATE 2 mm/hr (0-30)
[2022-01-30 22:30] LABS: ALBUMIN 3.9 GM/DL (3.2-5.2); ALT/SGPT 28 U/L (12-78); BILIRUBIN,TOTAL 0.6 MG/DL (0.2-1.0); BLOOD UREA NITROGEN 17 MG/DL (7-18); C REACTIVE PROTEIN QUANTITATIV 1.79 MG/DL (0.00-0.30); CALCIUM LEVEL 9.2 MG/DL (8.5-10.1); CARBON DIOXIDE LEVEL 26 MEQ/L (21-32); CHLORIDE LEVEL 104 MEQ/L (98-107); CHOLESTEROL LEVEL 250 MG/DL (<200); CHOLESTEROL RISK RATIO 4.098 (<5); CREATININE FOR GFR 0.57 MG/DL (0.55-1.30); FREE T4 1.04 NG/DL (0.76-1.46); GLOMERULAR FILTRATION RATE > 60.0 (>51); GLUCOSE, FASTING 91 MG/DL (70-100); HDL CHOLESTEROL 61 MG/DL (>40); LDL CHOLESTEROL 173 MG/DL (<100); NON-HDL-C 189 MG/DL; RHEUMATOID FACTOR QUANT < 10.0 IU/ML (<15.0); SODIUM LEVEL 139 MEQ/L (136-145); TOTAL PROTEIN 7.3 GM/DL (6.4-8.2); TRIGLYCERIDES LEVEL 80 MG/DL (<150)
[2022-01-31 00:20] LABS: HEMOGLOBIN A1c 5.6 %
[2022-02-02 05:07] LABS: DRVV SCREEN 46.8 SEC
[2022-02-02 05:28] LABS: PTT LUPUS TYPE ANTICOAG SCREEN 1.3 (0-1.2)
[2022-02-02 05:35] LABS: DRVV CONFIRM 38.1 SEC
[2022-02-02 05:44] LABS: NORMALIZED RATIO 1.3 (0.00-1.20)
== END ==
LOC: M PLALAB 10:11
PROVIDERS: ATTEND Physician Assistant Medical
DX: F32.89 Other specified depressive episodes (principal); E66.01 Morbid (severe) obesity due to excess calories; K58.0 Irritable bowel syndrome with diarrhea; E55.9 Vitamin D deficiency, unspecified; E03.9 Hypothyroidism, unspecified; E78.00 Pure hypercholesterolemia, unspecified; M17.0 Bilateral primary osteoarthritis of knee; Z86.711 Personal history of pulmonary embolism

== ENCOUNTER → 2022-03-28 | Outpatient (CLI) | payer OTHER | LOC: M RAD 07:09 | PROVIDERS: ATTEND Orthopaedic Surgery Adult Reconstructive Orthopaedic Surgery | DX: S83.242A Other tear of medial meniscus, current injury, left knee, initial encounter (principal) ==

== ENCOUNTER → 2022-06-08 | Outpatient (CLI) | payer OTHER ==
[~2022-06-08] MED LIST changes: +ATOR1TAB21 PO; +GABA-1171 PO; +SYNT75TA PO
== END ==
LOC: M LABSMTC 10:00
PROVIDERS: ATTEND Anesthesiology
DX: Z01.812 Encounter for preprocedural laboratory examination (principal); Z11.52 Encounter for screening for COVID-19

== ENCOUNTER → 2022-06-09 | Outpatient (CLI) | payer OTHER ==
[2022-06-09 17:57] LABS: BASO # 0.1 10^3/uL (0.0-0.2); BASO % 0.7 % (0.0-1.0); EOS # 0.3 10^3/uL (0.0-0.5); EOS % 2.9 % (0.0-3.0); HEMATOCRIT 44.7 % (36.0-47.0); HEMOGLOBIN 14.8 g/dl (12.0-15.5); LYMPH # 2.7 10^3/uL (1.5-5.0); LYMPH % 23.8 % (24.0-44.0); MEAN CORPUSCULAR HGB CONC 33.1 g/dl (32.0-36.5); MEAN CORPUSCULAR VOLUME 87.5 fl (80.0-96.0); MONO # 0.6 10^3/uL (0.0-0.8); MONO % 5.3 % (2.0-8.0); NEUTROPHILS # 7.5 10^3/uL (1.5-8.5); NEUTROPHILS % 66.9 % (36.0-66.0); PLATELET COUNT, AUTOMATED 286 10^3/uL (150-450); RED BLOOD COUNT 5.11 10^6/uL (4.00-5.40); WHITE BLOOD COUNT 11.2 10^3/uL (4.0-10.0)
[2022-06-09 18:08] LABS: INR 0.91; PARTIAL THROMBOPLASTIN TIME 27.7 SECONDS (24.8-34.2); PROTHROMBIN TIME 12.4 SECONDS (12.5-14.5)
[2022-06-09 18:23] LABS: THYROID STIMULATING HORMONE 6.406 uIU/ML (0.55-4.78)
[2022-06-09 18:25] LABS: ALBUMIN 3.6 G/DL (3.2-5.2); ALKALINE PHOSPHATASE 108 U/L (46-116); ALT/SGPT 21 U/L (7.0-40); AST/SGOT 17 U/L (<34); BILIRUBIN,TOTAL 0.5 MG/DL (0.3-1.2); BLOOD UREA NITROGEN 14 MG/DL (9-23); CALCIUM LEVEL 9.4 MG/DL (8.5-10.1); CARBON DIOXIDE LEVEL 25 MMOL/L (20-31); CHLORIDE LEVEL 106 MMOL/L (98-107); CREATININE FOR GFR 0.53 MG/DL (0.55-1.30); GLOMERULAR FILTRATION RATE > 60.0 (>51); GLUCOSE, FASTING 89 MG/DL (60-100); POTASSIUM SERUM 4.3 MMOL/L (3.5-5.1); SODIUM LEVEL 141 MMOL/L (136-145); TOTAL PROTEIN 6.9 G/DL (5.7-8.2)
[2022-06-09 18:26] LABS: FREE T4 0.97 NG/DL (0.89-1.76)
[2022-06-09 18:29] LABS: THYROID PEROXIDASE ANTIBODY 289 U/ML (<60.0)
== END ==
LOC: M PLALAB 16:36
PROVIDERS: ATTEND Family Medicine
DX: D68.61 Antiphospholipid syndrome (principal); E78.2 Mixed hyperlipidemia

== ENCOUNTER → 2022-07-05 | Outpatient (CLI) | payer OTHER ==
[~2022-07-05] MED LIST changes: +ELIQ5TAB PO; +OXYC-517 PO; +SENN8.6T28 PO
[2022-07-05 12:17] LABS: BASO # 0.1 10^3/uL (0.0-0.2); BASO % 0.6 % (0.0-1.0); EOS # 0.2 10^3/uL (0.0-0.5); EOS % 2.4 % (0.0-3.0); HEMATOCRIT 45.5 % (36.0-47.0); LYMPH # 2.4 10^3/uL (1.5-5.0); LYMPH % 24.8 % (24.0-44.0); MEAN CORPUSCULAR VOLUME 87.8 fl (80.0-96.0); MONO # 0.6 10^3/uL (0.0-0.8); MONO % 5.7 % (2.0-8.0); NEUTROPHILS # 6.3 10^3/uL (1.5-8.5); NEUTROPHILS % 66.1 % (36.0-66.0); PLATELET COUNT, AUTOMATED 276 10^3/uL (150-450); RED BLOOD COUNT 5.18 10^6/uL (4.00-5.40); WHITE BLOOD COUNT 9.6 10^3/uL (4.0-10.0)
[2022-07-05 12:51] LABS: ALBUMIN 3.9 G/DL (3.2-5.2); ALKALINE PHOSPHATASE 106 U/L (46-116); ALT/SGPT 25 U/L (7.0-40); AST/SGOT 18 U/L (<34); BILIRUBIN,TOTAL 0.6 MG/DL (0.3-1.2); BLOOD UREA NITROGEN 19 MG/DL (9-23); CALCIUM LEVEL 9.6 MG/DL (8.5-10.1); CARBON DIOXIDE LEVEL 29 MMOL/L (20-31); CHLORIDE LEVEL 104 MMOL/L (98-107); CREATININE FOR GFR 0.54 MG/DL (0.55-1.30); FERRITIN 90.1 NG/ML (7.3-270.7); GLOMERULAR FILTRATION RATE > 60.0 (>51); GLUCOSE, FASTING 102 MG/DL (60-100); POTASSIUM SERUM 4.6 MMOL/L (3.5-5.1); SODIUM LEVEL 140 MMOL/L (136-145); THYROID STIMULATING HORMONE 1.606 uIU/ML (0.55-4.78)
[2022-07-05 12:52] LABS: FREE T4 1.24 NG/DL (0.89-1.76)
[2022-07-05 12:53] LABS: VITAMIN B12 LEVEL 367 PG/ML (211-911)
[2022-07-08 16:14] LABS: ANA (HEP2) Negative (.); BETA-2 GLYCOPROTEIN I ABY IGA <9 (0-25); BETA-2 GLYCOPROTEIN I ABY IGG <9 (0-20); BETA-2 GLYCOPROTEIN I ABY IGM <9 (0-32); CARDIOLIPIN IGA ANTIBODY <9 APL U/mL (0-11); CARDIOLIPIN IGG ANTIBODY <9 GPL U/mL (0-14); CARDIOLIPIN IGM ANTIBODY 16 MPL U/mL (0-12)
== END ==
LOC: M PLALAB 09:24
PROVIDERS: ATTEND Family Medicine
DX: D68.61 Antiphospholipid syndrome (principal)

== ENCOUNTER → 2022-07-06 | Outpatient (CLI) | payer OTHER | LOC: M LABSMTC 09:43 | PROVIDERS: ATTEND Anesthesiology | DX: Z01.812 Encounter for preprocedural laboratory examination (principal); Z11.52 Encounter for screening for COVID-19 ==

== ENCOUNTER 2022-07-11 10:21 | Day surgery (SDC) | payer OTHER ==
[~2022-07-11] VITALS: Ht 149.9 cm; Wt 113.4 kg
[~2022-07-11 10:21] MED LIST changes: +ACETAMINOPHEN 500 MG TAB PO ONE; +CelecoXIB 400 MG CAP PO ONE; +GABAPENTIN 300 MG CAP PO ONE; +ONDANSETRON 4MG 2ML VIAL IV ONE; -OXYC-517 PO; -SENN8.6T28 PO
[2022-07-11] MEDS ORDERED: LIDOCAINE 2% 100MG/5ML SDV (FOR ANES.) As Ordered ONE (11:04)
[2022-07-11] MEDS ORDERED: propofoL 200 MG/20 ML VIAL As Ordered ONE (11:04)
[2022-07-11] MEDS ORDERED: ONDANSETRON 4MG 2ML VIAL As Ordered ONE (11:05)
[2022-07-11] MEDS ORDERED: LR 1,000 ML IV SCH ×2 (11:10→14:05)
[2022-07-11] MEDS ORDERED: fentaNYL 100 MCG/2 ML INJECTION As Ordered ONE ×2 (12:03→13:39)
[2022-07-11] MEDS ORDERED: MIDAZOLAM INJ 2MG/2ML VIAL As Ordered ONE (12:03)
[2022-07-11] MEDS ORDERED: EPINEPHrine INJ 1 MG/ML 1ML AMP As Ordered ONE ×2 (12:25→13:28)
[2022-07-11] MEDS ORDERED: BUPIVACAINE/EPIN 0.5% 30ML VIAL As Ordered ONE (12:25)
[2022-07-11] MEDS ORDERED: ONDANSETRON 4MG 2ML VIAL IV PRN (14:05)
[2022-07-11] MEDS ORDERED: oxyCODONE 5MG TAB PO PRN (14:05)
[2022-07-11] MEDS ORDERED: fentaNYL 100 MCG/2 ML INJECTION IV PRN (14:05)
[2022-07-11] MEDS: HYDROMORPHONE HCL 0.5 MG/ 0.5 ML SYRINGE IV PRN ×3 (14:28→14:51)
[2022-07-11] MEDS ORDERED: OXYC-517 PO (14:32)
[2022-07-11] MEDS ORDERED: SENN8.6T28 PO (14:32)
[2022-07-11 15:50] VITALS: BP 146/74
== END 2022-07-11 16:00 | disposition home or self-care (01) ==
LOC: M SDC 10:21
PROVIDERS: ATTEND Orthopaedic Surgery Adult Reconstructive Orthopaedic Surgery
DX: S83.242D Other tear of medial meniscus, current injury, left knee, subsequent encounter (principal); X58.XXXD Exposure to other specified factors, subsequent encounter; G57.12 Meralgia paresthetica, left lower limb; J45.909 Unspecified asthma, uncomplicated; E03.9 Hypothyroidism, unspecified; M50.20 Other cervical disc displacement, unspecified cervical region; R21 Rash and other nonspecific skin eruption; Z86.73 Personal history of transient ischemic attack (TIA), and cerebral infarction without residual deficits; Z86.711 Personal history of pulmonary embolism; Z79.899 Other long term (current) drug therapy; Z79.01 Long term (current) use of anticoagulants; Z79.890 Hormone replacement therapy
CPT/HCPCS: 29883; J1100; J1170; J2250; J2405; J3010

== ENCOUNTER → 2022-08-14 | Outpatient (REF) | payer OTHER ==
[~2022-08-14] MED LIST changes: -ACETAMINOPHEN 500 MG TAB PO ONE; -CelecoXIB 400 MG CAP PO ONE; -GABAPENTIN 300 MG CAP PO ONE; -ONDANSETRON 4MG 2ML VIAL IV ONE; +OXYC-517 PO; +SENN8.6T28 PO
[2022-08-14 14:00] LABS: APPEARANCE, URINE HAZY (CLEAR); BACTERIA, URINE AUTO NEGATIVE (NEGATIVE); BILIRUBIN, URINE AUTO NEGATIVE (NEGATIVE); BLOOD, URINE BLOOD 3+ (NEGATIVE); COLOR, URINE YELLOW (YELLOW); GLUCOSE, URINE (UA) AUTO NEGATIVE (NEGATIVE); KETONE, URINE AUTO NEGATIVE (NEGATIVE); LEUKOCYTE ESTERASE, URINE AUTO TRACE (NEGATIVE); MUCUS, URINE SMALL (NEGATIVE); NITRITE, URINE AUTO NEGATIVE (NEGATIVE); PROTEIN, URINE AUTO NEGATIVE (NEGATIVE); RBC, URINE AUTO 13 /HPF (0-3); SQUAMOUS EPITHELIAL CELL UR AU 4 /HPF (0-6); UROBILINOGEN, URINE AUTO 0.2 mg/dL (0.0-2.0); WBC, URINE AUTO 3 /HPF (0-3)
[2022-08-14 15:13] LABS: GC DNA AMPLIFICATION NEGATIVE (NEGATIVE)
== END ==
LOC: M SFHCPLAZ 13:01
PROVIDERS: ATTEND Physician Assistant Medical
DX: Z12.4 Encounter for screening for malignant neoplasm of cervix (principal); Z78.9 Other specified health status; R30.0 Dysuria

== ENCOUNTER 2022-08-17 07:21 | Outpatient (RCR) | payer OTHER | END 2022-08-22 | LOC: M PT 07:21 | PROVIDERS: ATTEND Physician Assistant | DX: S83.242D Other tear of medial meniscus, current injury, left knee, subsequent encounter (principal) ==

== ENCOUNTER → 2022-09-07 | Outpatient (CLI) | payer OTHER ==
[2022-09-07 12:00] LABS: ESTRADIOL < 19.0 PG/ML
[2022-09-07 12:01] LABS: LUTEINIZING HORMONE 35.2 mIU/ML
[2022-09-07 12:02] LABS: PROGESTERONE 0.24 NG/ML
[2022-09-07 14:50] LABS: APPEARANCE, URINE CLEAR (CLEAR); BACTERIA, URINE AUTO NEGATIVE (NEGATIVE); BILIRUBIN, URINE AUTO NEGATIVE (NEGATIVE); BLOOD, URINE BLOOD NEGATIVE (NEGATIVE); COLOR, URINE YELLOW (YELLOW); GLUCOSE, URINE (UA) AUTO NEGATIVE (NEGATIVE); KETONE, URINE AUTO NEGATIVE (NEGATIVE); LEUKOCYTE ESTERASE, URINE AUTO TRACE (NEGATIVE); MUCUS, URINE SMALL (NEGATIVE); NITRITE, URINE AUTO NEGATIVE (NEGATIVE); PROTEIN, URINE AUTO NEGATIVE (NEGATIVE); RBC, URINE AUTO 0 /HPF (0-3); SPECIFIC GRAVITY URINE AUTO 1.025 (1.002-1.035); SQUAMOUS EPITHELIAL CELL UR AU 1 /HPF (0-6); UROBILINOGEN, URINE AUTO 0.2 mg/dL (0.0-2.0); WBC, URINE AUTO 2 /HPF (0-3)
== END ==
LOC: M PLALAB 09:14
PROVIDERS: ATTEND Physician Assistant
DX: N94.10 Unspecified dyspareunia (principal)

== ENCOUNTER 2022-09-11 07:57 | Outpatient (RCR) | payer OTHER | END 2022-09-22 | LOC: M PT 07:57 | PROVIDERS: ATTEND Physician Assistant | DX: S83.242A Other tear of medial meniscus, current injury, left knee, initial encounter (principal) ==

== ENCOUNTER 2022-10-07 06:44 | Emergency (ER) | payer OTHER ==
[~2022-10-07] VITALS: Ht 149.9 cm; Wt 115.0 kg
[2022-10-07] MEDS ORDERED: GABA-282 PO (06:56)
[2022-10-07] MEDS ORDERED: MELO15TA28 PO (06:56)
[2022-10-07] MEDS ORDERED: PRED20TA PO (10:24)
[2022-10-07 10:29] VITALS: BP 137/78
== END 2022-10-07 10:45 | disposition home or self-care (01) ==
LOC: M ED 08:16
DX: G57.92 Unspecified mononeuropathy of left lower limb (principal); I10 Essential (primary) hypertension; Z86.718 Personal history of other venous thrombosis and embolism; E03.9 Hypothyroidism, unspecified; Z79.899 Other long term (current) drug therapy

== ENCOUNTER → 2022-11-13 | Outpatient (CLI) | payer OTHER ==
[~2022-11-13] MED LIST changes: +GABA-282 PO; +MELO15TA28 PO
== END ==
LOC: M SOG 10:01
PROVIDERS: ATTEND Physician Assistant
DX: M79.645 Pain in left finger(s) (principal)

== ENCOUNTER → 2022-11-30 | Outpatient (CLI) | payer OTHER ==
[2022-12-01 21:07] LABS: ANA (HEP2) Negative (.)
== END ==
LOC: M PLAIMG 07:59
PROVIDERS: ATTEND Physician Assistant Medical
DX: R89.9 Unspecified abnormal finding in specimens from other organs, systems and tissues (principal); G57.92 Unspecified mononeuropathy of left lower limb

== ENCOUNTER → 2022-12-01 | Outpatient (REF) | payer OTHER | LOC: M SFHCPLAZ 10:07 | PROVIDERS: ATTEND Physician Assistant Medical | DX: D23.72 Other benign neoplasm of skin of left lower limb, including hip (principal) ==

== ENCOUNTER 2022-12-11 06:04 | Day surgery (SDC) | payer OTHER ==
[~2022-12-11] VITALS: Ht 152.4 cm; Wt 115.4 kg
[~2022-12-11 06:04] MED LIST changes: +LIDOCAINE W/EPINEPHRINE 1% 20ML VIAL XX ONE; +SODIUM BICARBONATE 8.4% INJ 50MEQ 50ML VIAL XX ONE
[2022-12-11] MEDS ORDERED: BACITRACIN OINTMENT 30GM TUBE As Ordered ONE (07:19)
[2022-12-11] MEDS ORDERED: LIDOCAINE 1% MDV 20ML VIAL As Ordered ONE (07:27)
[2022-12-11] MEDS ORDERED: LIDOCAINE 1% SDV 30ML VIAL XX ONE (07:50)
[2022-12-11 08:31] VITALS: BP 138/75; TEMP 97.8; O2SAT 95
== END 2022-12-11 08:45 | disposition home or self-care (01) ==
LOC: M SDC 06:04
PROVIDERS: ATTEND Orthopaedic Surgery Hand Surgery
DX: D48.7 Neoplasm of uncertain behavior of other specified sites (principal); E07.9 Disorder of thyroid, unspecified

== ENCOUNTER → 2022-12-15 | Outpatient (CLI) | payer OTHER ==
[~2022-12-15] MED LIST changes: -LIDOCAINE W/EPINEPHRINE 1% 20ML VIAL XX ONE; -SODIUM BICARBONATE 8.4% INJ 50MEQ 50ML VIAL XX ONE
== END ==
LOC: M WHC 15:25
PROVIDERS: ATTEND Nurse Practitioner Family
DX: Z12.31 Encounter for screening mammogram for malignant neoplasm of breast (principal); Z80.3 Family history of malignant neoplasm of breast

== ENCOUNTER → 2022-12-15 | Outpatient (REF) | payer OTHER | LOC: M SFHCWAGY 16:58 | PROVIDERS: ATTEND Nurse Practitioner Family | DX: Z11.3 Encounter for screening for infections with a predominantly sexual mode of transmission (principal) ==

== ENCOUNTER → 2022-12-18 | Outpatient (CLI) | payer OTHER | LOC: M SOG 07:50 | PROVIDERS: ATTEND Orthopaedic Surgery | DX: Z53.9 Procedure and treatment not carried out, unspecified reason (principal); M25.562 Pain in left knee ==

== ENCOUNTER → 2023-07-27 | Outpatient (CLI) | payer BC, OTHER ==
[~2023-07-27] MED LIST changes: +MECL-209 PO; -MECL1TAB31 PO
== END ==
LOC: M PLALAB 15:59 → M PLAIMG 15:59
PROVIDERS: ATTEND Nurse Practitioner Family
DX: R06.02 Shortness of breath (principal)

== ENCOUNTER → 2023-08-16 | Outpatient (CLI) | payer BC, OTHER | LOC: M SOG 16:03 | PROVIDERS: ATTEND Orthopaedic Surgery Hand Surgery | DX: R22.32 Localized swelling, mass and lump, left upper limb (principal) ==

== ENCOUNTER 2023-10-18 10:35 | Emergency (ER) | payer BC, OTHER ==
[~2023-10-18] VITALS: Ht 149.9 cm; Wt 107.1 kg
[2023-10-18] MEDS ORDERED: BREO1INH INH (10:48)
[2023-10-18 12:22] LABS: BASO # 0.1 10^3/uL (0.0-0.2); BASO % 0.8 % (0.0-1.0); EOS # 0.3 10^3/uL (0.0-0.5); EOS % 3.7 % (0.0-3.0); HEMATOCRIT 45.3 % (36.0-47.0); HEMOGLOBIN 15.3 g/dl (12.0-15.5); LYMPH # 2.2 10^3/uL (1.5-5.0); LYMPH % 29.3 % (24.0-44.0); MEAN CORPUSCULAR HEMOGLOBIN 28.8 pg (27.0-33.0); MEAN CORPUSCULAR HGB CONC 33.8 g/dl (32.0-36.5); MEAN CORPUSCULAR VOLUME 85.3 fl (80.0-96.0); MONO # 0.6 10^3/uL (0.0-0.8); MONO % 7.2 % (2.0-8.0); NEUTROPHILS # 4.5 10^3/uL (1.5-8.5); NEUTROPHILS % 58.7 % (36.0-66.0); PLATELET COUNT, AUTOMATED 258 10^3/uL (150-450); RED BLOOD COUNT 5.31 10^6/uL (4.00-5.40); WHITE BLOOD COUNT 7.6 10^3/uL (4.0-10.0)
[2023-10-18] MEDS: methylPREDNISolone 125MG 2ML VIAL IV ONE (12:30)
[2023-10-18] MEDS: IPRATROPIUM 0.5MG/ALBUTEROL 2.5MG INH SOL UD 3ML (DUONEB) NEB ONE (13:10)
[2023-10-18 15:07] LABS: ALBUMIN 3.8 G/DL (3.2-5.2); ALKALINE PHOSPHATASE 82 U/L (46-116); ALT/SGPT 25 U/L (7.0-40); AST/SGOT 68 U/L (<34); BILIRUBIN,DIRECT 0.2 MG/DL (<0.4); BILIRUBIN,TOTAL 0.7 MG/DL (0.3-1.2); BLOOD UREA NITROGEN 9 MG/DL (9-23); CALCIUM LEVEL 8.8 MG/DL (8.5-10.1); CARBON DIOXIDE LEVEL 26 MMOL/L (20-31); CHLORIDE LEVEL 105 MMOL/L (98-107); CREATININE FOR GFR 0.41 MG/DL (0.55-1.30); GLOMERULAR FILTRATION RATE > 60.0 (>51); GLUCOSE, FASTING 98 MG/DL (60-100); SODIUM LEVEL 139 MMOL/L (136-145); TOTAL PROTEIN 6.8 G/DL (5.7-8.2)
[2023-10-18] MEDS ORDERED: PRED20TA PO (15:19)
[2023-10-18 15:22] VITALS: TEMP 97.8; O2SAT 92
[2023-10-18 16:00] VITALS: BP 170/90
[2023-10-18] MEDS ORDERED: VENTAER INH (16:03)
[2023-10-18] MEDS ORDERED: BENZ200C70 PO (16:03)
== END 2023-10-18 17:33 | disposition home or self-care (01) ==
LOC: M ED 10:35
DX: J06.9 Acute upper respiratory infection, unspecified (principal); Z20.9 Contact with and (suspected) exposure to unspecified communicable disease; J45.909 Unspecified asthma, uncomplicated; Z87.01 Personal history of pneumonia (recurrent); G47.30 Sleep apnea, unspecified; E03.9 Hypothyroidism, unspecified; M54.9 Dorsalgia, unspecified; Z86.711 Personal history of pulmonary embolism; Z86.718 Personal history of other venous thrombosis and embolism; Z79.01 Long term (current) use of anticoagulants; Z79.899 Other long term (current) drug therapy
CPT/HCPCS: 36415; 71045; 80048; 80076; 84132; 85025; 87486; 87581; 87633; 87798; 93005; 93041; 94640; 94760; 96374; 99284; J2919

== ENCOUNTER → 2023-11-16 | Outpatient (CLI) | payer BC ==
[~2023-11-16] MED LIST changes: +BENZ200C70 PO; +BREO1INH INH
[2023-11-16 10:23] LABS: BASO # 0.1 10^3/uL (0.0-0.2); BASO % 0.5 % (0.0-1.0); EOS # 0.3 10^3/uL (0.0-0.5); EOS % 2.5 % (0.0-3.0); HEMATOCRIT 42.3 % (36.0-47.0); HEMOGLOBIN 14.4 g/dl (12.0-15.5); LYMPH # 1.7 10^3/uL (1.5-5.0); LYMPH % 16.1 % (24.0-44.0); MEAN CORPUSCULAR HEMOGLOBIN 29.4 pg (27.0-33.0); MEAN CORPUSCULAR VOLUME 86.5 fl (80.0-96.0); MONO # 0.6 10^3/uL (0.0-0.8); MONO % 6.2 % (2.0-8.0); NEUTROPHILS # 7.7 10^3/uL (1.5-8.5); NEUTROPHILS % 74.5 % (36.0-66.0); PLATELET COUNT, AUTOMATED 275 10^3/uL (150-450); RED BLOOD COUNT 4.89 10^6/uL (4.00-5.40); WHITE BLOOD COUNT 10.4 10^3/uL (4.0-10.0)
[2023-11-16 10:51] LABS: HEMOGLOBIN A1c 5.5 % (4.0-6.0)
[2023-11-16 10:58] LABS: ALBUMIN 3.7 G/DL (3.2-5.2); ALKALINE PHOSPHATASE 87 U/L (46-116); ALT/SGPT 35 U/L (7.0-40); AST/SGOT 10 U/L (<34); BILIRUBIN,TOTAL 0.9 MG/DL (0.3-1.2); BLOOD UREA NITROGEN 11 MG/DL (9-23); CALCIUM LEVEL 9.2 MG/DL (8.5-10.1); CARBON DIOXIDE LEVEL 29 MMOL/L (20-31); CHLORIDE LEVEL 106 MMOL/L (98-107); GLOMERULAR FILTRATION RATE > 60.0 (>51); GLUCOSE, FASTING 113 MG/DL (60-100); SODIUM LEVEL 141 MMOL/L (136-145); TOTAL PROTEIN 6.6 G/DL (5.7-8.2)
[2023-11-16 10:59] LABS: FERRITIN 83.6 NG/ML (7.3-270.7); FREE T4 1.06 NG/DL (0.89-1.76)
[2023-11-16 11:00] LABS: VITAMIN B12 LEVEL 501 PG/ML (211-911)
[2023-11-21 04:07] LABS: BETA-2 GLYCOPROTEIN I ABY IGA <9 (0-25); BETA-2 GLYCOPROTEIN I ABY IGG <9 (0-20); BETA-2 GLYCOPROTEIN I ABY IGM <9 (0-32); CARDIOLIPIN IGA ANTIBODY <9 APL U/mL (0-11); CARDIOLIPIN IGG ANTIBODY <9 GPL U/mL (0-14); CARDIOLIPIN IGM ANTIBODY <9 MPL U/mL (0-12); INSULIN LEVEL 23.9 uIU/mL (2.6-24.9)
[2023-11-22 10:51] LABS: DRVV SCREEN 52.3 SECONDS
[2023-11-22 10:52] LABS: PTT LUPUS TYPE ANTICOAG SCREEN 1.3 (0-1.20)
[2023-11-22 10:59] LABS: DRVV CONFIRM 46.7 SECONDS; LUPUS CONFIRM RATIO 1.19
[2023-11-22 11:12] LABS: NORMALIZED RATIO 1.09 (0.00-1.20)
== END ==
LOC: M PLAIMG 07:43
PROVIDERS: ATTEND Family Medicine
DX: M17.12 Unilateral primary osteoarthritis, left knee (principal); D68.61 Antiphospholipid syndrome; R73.01 Impaired fasting glucose; K76.0 Fatty (change of) liver, not elsewhere classified

== ENCOUNTER → 2023-11-27 | Outpatient (REF) | payer BC | LOC: M SFHCPLAZ 16:22 | PROVIDERS: ATTEND Family Medicine | DX: I10 Essential (primary) hypertension (principal); E03.9 Hypothyroidism, unspecified ==

== ENCOUNTER → 2023-12-24 | Outpatient (CLI) | payer BC ==
[2023-12-24 16:54] LABS: ALBUMIN 3.7 G/DL (3.2-5.2); ALKALINE PHOSPHATASE 91 U/L (46-116); ALT/SGPT 26 U/L (7.0-40); AST/SGOT 11 U/L (<34); BILIRUBIN,TOTAL 0.6 MG/DL (0.3-1.2); BLOOD UREA NITROGEN 12 MG/DL (9-23); CALCIUM LEVEL 9.3 MG/DL (8.5-10.1); CARBON DIOXIDE LEVEL 27 MMOL/L (20-31); CHLORIDE LEVEL 110 MMOL/L (98-107); CREATININE FOR GFR 0.59 MG/DL (0.55-1.30); GLOMERULAR FILTRATION RATE > 60.0 (>51); GLUCOSE, FASTING 95 MG/DL (60-100); MAGNESIUM LEVEL 2.1 MG/DL (1.8-2.4); SODIUM LEVEL 141 MMOL/L (136-145); THYROID STIMULATING HORMONE 1.845 uIU/ML (0.55-4.78); TOTAL PROTEIN 6.2 G/DL (5.7-8.2)
[2023-12-24 16:56] LABS: FREE T4 1.16 NG/DL (0.89-1.76)
== END ==
LOC: M PLALAB 12:28
PROVIDERS: ATTEND Family Medicine
DX: I10 Essential (primary) hypertension (principal); E03.9 Hypothyroidism, unspecified

== ENCOUNTER → 2024-01-01 | Outpatient (CLI) | payer BC | LOC: M RAD 07:02 | PROVIDERS: ATTEND Family Medicine | DX: K76.0 Fatty (change of) liver, not elsewhere classified (principal); R16.0 Hepatomegaly, not elsewhere classified ==

== ENCOUNTER → 2024-01-03 | Outpatient (REF) | payer BC | LOC: M SFHCPLAZ 16:39 | PROVIDERS: ATTEND Family Medicine | DX: I10 Essential (primary) hypertension (principal); E03.9 Hypothyroidism, unspecified; Z53.8 Procedure and treatment not carried out for other reasons ==

== ENCOUNTER → 2024-06-16 | Outpatient (CLI) | payer BC ==
[~2024-06-16] MED LIST changes: +GABA-1172 PO; -GABA-282 PO
[2024-06-16 14:17] LABS: THYROID STIMULATING HORMONE 6.053 uIU/ML (0.55-4.78)
[2024-06-16 14:18] LABS: FREE T4 1.04 NG/DL (0.89-1.76)
[2024-06-16 14:19] LABS: ALBUMIN 3.7 G/DL (3.2-5.2); ALKALINE PHOSPHATASE 89 U/L (35-104); ALT/SGPT 23 U/L (7.0-40); AST/SGOT 12 U/L (<34); BILIRUBIN,TOTAL 0.5 MG/DL (0.3-1.2); BLOOD UREA NITROGEN 12 MG/DL (9-23); CALCIUM LEVEL 9.7 MG/DL (8.5-10.1); CARBON DIOXIDE LEVEL 29 MMOL/L (20-31); CHLORIDE LEVEL 107 MMOL/L (98-107); CREATININE FOR GFR 0.55 MG/DL (0.55-1.30); GLOMERULAR FILTRATION RATE > 60.0 (>51); GLUCOSE, FASTING 78 MG/DL (60-100); MAGNESIUM LEVEL 2.1 MG/DL (1.8-2.4); POTASSIUM SERUM 4.3 MMOL/L (3.5-5.1); SODIUM LEVEL 144 MMOL/L (136-145); TOTAL PROTEIN 6.8 G/DL (5.7-8.2)
[2024-06-16 14:31] LABS: IMMUNOGLOBULIN A 150.5 MG/DL (40-350); IMMUNOGLOBULIN G 751 MG/DL (650-1600)
[2024-06-16 15:59] LABS: IMMUNOGLOBULIN E < 2.5 IU/ML (0-378)
[2024-06-19 14:51] LABS: BERMUDA GRASS IGE < 0.10 kU/L (<0.10); BIRCH IGE < 0.10 kU/L (<0.10); COMMON RAGWEED SHORT IGE < 0.10 kU/L (<0.10); D001 IGE D PTERONYSSINUS < 0.10 kU/L (<0.10); D002-IGE D FARINAE < 0.10 kU/L (<0.10); E001-IGE CAT DANDER < 0.10 kU/L (<0.10); E005-IGE DOG DANDER < 0.10 kU/L (<0.10); ELM IGE < 0.10 kU/L (<0.10); I006 IGE COCKROACH < 0.10 kU/L (<0.10); M002 IGE CLADOSPORIUM HERBARU < 0.10 kU/L (<0.10); M003 IGE ASPERGILLUS FUMIGATU < 0.10 kU/L (<0.10); M006 IGE ALTERNIA ALTERNATA < 0.10 kU/L (<0.10); M1-PENICILLIUM NOTATUM < 0.10 kU/L (<0.10); MOUSE URINE IGE < 0.10 kU/L (<0.10); MUGWORT IGE < 0.10 kU/L (<0.10); OAK IGE < 0.10 kU/L (<0.10); ROUGH PIGWEED IGE < 0.10 kU/L (<0.10); SHEEP SORREL IGE < 0.10 kU/L (<0.10); SYCAMORE IGE < 0.10 kU/L (<0.10); T001-IGE MAPLE BOX ELDER < 0.10 kU/L (<0.10); T006-IGE MOUNTAIN CEDAR < 0.10 kU/L (<0.10); T014 COTTONWOOD IGE < 0.10 kU/L (<0.10); TIMOTHY GRASS IGE < 0.10 kU/L (<0.10); WALNUT TREE IGE < 0.10 kU/L (<0.10); WHITE ASH IGE < 0.10 kU/L (<0.10); WHITE MULBERRY IGE < 0.10 kU/L (<0.10)
[2024-06-19 17:07] LABS: TISSUE TRANSGLUTAMINASE IgA < 1.0 U/mL (<15.0)
[2024-06-20 15:48] LABS: IMMUNOGLOBULIN E FOR ALLERGENS < 2 kU/L (<OR=114)
== END ==
LOC: M PLALAB 11:21
PROVIDERS: ATTEND Family Medicine
DX: I10 Essential (primary) hypertension (principal); E03.9 Hypothyroidism, unspecified; J45.40 Moderate persistent asthma, uncomplicated; K52.9 Noninfective gastroenteritis and colitis, unspecified

== ENCOUNTER → 2024-09-17 | Outpatient (CLI) | payer BC | LOC: M PLAIMG 16:25 | PROVIDERS: ATTEND Physician Assistant Medical | DX: M47.816 Spondylosis without myelopathy or radiculopathy, lumbar region (principal); M54.50 Low back pain, unspecified ==

== ENCOUNTER → 2024-10-27 | Outpatient (CLI) | payer BC | LOC: M PLAIMG 13:59 | PROVIDERS: ATTEND Physician Assistant Medical | DX: M54.42 Lumbago with sciatica, left side (principal); M47.816 Spondylosis without myelopathy or radiculopathy, lumbar region ==

== ENCOUNTER → 2025-01-06 | Outpatient (CLI) | payer BC ==
[~2025-01-06] MED LIST changes: +LEVO112T2 PO; +LOSA25TA13 PO; +NORV5TAB PO; +OMEP40CA4 PO; +TIRZ2.5P3 SQ
== END ==
LOC: M RAD 08:42
PROVIDERS: ATTEND Physician Assistant Medical
DX: I16.9 Hypertensive crisis, unspecified (principal)